=== PATIENT | male | born 1935 | race Caucasian/White ===

== ENCOUNTER 2016-07-27 02:29 | Observation (INO) | payer MEDICARE ==
[2016-07-27 02:41] LABS: Glucose,Whole Blood 300 mg/dL (75-99)
[2016-07-27] MEDS ORDERED: MORPHINE SULFATE 4 MG/ML SYRINGE IV STA (02:52)
[2016-07-27 03:34] LABS: Anion Gap 11 mmol/L; Blood Urea Nitrogen 14 mg/dL (9-20); C Reactive Protein 47.4 mg/L (<10.0); Calcium 9.1 mg/dL (8.4-10.2); Carbon Dioxide 24 mmol/L (22-30); Chloride 98 mmol/L (98-107); Glucose 307 mg/dL (74-99); Non-African American GFR(MDRD) >60 (>60 ml/min/1.73 sqM); Potassium 4.3 mmol/L (3.5-5.1); Sodium 133 mmol/L (137-145)
--- NOTE | 2016-07-27 03:46 | CT ---
EXAMINATION TYPE: CT brain wo con DATE OF EXAM: 07/27/2016 3:29 AM COMPARISON: NONE HISTORY: fever, LAWS/neck pain, depression CT DLP: 995.50 mGycm Automated exposure control for dose reduction was used. FINDINGS: There is no acute intracranial hemorrhage, mass effect, or midline shift identified. The cortical sulci and ventricles are prominent with age-related atrophic changes of brain. The poste rior horns of lateral ventricles especially on the right side are prominent probably related to centr al cerebral atrophy. Periventricular white matter ischemic changes are suggested bilaterally of chron ic nature. Vascular calcifications are noted in the base of the brain. The globes are intact. Xnee-or-ofaafhry mucosal thickening is noted in the maxillary and ethmoid and frontal, sphenoid sinuses with chronic sinusitis changes. IMPRESSION: 1. No acute intracranial hemorrhage, mass effect, or midline shift is seen. 2. Age-related atrophic changes of brain. 3. Chronic pansinusitis.
--- NOTE | 2016-07-27 04:46 | ED ---
Neck Injury/Pain HPI - General Chief Complaint: Neck Pain/Injury Stated Complaint: Neck Pain Time Seen by Provider: 07/27/16 02:35 Source: RN notes reviewed Mode of arrival: EMS Limitations: no limitations - History of Present Illness Initial Comments: This patient is an 81-year-old man who complains of headache and neck pain. The symptoms have been coming on over the course of tonight. The patient states that last week he had "flu," and now that he is getting over this he has developed occipital headache with neck pain. Patient states that the pain is severe, constant, and he is not really able to characterize the type of pain. He does have pain with movement of the neck. The patient is not having fevers. He is denying neurologic type symptoms. No rash. MD Complaint: neck pain Onset/Timin -: days(s) Place: home Radiation: head, occiput Severity: severe, constant Consistency: constant Improves With: none Worsens With: none Associated Symptoms: headache Treatments Prior to Arrival: none - Related Data Home Medications Medication Instructions Recorded Confirmed metFORMIN HCL 1,000 mg PO BID 12/01/15 12/02/15 Lisinopril [Zestril] 20 mg PO DAILY 12/02/15 12/02/15 Simvastatin 10 mg PO HS 12/02/15 12/02/15 Previous Rx's Medication Instructions Recorded Ciprofloxacin HCl [Cipro] 500 mg PO Q12HR #14 tablet 12/05/15 Fluconazole [Diflucan] 100 mg PO DAILY #7 tab 12/05/15 Losartan [Cozaar] 50 mg PO DAILY #30 tab 12/05/15 Mirtazapine [Remeron] 15 mg PO W/SUPPER #30 tab 12/05/15 Allergies Allergy/AdvReac Type Severity Reaction Status Date / Time strawberry Allergy Unknown Verified 07/27/16 06:47 Review of Systems ROS Statement: Those systems with pertinent positive or pertinent negative responses have been documented in the HPI. ROS Other: All systems not noted in ROS Statement are negative. Constitutional: Denies: fever, chills, weakness Eyes: Denies: eye pain, vision change ENT: Denies: ear pain, congestion Respiratory: Denies: cough, dyspnea Cardiovascular: Denies: chest pain, palpitations Gastrointestinal: Denies: abdominal pain, nausea, vomiting Genitourinary: Denies: dysuria Musculoskeletal: Denies: back pain Skin: Denies: rash Neurological: Reports: headache. Denies: weakness, numbness, paresthesias, confusion Past Medical History Past Medical History: Diabetes Mellitus, Hypertension Additional Past Medical History / Comment(s): aortic aneursym, hernia History of Any Multi-Drug Resistant Organisms: None Reported Past Surgical History: Unable to Obtain Past Psychological History: No Psychological Hx Reported Smoking Status: Former smoker Past Alcohol Use History: Occasional Past Drug Use History: None Reported - Past Family History Father Family Medical History: CVA/TIA Son(s) Additional Family Medical History / Comment(s): He has 2 sons. One has coronary artery disease and a stent placed at age 58. He has a second son with hypertension, cholesterol, diabetes. Daughter(s) Additional Family Medical History / Comment(s): He has 3 daughters. Brother(s) Additional Family Medical History / Comment(s): Patient has a total of 6 brothers and one from a myocardial infarction. One at age 84 from a bowel problem but not cancer. Sister(s) Additional Family Medical History / Comment(s): He has 4 sisters. General Exam Limitations: no limitations General appearance: alert, in distress Head exam: Present: atraumatic, normocephalic, normal inspection Eye exam: Present: normal appearance. Absent: scleral icterus, conjunctival injection ENT exam: Present: normal oropharynx, mucous membranes moist, TM's normal bilaterally Neck exam: Present: normal inspection. Absent: tenderness, meningismus, full ROM Respiratory exam: Present: normal lung sounds bilaterally. Absent: respiratory distress, wheezes, rales, rhonchi, stridor Cardiovascular Exam: Present: regular rate, normal rhythm, normal heart sounds. Absent: systolic murmur, diastolic murmur, rubs, gallop GI/Abdominal exam: Present: soft. Absent: distended, tenderness, guarding Extremities exam: Present: normal inspection, normal capillary refill. Absent: pedal edema, calf tenderness Back exam: Present: normal inspection. Absent: CVA tenderness (R), CVA tenderness (L) Neurological exam: Present: alert, oriented X3, CN II-XII intact. Absent: motor sensory deficit Skin exam: Present: warm, dry, intact, normal color. Absent: rash Course Vital Signs 07/27/16 07/27/16 07/27/16 02:38 05:01 05:25 Temperature 97 F L Pulse Rate 74 74 71 Respiratory 16 16 18 Rate Blood Pressure 196/93 160/83 162/83 O2 Sat by Pulse 97 97 94 L Oximetry 07/27/16 06:00 Temperature Pulse Rate 70 Respiratory 16 Rate Blood Pressure 148/78 O2 Sat by Pulse Oximetry - Reevaluation(s) Reevaluation #1: 07/27/16 05:48 Had lengthy discussion with patient and family members regarding the indications for, risks and benefits of lumbar puncture. At this point the patient is refusing, stating that even if this should lead to or disability he does not want to have the test performed. The patient's family does support his decision. I did explain that he is free to change his mind and request having lumbar puncture at any point, and that this will not affect his other treatment. Medical Decision Making - Medical Decision Making Patient is an 81-year-old man who is complaining of worst headache of life and some neck pain as well. - Lab Data Result diagrams: 07/27/16 03:08 Lab Results 07/27/16 07/27/16 07/27/16 Range/Units 02:40 03:08 03:08 ESR 66 H (0-15) mm/hr Sodium 133 L (137-145) mmol/L Potassium 4.3 (3.5-5.1) mmol/L Chloride 98 (98-107) mmol/L Carbon Dioxide 24 (22-30) mmol/L Anion Gap 11 mmol/L BUN 14 (9-20) mg/dL Creatinine 0.80 (0.66-1.25) mg/dL Est GFR (MDRD) Af Amer >60 (>60 ml/min/1.73 sqM) Est GFR (MDRD) Non-Af >60 (>60 ml/min/1.73 sqM) Glucose 307 H (74-99) mg/dL POC Glucose (mg/dL) 300 H (75-99) mg/dL POC Glu Production Control Supervisor ID Dalila Abreu A Plasma Lactic Acid Chapo (0.7-2.0) mmol/L Calcium 9.1 (8.4-10.2) mg/dL C-Reactive Protein 47.4 H (<10.0) mg/L 07/27/16 Range/Units 03:08 ESR (0-15) mm/hr Sodium (137-145) mmol/L Potassium (3.5-5.1) mmol/L Chloride (98-107) mmol/L Carbon Dioxide (22-30) mmol/L Anion Gap mmol/L BUN (9-20) mg/dL Creatinine (0.66-1.25) mg/dL Est GFR (MDRD) Af Amer (>60 ml/min/1.73 sqM) Est GFR (MDRD) Non-Af (>60 ml/min/1.73 sqM) Glucose (74-99) mg/dL POC Glucose (mg/dL) (75-99) mg/dL POC Glu Production Control Supervisor ID Plasma Lactic Acid Chapo 1.3 (0.7-2.0) mmol/L Calcium (8.4-10.2) mg/dL C-Reactive Protein (<10.0) mg/L Disposition Clinical Impression: Headache, Neck pain Disposition: ADMITTED IP TO THIS [facility] Condition: Undetermined
[2016-07-27] MEDS ORDERED: MORPHINE SULFATE 4 MG/ML SYRINGE IVP STA (05:37)
[2016-07-27] MEDS ORDERED: INSULIN REGULAR 100 UNIT/ML VIAL SQ STA (05:51)
[2016-07-27] MEDS ORDERED: SODIUM CHLORIDE 0.9% 1,000 ML IV ONE (05:51)
[2016-07-27] MEDS ORDERED: NALOXONE 0.4 MG/ML 1 ML VIAL IV PRN (05:53)
[2016-07-27] MEDS ORDERED: ONDANSETRON 4 MG/2 ML VIAL IVP PRN (05:53)
[2016-07-27] MEDS ORDERED: DIAZEPAM 5 MG/ML 2 ML SYRINGE IVP PRN (05:56)
[2016-07-27] MEDS ORDERED: cefTRIAXone 2,000 MG in SODIUM CHLORIDE 0.9% 100 ML IVPB STA (05:59)
[2016-07-27 07:29] LABS: Basophils # (A) 0.1 k/uL (0-0.2); Basophils % (A) 1 %; CH 32.9; Eosinophils # (A) 0.2 k/uL (0-0.7); Eosinophils % (A) 1 %; HCT 43.6 % (39.0-53.0); HDW 2.87; Luc # (Auto) 0.12; Luc % (Auto) 1; Lymphocytes # (A) 2.2 k/uL (1.0-4.8); Lymphocytes % (A) 20 %; MCH 31.6 pg (25.0-35.0); MCHC 34.5 g/dL (31.0-37.0); MCV 91.6 fL (80.0-100.0); Mean Platelet Volume 9.4; Monocytes # (A) 0.7 k/uL (0-1.0); Monocytes % (A) 7 %; Neutrophils # (A) 7.3 k/uL (1.3-7.7); Neutrophils % (A) 69 %; RBC 4.76 m/uL (4.30-5.90); RDW 12.5 % (11.5-15.5); WBC 10.6 k/uL (3.8-10.6); WBC (Perox) 10.35
[2016-07-27 08:15] LABS: Glucose,Whole Blood 283 mg/dL (75-99)
[2016-07-27] MEDS: SODIUM CHLORIDE 0.9% 1,000 ML IV SCH (09:53)
[2016-07-27] MEDS: metFORMIN 500 MG TAB PO SCH ×2 (09:54→20:52)
[2016-07-27] MEDS: LISINOPRIL 20 MG TAB PO SCH (09:54)
[2016-07-27] MEDS: FLUCONAZOLE 100 MG TAB PO SCH (09:54)
[2016-07-27] MEDS: MORPHINE SULFATE 4 MG/ML SYRINGE IV PRN ×3 (09:55→21:07)
[2016-07-27] MEDS: LOSARTAN 50 MG TAB PO SCH (09:55)
[2016-07-27] MEDS: FAMOTIDINE 20 MG TAB PO SCH ×2 (09:55→20:52)
[2016-07-27 12:25] LABS: Glucose,Whole Blood 202 mg/dL (75-99)
[2016-07-27] MEDS: INSULIN LISPRO (humaLOG) 300 UNIT/3 ML VIAL SQ SCH ×3 (13:34→20:52)
[2016-07-27 14:16] LABS: Hemoglobin A1C 12.4 % (4.2-6.1)
[2016-07-27] MEDS ORDERED: MIRTAZAPINE 15 MG TAB PO SCH (17:30)
[2016-07-27 17:32] LABS: Glucose,Whole Blood 191 mg/dL (75-99)
[2016-07-27 20:40] LABS: Glucose,Whole Blood 246 mg/dL (75-99)
[2016-07-27] MEDS: HEPARIN SODIUM,PORCINE 5,000 UNIT/ML 1 ML VIAL SQ SCH (20:52)
[2016-07-27] MEDS: AMOXIC-POT CLAV 875-125MG 1 EACH TAB PO SCH (20:52)
[2016-07-27 22:21] VITALS: RESP 16
--- NOTE | 2016-07-27 23:57 | P.HPIM ---
History of Present Illness H&P Date: 07/27/16 Chief Complaint: Severe headache, cervalgia, acute febrile illness hypertension and diabetes 81-year-old male one of Dr. Grover patient was not hospital last in November 2015 for generalized fatigue and tiredness who is known to have history of type 2 diabetes history of hypertension and aortic aneurysm history of hernia. Patient apparently lost his in October this year and has been going through severe depression and grief episode for the last 8 months. Patient developed to have febrile illness likely virus infection past week to 10 days he improved slightly but developed in the last 48 hours to have intractable headache photophobia and severe cephalgia with neck pain unexplained he ended up coming to the emergency department at [facility] where was seen and evaluated CT of the brain didn't show any abnormality. Patient did not have any neck rigidity or meningeal symptoms but he refused to go for a lumbar puncture for meningitis analysis. Patient was giving 1 g of Rocephin and admitted to the hospital shortly after culture was done and Neuro were consulted. Review of Systems Constitutional: Reports anorexia, Reports chronic pain, Reports fatigue, Reports lethargy, Reports malaise, Reports weakness, Denies as per HPI, Denies chills, Denies chronic headaches, Denies daytime sleepiness, Denies fever, Denies night sweats, Denies poor appetite, Denies sweats, Denies weight gain, Denies weight loss Eyes: bilateral as per HPI Ears: bilateral: decreased hearing Ears, nose, mouth and throat: Reports ant. neck pain, Reports headache, Reports mouth pain, Reports nasal congestion, Reports nose pain, Reports sinus pressure , Reports vertigo, Denies as per HPI, Denies bleeding gums, Denies dental pain, Denies dysphagia, Denies epistaxis, Denies hoarseness, Denies nasal discharge, Denies neck fullness/pressure, Denies neck lump, Denies odynophagia, Denies post -nasal drip, Denies sinus pain, Denies swelling in mouth, Denies swelling in throat, Denies sore throat, Denies voice changes Cardiovascular: Reports chest pain, Reports dyspnea on exertion, Reports irregular heart beat, Reports lightheadedness, Reports rapid heart beat, Reports shortness of breath, Denies as per HPI, Denies claudication, Denies decreased exercise tolerance, Denies edema, Denies high blood pressure, Denies leg edema, Denies orthopnea, Denies palpitations, Denies paroxysmal nocturnal dyspnea, Denies phlebitis, Denies syncope Respiratory: Reports congestion, Reports dyspnea, Denies as per HPI, Denies cough, Denies cough with sputum, Denies excessive sputum, Denies hemoptysis, Denies home oxygen, Denies pain, Denies pain on inspiration, Denies pleurisy, Denies respiratory infections, Denies sleep apnea, Denies snoring, Denies wheezing Gastrointestinal: Reports abdominal pain, Reports belching, Reports bloating, Reports dyspepsia, Reports early satiety, Reports indigestion, Reports nausea, Denies as per HPI, Denies BRBPR, Denies change in bowel habits, Denies coffee ground emesis, Denies constipation, Denies diarrhea, Denies excessive gas, Denies heartburn, Denies hematemesis, Denies hematochezia, Denies jaundice, Denies lactose intolerance, Denies loss of appetite, Denies melena, Denies vomiting Musculoskeletal: Reports arm numbness/tingling, Reports frequent falls, Reports myalgias, Denies as per HPI, Denies atrophy, Denies fractures, Denies gait dysfunction, Denies hot joints, Denies leg numbness/tingling, Denies limitation of motion, Denies loss of height, Denies low back pain, Denies morning stiffness , Denies muscle cramps, Denies muscle weakness, Denies neck pain, Denies neck stiffness, Denies prior amputations, Denies redness of joints, Denies shooting arm pain, Denies shooting leg pain Musculoskeletal: bilateral: ankle pain Integumentary: Reports dryness, Reports rash, Denies as per HPI, Denies acne, Denies boils, Denies brittle nails, Denies change in hair/nails, Denies color changes, Denies darkening of skin, Denies depigmentation, Denies foot/leg ulcers , Denies growths, Denies hirsutism, Denies lesions, Denies onychomycosis, Denies pruritus, Denies sores, Denies striae, Denies unusual bruising, Denies wounds Neurological: Reports ataxia, Reports balance difficulties, Reports burning pain , Reports change in mentation, Reports gait dysfunction, Reports headaches, Reports memory loss, Reports motor disturbance, Reports numbness, Reports paresthesias, Reports sensory deficit, Reports syncope, Reports tingling, Reports tremors, Reports weakness, Denies as per HPI, Denies aphasia, Denies change in smell/taste, Denies change in speech, Denies confusion, Denies convulsions, Denies double vision, Denies head injury, Denies hearing difficulties, Denies lack of coordination, Denies loss of vision, Denies migraines, Denies paralysis, Denies seizures, Denies spasticity, Denies tic, Denies transient paralysis, Denies vertigo, Denies visual changes Psychiatric: Reports anhedonia, Reports anxiety attacks, Reports change in appetite, Reports disorientation, Reports hopelessness, Reports insomnia, Reports irritability, Reports paranoia, Reports sadness/tearfulness, Reports suicidal ideation, Denies as per HPI, Denies anxiety, Denies change in libido, Denies change in sleep habits, Denies confusion, Denies depression, Denies difficulty concentrating, Denies hallucinations, Denies hypersomnia, Denies memory loss, Denies mood swings, Denies sleep disturbances Endocrine: Reports cold intolerance, Reports excessive sweating, Reports fatigue , Reports heat intolerance, Reports high blood sugars, Reports nocturia, Reports polydipsia, Reports polyphagia, Reports polyuria, Reports recent glucocorticoid use, Denies as per HPI, Denies deepening of the voice, Denies excessive thirst, Denies flushing, Denies increase in ring/shoe/hat size, Denies low blood sugars, Denies palpitations, Denies proptosis, Denies thyroid mass, Denies weight change Hematologic/Lymphatic: Reports easy bruising, Denies as per HPI, Denies easy bleeding, Denies lymphadenopathy, Denies lymphedema, Denies thrombophilia Allergic/Immunologic: Reports allergic rhinitis, Denies as per HPI, Denies anaphylaxis, Denies angioedema, Denies gluten intolerance, Denies persistent infections, Denies seasonal allergies, Denies urticaria, Denies wheezing Past Medical History Past Medical History: Diabetes Mellitus, Hyperlipidemia, Hypertension Additional Past Medical History / Comment(s): Recent "flu", NIDDM type II, aortic aneursym, abdominal hernia, bilateral cataracts History of Any Multi-Drug Resistant Organisms: None Reported Past Surgical History: Tonsillectomy Past Anesthesia/Blood Transfusion Reactions: No Reported Reaction Past Psychological History: Depression Additional Psychological History / Comment(s): Pt lives alone. He has a daughter who is very helpful. He has home care being initiated. He uses a can or walker to ambulate. He no longer drives. His deneen, Idalia takes him to appts. He gets meals on wheels. He states he was very depressed when his spouse October 2015 but that the depression has gotten alittle better. Smoking Status: Former smoker Past Alcohol Use History: Occasional Additional Past Alcohol Use History / Comment(s): Pt states he started smoking in 1949 and quit in 2008. Past Drug Use History: None Reported - Past Family History Father Family Medical History: CVA/TIA Son(s) Additional Family Medical History / Comment(s): He has 2 sons. One has coronary artery disease and a stent placed at age 58. He has a second son with hypertension, cholesterol, diabetes. Daughter(s) Additional Family Medical History / Comment(s): He has 3 daughters. Brother(s) Additional Family Medical History / Comment(s): Patient has a total of 6 brothers and one from a myocardial infarction. One at age 84 from a bowel problem but not cancer. Sister(s) Additional Family Medical History / Comment(s): He has 4 sisters. Medications and Allergies Home Medications Medication Instructions Recorded Confirmed Type metFORMIN HCL 1,000 mg PO BID 12/01/15 07/27/16 History Lisinopril [Zestril] 20 mg PO DAILY 12/02/15 07/27/16 History Allergies Allergy/AdvReac Type Severity Reaction Status Date / Time strawberry Allergy Unknown Verified 07/27/16 06:47 Physical Exam Vitals: Vital Signs Temp Pulse Resp BP Pulse Ox 07/27/16 08:40 96.9 F L 71 17 172/79 92 L Intake and Output 07/26/16 07/27/16 07/27/16 22:59 06:59 14:59 Other: Voiding Method Toilet - Constitutional General appearance: cooperative, disheveled, mild distress, no acute distress - EENT Eyes: abnormal pupil, normal appearance ENT: hard of hearing, no hearing grossly normal, no NA/AT, normal oropharynx, no other, no pharyngeal erythema, no thrush, no tonsillar exudates, no tonsillar swelling Ears: bilateral: normal - Neck Neck: no lymphadenopathy, no normal ROM, no other, rigidity, stridor, thyromegaly Carotids: bilateral: upstroke normal, upstroke delayed Thyroid: bilateral: normal size, enlarged - Respiratory Respiratory: bilateral: CTA, diminished - Cardiovascular Rhythm: regular Heart sounds: normal: S1, S2 Abnormal Heart Sounds: S3 Gallop - Gastrointestinal General gastrointestinal: no absent bowel sounds, no decreased bowel sounds, distended, no hepatomegaly, no hyperactive bowel sounds, normal bowel sounds, no organomegaly, no rigid, no scaphoid, soft, no splenomegaly, no tenderness, no umbilical hernia, no ventral hernia - Integumentary Integumentary: no calor, no cellulitis, cyanotic, decreased turgor, no flushed, no jaundiced, normal, no normal turgor, pale, rash, no ulcer - Neurologic Neurologic: CNII-XII intact - Musculoskeletal Musculoskeletal: gait normal, generalized weakness, strength equal bilaterally - Psychiatric Psychiatric: A&O x's 3, appropriate affect Results CBC & Chem 7: 07/27/16 03:08 07/27/16 03:08 Labs: Abnormal Lab Results - Last 24 Hours (Table) 07/27/16 07/27/16 Range/Units 08:06 12:19 POC Glucose (mg/dL) 283 H 202 H (75-99) mg/dL Thrombosis Risk Factor Assmnt - DVT/VTE Prophylaxis DVT/VTE Prophylaxis: Pharmacologic Prophylaxis ordered, Mechanical Prophylaxis ordered - Choose All That Apply Any of the Below Risk Factors Present?: Yes Each Factor Represents 1 point: Obesity (BMI >25) Other Risk Factors: Yes Each Risk Factor Represents 3 Points: Age 75 years or older Other congenital or acquired thrombophilia - If yes, enter type in comment: No Thrombosis Risk Factor Assessment Total Risk Factor Score: 4 Thrombosis Risk Factor Assessment Level: Moderate Risk Assessment and Plan Plan: 1 severe headache and cephalgia: Patient was admitted to the hospital will continue small dose of Dilaudid for now consult neurology and patient should go for LP with analysis patient currently still refuse. 2 debility: Not been able to ambulate and walk we'll consult PTOT and advance his physical therapy. 3 recent febrile illness: Most likely was viral at the time no sign of infection at this time we will do UA chest x-ray and culture. 4 diabetes: Patient has been on metformin 1000 mg twice a day continue medication continue Accu-Chek with sliding scales coverage. 5 hypertension: Has been on lisinopril 20 mg daily resume medication and add Cozaar 50 mg a day. 6 severe acute pain: Patient remain on morphine 4 mg IV every 4 hours as needed. 7 severe GERD: Patient has been on Pepcid 20 mg twice a day continue medication. 8 severe depression: Consult psych inpatient will be started on Remeron along with Valium as needed. 9 GI prophylaxis: Patient will be on heparin subcutaneous. CODE STATUS: Full code. Expectation from this admission: Patient be in the hospital for more than 2 nights.
[2016-07-28 07:29] LABS: Glucose,Whole Blood 213 mg/dL (75-99)
[2016-07-28 07:35] VITALS: BP 104/59; TEMP 97.8
[2016-07-28] MEDS: FAMOTIDINE 20 MG TAB PO SCH (07:43)
[2016-07-28] MEDS: LOSARTAN 50 MG TAB PO SCH (07:44)
[2016-07-28] MEDS: LISINOPRIL 20 MG TAB PO SCH (07:44)
[2016-07-28] MEDS: FLUCONAZOLE 100 MG TAB PO SCH (07:44)
[2016-07-28] MEDS: AMOXIC-POT CLAV 875-125MG 1 EACH TAB PO SCH (07:45)
[2016-07-28] MEDS: metFORMIN 500 MG TAB PO SCH (07:45)
[2016-07-28] MEDS: INSULIN LISPRO (humaLOG) 300 UNIT/3 ML VIAL SQ SCH ×2 (07:46→12:55)
[2016-07-28] MEDS: HEPARIN SODIUM,PORCINE 5,000 UNIT/ML 1 ML VIAL SQ SCH (07:46)
[2016-07-28] MEDS: SODIUM CHLORIDE 0.9% 1,000 ML IV SCH (08:03)
[2016-07-28 08:09] VITALS: PULSE 71
--- NOTE | 2016-07-28 08:40 | CONS ---
DATE OF CONSULTATION: 07/27/2016 CHIEF COMPLAINT: Headache and neck pain. HISTORY OF PRESENT ILLNESS: Mr. Williamson is a pleasant 81-year-old male who is being evaluated by the neurology service per the request of Dr. Maria for the above-mentioned complaints. The patient was brought into [facility] Emergency Room with complaints of headache and upper neck pain that started the day before. The pain was severe and the patient states that it started subacutely and increased in intensity over the past 24 hours. He denied any recent head or neck injuries. The patient denies any fevers at this time, but states that he did have the flu 1 to 2 weeks ago but his symptoms resolved several days ago. A stat CT scan of the brain was done, which showed no acute intracranial abnormalities. There was generalized atrophy and evidence of pansinusitis. The patient's headache was occipital region and he describes it as a constant throbbing pain that he rated as severe as 8 out of 10 in intensity. At the time of my evaluation, he is resting in his bed and he reports improvements in the severity of his headache but denies any complete resolution. His CBC was normal. His Sed rate was elevated at 63 and his CRP was elevated at 47.4. His comprehensive metabolic profile showed mild hyponatremia at 133 and hyperglycemia at 307. The patient does have history of diabetes and his hemoglobin A1c was elevated at 12.4. PAST MEDICAL HISTORY: Hypertension, diabetes, history of aortic aneurysm. SOCIAL HISTORY: The patient is a former smoker. He occasionally drinks alcohol. He denies any drug use. FAMILY HISTORY: Positive for strokes and heart disease. HOME MEDICATIONS: Reviewed in the chart. ALLERGIES: STRAWBERRIES. REVIEW OF SYSTEMS: CONSTITUTIONAL: Negative. EYES: Negative. ENT: Negative. CARDIOVASCULAR: Negative. RESPIRATORY: Negative. NEUROLOGICAL: As mentioned above. He denies any lateralizing numbness or weakness. GASTROINTESTINAL: Positive for occasional heartburn. GENITOURINARY: Negative. PSYCHIATRIC: Negative. ENDOCRINE: Positive for diabetes. MUSCULOSKELETAL: Positive for occasional joint pain. DERMATOLOGICAL: Negative. PHYSICAL EXAM: Vital signs show a temperature of 96.9, pulse 71, respirations 17, blood pressure 172/79. GENERAL APPEARANCE: The patient is a well-developed, elderly male who appears to be in no acute distress. HEENT: Normocephalic, atraumatic, no facial asymmetry is ( ). Extraocular muscles are intact, but the patient does have exotropia on the left side. Tenderness to palpation is felt along bilateral greater occipital nerve region, left more than right. Neck is supple with no masses felt. Tenderness to palpation is felt along the upper posterior cervical spine. CARDIOVASCULAR: Regular rate and rhythm. ABDOMEN: Nontender, nondistended. Extremities showed no edema or clubbing. NEUROLOGICAL EXAM: The patient is alert, aware and oriented x3. Speech is mildly dysarthric. Language testing is normal. Cranial nerve testing showed left eye exotropia. Strength is 5 minus out of 5 in all 4 extremities. Sensory exam was normal to light touch in all 4 extremities. Mild postural tremors are seen. IMPRESSION: 1. Intractable headache. 2. Cervicalgia. 3. Occipital neuritis. 4. Upper cervical spine facet joint pain. 5. Pansinusitis. 6. Hypertension. 7. Diabetes. RECOMMENDATIONS: The patient's posterior headache is likely due to occipital neuritis and cervical spondylosis given the neurological examination. His neck is supple and I doubt any infectious process causing his headache. The patient did have the flu 1 to 2 weeks ago but there is no evidence of any viral meningitis on my examination. The patient has been afebrile and his CBC was normal and his neck was supple. His headache intensity has improved. If his pain recurs, he may benefit from a greater occipital nerve block procedure. I will also consider cervical medial branch blocks at the C2 and C3 level if his pain worsens again. His blood pressure was elevated on arrival and this may have contributed to his headache. He also has evidence of pansinusitis on the CT scan of the brain. I will try him on Augmentin twice daily for 7 days. Continue the rest of your current workup and management. I will continue to follow with you. Further recommendations to follow. Thank you for allowing me to participate in the care of your patient. If you have any questions, please feel free to contact me.
[2016-07-28 11:31] LABS: Glucose,Whole Blood 226 mg/dL (75-99)
--- NOTE | 2016-07-28 11:57 | P.CN ---
Psychiatric Consult - . Consult date: 07/28/16 Consult:: IDENTIFYING DATA: His 81-year-old male admitted to medicine service with severe and intractable headache, photophobia and neck pain. HISTORY OF PRESENT ILLNESS: Medicine service consulted psychiatry to evaluate his symptoms of depression and need for mental health treatment. I reviewed the medical record and interviewed Mr. Williamson. He talked about losing his in October 2015. He stated he feels "all alone and abandoned." He has been "slowly adjusting" to her deatg but talked about the difficulty being alone after 63 years of marriage. He complained that his children don't call or visit as much as he would like with the exception of one daughter. He feels depressed and at times hopeless. He denied suicidal ideation or wishes. He described difficulty falling and staying asleep. He has lost interest in many activities ( I'm not certain his loss of interest is related to a depressive disorder because he also talked about always engaging in activities with his ). He has decreased energy and decreased appetite. He denied feelings of guilt. We completed the Geriatric Depression Scale (short form). These symptoms suggestive of a depressive episode include: Dropping many of his activities and interests, feeling that his life is empty, not feeling "in good spirits" most the time, feeling unhappy most of the time, staying at home rather than going out and doing things, feeling worthless and not having energy. He denied psychotic symptoms such as hallucinations, ideas reference, thought insertion, thought broadcasting or thought control. He described feeling anxious but denied symptoms suggestive of panic attack. He denied obsessions and compulsions. He does not drink alcohol and does not use drugs to get high, help him sleep or changes mood. During the interview he often repeated himself and perseverated on the of his and his feeling of abandonment and loneliness. PAST PSYCHIATRIC HISTORY: He denied of history of mental health treatment.. SUBSTANCE USE HISTORY: He denied a history of alcohol use suggestive of alcohol use disorder. He stated when he was younger he would drink usually with friends or family. He denied ever using drugs such as marijuana, cocaine, heroin etc. FAMILY PSYCHIATRIC/SUBSTANCE USE HISTORY: He is unaware of family history of mental health or substance use problems. SOCIAL HISTORY: He has been retired for 25 years. He when he was 17 and his was 14. They had 7 children; 2 from cystic fibrosis (5 months and 5 years). He described a distant relationship with his children. He feels they did not make an effort to contact him with the exception of his daughter. He has 7 grandchildren. He lives alone in his home in [facility]. MENTAL STATUS EXAM: He presented as a disheveled appearing elderly male who was pleasant on approach. He maintained eye contact and attended to the interview. He had no distinguishing features or prominent physical abnormalities. He had a depressed facial expression. He was alert and oriented to person, place and time. He showed psychomotor retardation but no abnormal movements. I did not evaluate his gait. His speech was spontaneous with decreased rhythm and volume. He had no articulation difficulties. His affect was depressed and not reactive. He denied suicidal ideation and wishes. He denied homicidal ideation. He expressed depressive cognitions including hopelessness and helplessness. He denied feelings of worthlessness. He denied obsessions and compulsions. He ruminated about the of his , his loneliness and feelings of abandonment. He denied phobias and did not express ideas reference or paranoid ideation. His thinking was concrete but his associations were coherent and logical. He denied hallucinations and did not appear to be responding to internal stimuli. We completed the [facility] Orientation Memory and Concentration test. He had difficulty persisting with the examination and required much encouragement. His total weighted error score was 14; a weighted error score greater than 10 is usually consistent with cognitive impairment. He knew the month and the year. He was able to register the memory phrase "Daniel Brewster, [address] [place] [id number]." He was unable to guess the correct time within 1 hour the actual time. He was able to count backwards from 20-1 and see the months of the year in reverse order. He did not remember the memory phrase after the destruction exercise. IMPRESSIONS: He is neatly 1-year-old man presented to medicine service with a severe intractable headache. During his medical assessment to talked about 's and feelings of depression. During our interview he identified several symptoms of depression but primarily focused on issues of grief and loss. He showed some impairment on cognitive testing but I am uncertain whether the performances related to his lack of motivation rather than an underlying cognitive impairment. PLAN: He may benefit from a trial of an antidepressant. I started sertraline 25 mg at bedtime and the dose should be titrated according to tolerance and side effects. More importantly, he would benefit from grief counseling. Because of his age and infirmity I would suggest a consult to provide home care mental health services. 07/28/16 11:36
[2016-07-28 13:15] VITALS: BMI 34.9
--- NOTE | 2016-07-28 16:22 | P.DS ---
Providers Date of admission: 07/27/16 06:19 Expected date of discharge: 07/28/16 Attending physician: Andre Maria Consults: 07/27/16 11:02 Consult Physician Routine Consulting Provider: Daniel Adams Consult Reason/Comments: depression, suicidal Do you want consulting provider notified?: Yes Primary care physician: Gera Grover [facility] Course: 81-year-old male one of Dr. Grover patient was not hospital last in November 2015 for generalized fatigue and tiredness who is known to have history of type 2 diabetes history of hypertension and aortic aneurysm history of hernia. Patient apparently lost his in October this year and has been going through severe depression and grief episode for the last 8 months. Patient developed to have febrile illness likely virus infection past week to 10 days he improved slightly but developed in the last 48 hours to have intractable headache photophobia and severe cephalgia with neck pain unexplained he ended up coming to the emergency department at [facility] where was seen and evaluated CT of the brain didn't show any abnormality. Patient did not have any neck rigidity or meningeal symptoms but he refused to go for a lumbar puncture for meningitis analysis. Patient was giving 1 g of Rocephin and admitted to the hospital shortly after culture was done and Neuro were consulted. 07/28: Patient has been seen by psychiatry with plan to start Zoloft however psychiatry noticed that he had mirtazapine on his home medication list but once this was clarified this wass previously been discontinued. We are starting the patient on Zoloft as initially planned. His mood is much improved today. Blood sugars have been running high for which Januvia will be added for home. Neurology has recommended the patient may and if it from greater occipital nerve block procedure and or cervical medial branch blocks at the C2 and C3 level. Patient started on Augmentin for sinusitis. Patient will be discharged home today in stable condition. Discharge diagnoses: 1 severe headache and cephalgia due to occipital neuritis and cervical spondylosis. 2 sinusitis 3 generalized debilitation 4 diabetes mellitus type II, uncontrolled with hemoglobin A1c of 12.4 5 hypertension 6 severe acute pain 7 severe GERD 8 severe depression, recurrent Discharge plan: Return home Impression and plan of care have been directed as dictated by the signing physician. Mena Gallardo nurse practitioner acting as scribe for signing physician. Cc: Dr. Gera Grover Patient Condition at Discharge: Good Plan - Discharge Summary New Discharge Prescriptions: Amoxic-Pot Clav 875-125Mg [Augmentin 875-125] 1 each PO Q12HR #14 tab Sertraline HCl [Zoloft] 25 mg PO DAILY #30 tab sitaGLIPtin [Januvia] 100 mg PO DAILY #30 tab Discharge Medication List metFORMIN HCL 1,000 mg PO BID 12/01/15 [History] Lisinopril [Zestril] 20 mg PO DAILY 12/02/15 [History] Amoxic-Pot Clav 875-125Mg [Augmentin 875-125] 1 each PO Q12HR #14 tab 07/28/16 [ Rx] Sertraline HCl [Zoloft] 25 mg PO DAILY #30 tab 07/28/16 [Rx] sitaGLIPtin [Januvia] 100 mg PO DAILY #30 tab 07/28/16 [Rx] Follow up Appointment(s)/Referral(s): Vicky Romero MD [STAFF PHYSICIAN] - 1 Week (Dr. Romero's office will call patient with a follow up appointment.) Gera Grover DO [Primary Care Provider] - 08/12/16 11:20 am Patient Instructions/Handouts: Amoxicillin/Clavulanate Potassium (By mouth), Sertraline (By mouth), Sitagliptin (By mouth), Diabetic Hyperglycemia (GEN), Hemoglobin A1c (GEN) Activity/Diet/Wound Care/Special Instructions: residential home care - Discharge Disposition: HOME WITH HOME HEALTH SERVICES
== END 2016-07-28 14:30 | disposition home health service (06) ==
LOC: EC 02:29 → 5MS5E 06:19
PROVIDERS: ADMIT Internal Medicine; ATTEND Internal Medicine
DX: M54.81 Occipital neuralgia (principal); M47.812 Spondylosis without myelopathy or radiculopathy, cervical region; J32.4 Chronic pansinusitis; E11.65 Type 2 diabetes mellitus with hyperglycemia; I10 Essential (primary) hypertension; R52 Pain, unspecified; K21.9 Gastro-esophageal reflux disease without esophagitis; F33.9 Major depressive disorder, recurrent, unspecified; H53.149 Visual discomfort, unspecified; E78.5 Hyperlipidemia, unspecified; R70.0 Elevated erythrocyte sedimentation rate; E87.1 Hypo-osmolality and hyponatremia; E66.9 Obesity, unspecified; Z68.35 Body mass index [BMI] 35.0-35.9, adult; G31.9 Degenerative disease of nervous system, unspecified; Z87.891 Personal history of nicotine dependence; Z86.79 Personal history of other diseases of the circulatory system; Z79.84 Long term (current) use of oral hypoglycemic drugs; Z79.899 Other long term (current) drug therapy; Z82.3 Family history of stroke; Z82.49 Family history of ischemic heart disease and other diseases of the circulatory system; Z83.3 Family history of diabetes mellitus
CPT/HCPCS: 36415; 80048; 85652; 83036; 83605; 85025; 86140; 70450; 99285; 96365; 96375; 96376; 96361; G0378 ×2; J2270; J1644 ×2; J0696; 96372

== ENCOUNTER 2017-01-03 23:52 | Inpatient (IN) | payer MEDICARE ==
--- NOTE | 2017-01-04 01:19 | ED ---
Fall HPI - General Chief Complaint: Fall Stated Complaint: Fall Time Seen by Provider: 01/03/17 23:59 Source: EMS Mode of arrival: EMS - History of Present Illness Initial Comments: An 81-year-old man who is brought in to be evaluated for generalized weakness. The patient states that he had gone to sit in a reclining chair that swivels, and that he slipped off the edge of it going to the floor. The patient states that he was not able to get up, due to generalized weakness. He has been having weakness over the past few days but feels it is worse tonight. In the fall he states that he may have hurt his right leg just above the ankle. The patient has had similar episodes before where he is had generalized weakness and also had falls. Finally when nursing was reviewed with the patient he does admit to moderate depression related to being alone after his 's a little over a year ago. The patient expresses that he may be better off dying, but he denies any suicidal ideation. MD Complaint: fall -: hour(s) Fall From: chair When Fall Occurred: 1-3 hours LITIGATION LEGAL ASSISTANT Fall Witnessed: no Place Fall Occurred: home Loss of Consciousness: none Prolonged Down Time?: no Symptoms Prior to Fall: none Location - Extremities: Right: Leg Severity: mild Quality: dull Context: tripped/slipped - Related Data Home Medications Medication Instructions Recorded Confirmed metFORMIN HCL 1,000 mg PO BID 12/01/15 01/04/17 Lisinopril [Zestril] 20 mg PO DAILY 12/02/15 01/04/17 Lactose-Reduced Food [Ensure Plus] 1 can PO BID 01/04/17 01/04/17 Multivitamins, Thera [Multivitamin 1 tab PO DAILY 01/04/17 01/04/17 (formulary)] Simvastatin [Zocor] 10 mg PO HS 01/04/17 01/04/17 Allergies Allergy/AdvReac Type Severity Reaction Status Date / Time strawberry Allergy Unknown Verified 01/04/17 07:16 Review of Systems ROS Statement: Those systems with pertinent positive or pertinent negative responses have been documented in the HPI. ROS Other: All systems not noted in ROS Statement are negative. Constitutional: Reports: weakness. Denies: fever, chills Eyes: Denies: vision change Respiratory: Denies: cough, dyspnea Cardiovascular: Denies: chest pain, palpitations, orthopnea, edema, syncope Gastrointestinal: Denies: abdominal pain, vomiting, diarrhea, melena, hematochezia Musculoskeletal: Denies: back pain Skin: Denies: rash Neurological: Reports: weakness. Denies: headache, numbness, paresthesias, confusion Psychiatric: Reports: depression. Denies: homicidal thoughts, suicidal thoughts Past Medical History Past Medical History: Diabetes Mellitus, Hyperlipidemia, Hypertension Additional Past Medical History / Comment(s): Recent "flu", NIDDM type II, aortic aneursym, abdominal hernia, bilateral cataracts History of Any Multi-Drug Resistant Organisms: None Reported Past Surgical History: Tonsillectomy Past Anesthesia/Blood Transfusion Reactions: No Reported Reaction Past Psychological History: Depression Smoking Status: Former smoker Past Alcohol Use History: None Reported Past Drug Use History: None Reported - Past Family History Father Family Medical History: CVA/TIA Son(s) Additional Family Medical History / Comment(s): He has 2 sons. One has coronary artery disease and a stent placed at age 58. He has a second son with hypertension, cholesterol, diabetes. Daughter(s) Additional Family Medical History / Comment(s): He has 3 daughters. Brother(s) Additional Family Medical History / Comment(s): Patient has a total of 6 brothers and one from a myocardial infarction. One at age 84 from a bowel problem but not cancer. Sister(s) Additional Family Medical History / Comment(s): He has 4 sisters. General Exam Limitations: no limitations General appearance: alert, in no apparent distress Head exam: Present: atraumatic, normocephalic Eye exam: Present: normal appearance. Absent: scleral icterus, conjunctival injection Neck exam: Present: normal inspection, full ROM Respiratory exam: Present: normal lung sounds bilaterally. Absent: respiratory distress, wheezes, rales, rhonchi, stridor, chest wall tenderness Cardiovascular Exam: Present: regular rate, normal rhythm, normal heart sounds. Absent: systolic murmur, diastolic murmur, rubs, gallop GI/Abdominal exam: Present: soft. Absent: distended, tenderness, guarding, rebound, mass Extremities exam: Present: normal inspection, tenderness (Patient has some mild tenderness proximal to the right ankle.), normal capillary refill. Absent: pedal edema, calf tenderness Back exam: Present: normal inspection. Absent: CVA tenderness (R), CVA tenderness (L), vertebral tenderness Neurological exam: Present: alert, CN II-XII intact. Absent: motor sensory deficit Psychiatric exam: Present: depressed. Absent: homicidal ideation, suicidal ideation Skin exam: Present: warm, dry, intact, normal color. Absent: rash Course Vital Signs 01/03/17 01/04/17 01/04/17 23:53 01:30 02:00 Temperature 99.3 F 98.4 F Pulse Rate 88 76 78 Respiratory 20 20 20 Rate Blood Pressure 157/78 154/74 149/78 O2 Sat by Pulse 91 L 94 L 93 L Oximetry 01/04/17 01/04/17 01/04/17 03:00 03:54 04:23 Temperature 97.7 F Pulse Rate 76 81 80 Respiratory 20 20 Rate Blood Pressure 145/78 141/76 127/67 O2 Sat by Pulse 93 L 94 L 93 L Oximetry 01/04/17 01/04/17 06:42 06:44 Temperature 97.8 F Pulse Rate 75 72 Respiratory 20 Rate Blood Pressure 110/59 137/74 O2 Sat by Pulse 95 Oximetry Medical Decision Making - Medical Decision Making Patient is an 81-year-old man in for generalized weakness. On his exam he does appear to be mildly dehydrated and the labs to support dehydration. Workup reveals that he has suspected early left lower lobe infiltrate and patient started on Levofloxacin. We did attempt to hydrate the patient and then see if he was able to ambulate, as he preferred to go home. The patient did remain significantly weak following the fluids and therefore admitted for further antibiotic and fluid therapy. Patient's family is upset that he was in the emergency Department for this long. However the patient was wanting to go home and we were attempting to hydrate him to see if this would improve things. Attempted to explain this however they do remain upset at the duration in the emergency department. - Lab Data Result diagrams: 01/04/17 00:05 01/04/17 00:05 Lab Results 01/04/17 01/04/17 01/04/17 Range/Units 00:05 00:05 00:05 WBC 13.4 H (3.8-10.6) k/uL RBC 4.80 (4.30-5.90) m/uL Hgb 15.5 (13.0-17.5) gm/dL Hct 44.6 (39.0-53.0) % MCV 93.0 (80.0-100.0) fL MCH 32.3 (25.0-35.0) pg MCHC 34.7 (31.0-37.0) g/dL RDW 12.9 (11.5-15.5) % Plt Count 274 (150-450) k/uL Neutrophils % 71 % Lymphocytes % 19 % Monocytes % 8 % Eosinophils % 1 % Basophils % 1 % Neutrophils # 9.5 H (1.3-7.7) k/uL Lymphocytes # 2.5 (1.0-4.8) k/uL Monocytes # 1.0 (0-1.0) k/uL Eosinophils # 0.2 (0-0.7) k/uL Basophils # 0.1 (0-0.2) k/uL PT (9.0-12.0) sec INR (<1.1) APTT (22.0-30.0) sec Sodium 132 L (137-145) mmol/L Potassium 4.6 (3.5-5.1) mmol/L Chloride 96 L (98-107) mmol/L Carbon Dioxide 26 (22-30) mmol/L Anion Gap 10 mmol/L BUN 26 H (9-20) mg/dL Creatinine 0.90 (0.66-1.25) mg/dL Est GFR (MDRD) Af Amer >60 (>60 ml/min/1.73 sqM) Est GFR (MDRD) Non-Af >60 (>60 ml/min/1.73 sqM) Glucose 422 H (74-99) mg/dL POC Glucose (mg/dL) (75-99) mg/dL POC Glu Nut Culler ID Plasma Lactic Acid Chapo (0.7-2.0) mmol/L Calcium 9.3 (8.4-10.2) mg/dL Magnesium 2.0 (1.6-2.3) mg/dL Total Bilirubin 0.9 (0.2-1.3) mg/dL AST 20 (17-59) U/L ALT 32 (21-72) U/L Alkaline Phosphatase 108 (38-126) U/L Troponin I (0.000-0.034) ng/mL Total Protein 6.3 (6.3-8.2) g/dL Albumin 3.7 (3.5-5.0) g/dL TSH 4.910 H (0.465-4.680) mIU/L Urine Color Urine Appearance (Clear) Urine pH (5.0-8.0) Ur Specific Epes (1.001-1.035) Urine Protein (Negative) Urine Glucose (UA) (Negative) Urine Ketones (Negative) Urine Blood (Negative) Urine Nitrite (Negative) Urine Bilirubin (Negative) Urine Urobilinogen (<2.0) mg/dL Ur Leukocyte Esterase (Negative) Urine RBC (0-5) /hpf Urine WBC (0-5) /hpf Urine Mucus (None) /hpf Acetone, Qual Negative (Negative) 01/04/17 01/04/17 01/04/17 Range/Units 00:05 00:05 00:05 WBC (3.8-10.6) k/uL RBC (4.30-5.90) m/uL Hgb (13.0-17.5) gm/dL Hct (39.0-53.0) % MCV (80.0-100.0) fL MCH (25.0-35.0) pg MCHC (31.0-37.0) g/dL RDW (11.5-15.5) % Plt Count (150-450) k/uL Neutrophils % % Lymphocytes % % Monocytes % % Eosinophils % % Basophils % % Neutrophils # (1.3-7.7) k/uL Lymphocytes # (1.0-4.8) k/uL Monocytes # (0-1.0) k/uL Eosinophils # (0-0.7) k/uL Basophils # (0-0.2) k/uL PT 10.4 (9.0-12.0) sec INR 1.0 (<1.1) APTT 22.5 (22.0-30.0) sec Sodium (137-145) mmol/L Potassium (3.5-5.1) mmol/L Chloride (98-107) mmol/L Carbon Dioxide (22-30) mmol/L Anion Gap mmol/L BUN (9-20) mg/dL Creatinine (0.66-1.25) mg/dL Est GFR (MDRD) Af Amer (>60 ml/min/1.73 sqM) Est GFR (MDRD) Non-Af (>60 ml/min/1.73 sqM) Glucose (74-99) mg/dL POC Glucose (mg/dL) (75-99) mg/dL POC Glu Nut Culler ID Plasma Lactic Acid Chapo 1.6 (0.7-2.0) mmol/L Calcium (8.4-10.2) mg/dL Magnesium (1.6-2.3) mg/dL Total Bilirubin (0.2-1.3) mg/dL AST (17-59) U/L ALT (21-72) U/L Alkaline Phosphatase (38-126) U/L Troponin I <0.012 (0.000-0.034) ng/mL Total Protein (6.3-8.2) g/dL Albumin (3.5-5.0) g/dL TSH (0.465-4.680) mIU/L Urine Color Urine Appearance (Clear) Urine pH (5.0-8.0) Ur Specific Epes (1.001-1.035) Urine Protein (Negative) Urine Glucose (UA) (Negative) Urine Ketones (Negative) Urine Blood (Negative) Urine Nitrite (Negative) Urine Bilirubin (Negative) Urine Urobilinogen (<2.0) mg/dL Ur Leukocyte Esterase (Negative) Urine RBC (0-5) /hpf Urine WBC (0-5) /hpf Urine Mucus (None) /hpf Acetone, Qual (Negative) 01/04/17 01/04/17 01/04/17 Range/Units 03:44 04:22 05:34 WBC (3.8-10.6) k/uL RBC (4.30-5.90) m/uL Hgb (13.0-17.5) gm/dL Hct (39.0-53.0) % MCV (80.0-100.0) fL MCH (25.0-35.0) pg MCHC (31.0-37.0) g/dL RDW (11.5-15.5) % Plt Count (150-450) k/uL Neutrophils % % Lymphocytes % % Monocytes % % Eosinophils % % Basophils % % Neutrophils # (1.3-7.7) k/uL Lymphocytes # (1.0-4.8) k/uL Monocytes # (0-1.0) k/uL Eosinophils # (0-0.7) k/uL Basophils # (0-0.2) k/uL PT (9.0-12.0) sec INR (<1.1) APTT (22.0-30.0) sec Sodium (137-145) mmol/L Potassium (3.5-5.1) mmol/L Chloride (98-107) mmol/L Carbon Dioxide (22-30) mmol/L Anion Gap mmol/L BUN (9-20) mg/dL Creatinine (0.66-1.25) mg/dL Est GFR (MDRD) Af Amer (>60 ml/min/1.73 sqM) Est GFR (MDRD) Non-Af (>60 ml/min/1.73 sqM) Glucose (74-99) mg/dL POC Glucose (mg/dL) 354 H 362 H (75-99) mg/dL POC Glu Nut Culler ID PolylSkye Ashley Plasma Lactic Acid Chapo (0.7-2.0) mmol/L Calcium (8.4-10.2) mg/dL Magnesium (1.6-2.3) mg/dL Total Bilirubin (0.2-1.3) mg/dL AST (17-59) U/L ALT (21-72) U/L Alkaline Phosphatase (38-126) U/L Troponin I (0.000-0.034) ng/mL Total Protein (6.3-8.2) g/dL Albumin (3.5-5.0) g/dL TSH (0.465-4.680) mIU/L Urine Color Yellow Urine Appearance Clear (Clear) Urine pH 5.0 (5.0-8.0) Ur Specific Epes 1.028 (1.001-1.035) Urine Protein 1+ H (Negative) Urine Glucose (UA) 4+ H (Negative) Urine Ketones 1+ H (Negative) Urine Blood Negative (Negative) Urine Nitrite Negative (Negative) Urine Bilirubin Negative (Negative) Urine Urobilinogen <2.0 (<2.0) mg/dL Ur Leukocyte Esterase Negative (Negative) Urine RBC <1 (0-5) /hpf Urine WBC <1 (0-5) /hpf Urine Mucus Rare H (None) /hpf Acetone, Qual (Negative) - EKG Data -: EKG Interpreted by Me EKG shows normal: sinus rhythm (With occasional PACs), intervals (Normal), QRS complexes (Normal), ST-T waves (T inversions in the leads V2 through V5 as well as 1 and aVL.) Rate: normal (Rate approximately 88 bpm) When compared to previous EKG there are: other (Patient has a previous T inversions from the comparison EKG 1 year ago.) Disposition
[2017-01-04 01:28] LABS: Partial Thromboplastin Time 22.5 sec (22.0-30.0); Prothrombin Time 10.4 sec (9.0-12.0)
[2017-01-04 01:31] LABS: Basophils # (A) 0.1 k/uL (0-0.2); Basophils % (A) 1 %; CH 33.2; CHCM 35.9; Eosinophils # (A) 0.2 k/uL (0-0.7); Eosinophils % (A) 1 %; HCT 44.6 % (39.0-53.0); HDW 2.59; HGB 15.5 gm/dL (13.0-17.5); Luc # (Auto) 0.14; Luc % (Auto) 1; Lymphocytes # (A) 2.5 k/uL (1.0-4.8); Lymphocytes % (A) 19 %; MCH 32.3 pg (25.0-35.0); MCHC 34.7 g/dL (31.0-37.0); Mean Platelet Volume 8.9; Monocytes % (A) 8 %; Neutrophils # (A) 9.5 k/uL (1.3-7.7); Neutrophils % (A) 71 %; RDW 12.9 % (11.5-15.5); WBC 13.4 k/uL (3.8-10.6); WBC (Perox) 12.53
[2017-01-04 01:48] LABS: ALT 32 U/L (21-72); AST 20 U/L (17-59); Alkaline Phosphatase 108 U/L (38-126); Anion Gap 10 mmol/L; Blood Urea Nitrogen 26 mg/dL (9-20); Calcium 9.3 mg/dL (8.4-10.2); Carbon Dioxide 26 mmol/L (22-30); Chloride 96 mmol/L (98-107); Glucose 422 mg/dL (74-99); Non-African American GFR(MDRD) >60 (>60 ml/min/1.73 sqM); Potassium 4.6 mmol/L (3.5-5.1); Sodium 132 mmol/L (137-145); Total Bilirubin 0.9 mg/dL (0.2-1.3); Total Protein 6.3 g/dL (6.3-8.2)
--- NOTE | 2017-01-04 01:57 | XR ---
EXAM: XR Chest, 1 View CLINICAL HISTORY: Reason: weakness TECHNIQUE: Frontal view of the chest. COMPARISON: 12/01/15. FINDINGS: Lungs: Mild left basilar opacities, possible atelectasis or infiltrate. Probable chronic lung changes. Pleural space: Questionable trace left pleural effusion. No evidence of pneumothorax. Heart: Likely stable cardiomediastinal silhouette. Mediastinum: See above. Bones/joints: Unremarkable. IMPRESSION: 1. Mild left basilar opacities, possible atelectasis or infiltrate. 2. Questionable trace left pleural effusion.
--- NOTE | 2017-01-04 02:48 | XR ---
EXAM: XR Right Tibia and Fibula, 2 Views CLINICAL HISTORY: Reason: fall TECHNIQUE: Frontal and lateral views of the right tibia and fibula. COMPARISON: No relevant prior studies available. FINDINGS: Bones/joints: No acute fracture. No dislocation. Soft tissues: No radiopaque foreign body. IMPRESSION: No evidence of acute fracture or dislocation.
[2017-01-04] MEDS ORDERED: SODIUM CHLORIDE 0.9% 1,000 ML IV ONE (03:12)
[2017-01-04] MEDS ORDERED: LEVOFLOXACIN 750 MG TAB PO STA (03:14)
[2017-01-04] MEDS ORDERED: INSULIN REGULAR 100 UNIT/ML VIAL SQ STA (03:14)
[2017-01-04 03:47] LABS: Glucose,Whole Blood 354 mg/dL (75-99)
[2017-01-04 04:24] LABS: Glucose,Whole Blood 362 mg/dL (75-99)
[2017-01-04 06:25] LABS: Appearance,Urine Clear (Clear); Bilirubin,Urine Negative (Negative); Glucose,Urine (UA) 4+ (Negative); Ketones,Urine 1+ (Negative); Leukocyte Esterase,Urine Negative (Negative); Mucus,Urine Rare /hpf; Nitrite,Urine Negative (Negative); Particle Count 1154; Protein,Urine 1+ (Negative); RBC,Urine <1 /hpf (0-5); Specific Gravity,Urine 1.028 (1.001-1.035); UA Billing (MACRO vs. MICRO) MICRO; Urobilinogen,Urine <2.0 mg/dL (<2.0); WBC,Urine <1 /hpf (0-5)
[2017-01-04] MEDS ORDERED: PNEUMONIA PROTOCOL UTILIZED 1 EACH MISC PO PRN (06:44)
[2017-01-04 07:56] LABS: Glucose,Whole Blood 262 mg/dL (75-99)
[2017-01-04] MEDS: INSULIN LISPRO (humaLOG) 300 UNIT/3 ML VIAL SQ SCH ×4 (07:57→21:13)
[2017-01-04] MEDS: LINAGLIPTIN 5 MG TABLET PO SCH (07:58)
[2017-01-04] MEDS: LISINOPRIL 20 MG TAB PO SCH (07:58)
[2017-01-04] MEDS: SERTRALINE 25 MG TAB PO SCH (07:58)
[2017-01-04] MEDS: metFORMIN 500 MG TAB PO SCH ×2 (07:58→21:13)
[2017-01-04] MEDS: SODIUM CHLORIDE 0.9% 1,000 ML IV SCH ×2 (08:00→18:09)
[2017-01-04 10:49] LABS: Hemoglobin A1C 12.5 % (4.2-6.1)
--- NOTE | 2017-01-04 12:19 | P.HPIM ---
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 Patient was brought into the hospital by EMS after he slipped out of his recliner chair and was not able to get himself up due to generalized weakness. Patient was found to have an elevated blood sugar of 422. Patient does relate that he is living alone and not taking his medications every day. Patient was also found to have an infiltrate on x-ray and has been started on antibiotics for pneumonia. Patient has been admitted to the [facility] floor. Review of Systems All systems: negative Constitutional: Reports fatigue, Reports weakness, Denies chills, Denies fever Eyes: denies blurred vision, denies pain Ears, nose, mouth and throat: Denies headache, Denies sore throat Cardiovascular: Reports shortness of breath, Denies chest pain Respiratory: Denies cough Gastrointestinal: Denies abdominal pain, Denies diarrhea, Denies nausea, Denies vomiting Musculoskeletal: Denies myalgias Integumentary: Denies pruritus, Denies rash Neurological: Denies numbness, Denies weakness Psychiatric: Denies anxiety, Denies depression Endocrine: Denies fatigue, Denies weight change Past Medical History Past Medical History: Diabetes Mellitus, Hyperlipidemia, Hypertension Additional Past Medical History / Comment(s): Recent "flu", NIDDM type II, aortic aneursym, abdominal hernia, bilateral cataracts History of Any Multi-Drug Resistant Organisms: None Reported Past Surgical History: Tonsillectomy Past Anesthesia/Blood Transfusion Reactions: No Reported Reaction Past Psychological History: Depression Smoking Status: Former smoker Past Alcohol Use History: None Reported Past Drug Use History: None Reported - Past Family History Father Family Medical History: CVA/TIA Son(s) Additional Family Medical History / Comment(s): He has 2 sons. One has coronary artery disease and a stent placed at age 58. He has a second son with hypertension, cholesterol, diabetes. Daughter(s) Additional Family Medical History / Comment(s): He has 3 daughters. Brother(s) Additional Family Medical History / Comment(s): Patient has a total of 6 brothers and one from a myocardial infarction. One at age 84 from a bowel problem but not cancer. Sister(s) Additional Family Medical History / Comment(s): He has 4 sisters. Medications and Allergies Home Medications Medication Instructions Recorded Confirmed Type metFORMIN HCL 1,000 mg PO BID 12/01/15 01/04/17 History Lisinopril [Zestril] 20 mg PO DAILY 12/02/15 01/04/17 History Lactose-Reduced Food [Ensure Plus] 1 can PO BID 01/04/17 01/04/17 History Multivitamins, Thera [Multivitamin 1 tab PO DAILY 01/04/17 01/04/17 History (formulary)] Simvastatin [Zocor] 10 mg PO HS 01/04/17 01/04/17 History Allergies Allergy/AdvReac Type Severity Reaction Status Date / Time strawberry Allergy Unknown Verified 01/04/17 07:16 Physical Exam Vitals: Vital Signs Temp Pulse Resp BP Pulse Ox 01/04/17 06:44 72 137/74 01/04/17 06:42 97.8 F 75 20 110/59 95 01/04/17 04:23 80 20 127/67 93 L 01/04/17 03:54 97.7 F 81 20 141/76 94 L 01/04/17 03:00 76 145/78 93 L 01/04/17 02:00 98.4 F 78 20 149/78 93 L 01/04/17 01:30 76 20 154/74 94 L 01/03/17 23:53 99.3 F 88 20 157/78 91 L Intake and Output 01/03/17 01/04/17 01/04/17 22:59 06:59 14:59 Other: Weight 81.647 kg General appearance: cooperative, disheveled, mild distress, no acute distress - EENT Eyes: abnormal pupil, normal appearance ENT: hard of hearing, no hearing grossly normal, no NA/AT, normal oropharynx, no other, no pharyngeal erythema, no thrush, no tonsillar exudates, no tonsillar swelling Ears: bilateral: normal - Neck Neck: no lymphadenopathy, no normal ROM, no other, rigidity, stridor, thyromegaly Carotids: bilateral: upstroke normal, upstroke delayed Thyroid: bilateral: normal size, enlarged - Respiratory Respiratory: bilateral: CTA, diminished - Cardiovascular Rhythm: regular Heart sounds: normal: S1, S2 Abnormal Heart Sounds: S3 Gallop - Gastrointestinal General gastrointestinal: no absent bowel sounds, no decreased bowel sounds, distended, no hepatomegaly, no hyperactive bowel sounds, normal bowel sounds, no organomegaly, no rigid, no scaphoid, soft, no splenomegaly, no tenderness, no umbilical hernia, no ventral hernia - Integumentary Integumentary: no calor, no cellulitis, cyanotic, decreased turgor, no flushed, no jaundiced, normal, no normal turgor, pale, rash, no ulcer - Neurologic Neurologic: CNII-XII intact - Musculoskeletal Musculoskeletal: gait normal, generalized weakness, strength equal bilaterally - Psychiatric Psychiatric: A&O x's 2, appropriate affect Results CBC & Chem 7: 01/04/17 00:05 01/04/17 00:05 Labs: Abnormal Lab Results - Last 24 Hours (Table) 01/04/17 01/04/17 01/04/17 Range/Units 00:05 00:05 03:44 WBC 13.4 H (3.8-10.6) k/uL Neutrophils # 9.5 H (1.3-7.7) k/uL Sodium 132 L (137-145) mmol/L Chloride 96 L (98-107) mmol/L BUN 26 H (9-20) mg/dL Glucose 422 H (74-99) mg/dL POC Glucose (mg/dL) 354 H (75-99) mg/dL TSH 4.910 H (0.465-4.680) mIU/L Urine Protein (Negative) Urine Glucose (UA) (Negative) Urine Ketones (Negative) Urine Mucus (None) /hpf 01/04/17 01/04/17 01/04/17 Range/Units 04:22 05:34 07:53 WBC (3.8-10.6) k/uL Neutrophils # (1.3-7.7) k/uL Sodium (137-145) mmol/L Chloride (98-107) mmol/L BUN (9-20) mg/dL Glucose (74-99) mg/dL POC Glucose (mg/dL) 362 H 262 H (75-99) mg/dL TSH (0.465-4.680) mIU/L Urine Protein 1+ H (Negative) Urine Glucose (UA) 4+ H (Negative) Urine Ketones 1+ H (Negative) Urine Mucus Rare H (None) /hpf Thrombosis Risk Factor Assmnt - DVT/VTE Prophylaxis DVT/VTE Prophylaxis: Pharmacologic Prophylaxis ordered Assessment and Plan Plan: 1. Hyperosmolar nonketotic hyperglycemia in a patient with history of diabetes mellitus type 2, noncompliant. Patient will be resumed back on metformin 1000 mg twice daily and glimepiride 1 mg daily added. 2. Left-sided pneumonia. Patient started on Levaquin 3. Diabetes mellitus type 2. Continue metformin 1000 mg twice daily and glimepiride 1 mg with breakfast added. 4. Hypertension. Continue lisinopril 20 mg daily. 5. Hyperlipidemia. Continue Zocor 10 mg at bedtime. 6. Recurrent depression. Continue Zoloft 25 mg daily. 7. Gastrointestinal prophylaxis. Pepcid. 8. DVT prophylaxis. Lovenox. Discharge plan: PT, OT ordered. Case management following. Impression and plan of care have been directed as dictated by the signing physician. Mena Gallardo nurse practitioner acting as scribe for signing physician.
[2017-01-04 12:25] LABS: Glucose,Whole Blood 274 mg/dL (75-99)
[2017-01-04] MEDS: GLIMEPIRIDE 1 MG TAB PO SCH (13:30)
[2017-01-04 15:05] VITALS: BMI 28.1
[2017-01-04 16:50] LABS: Glucose,Whole Blood 200 mg/dL (75-99)
[2017-01-04] MEDS ORDERED: TAMSULOSIN 0.4 MG CAP.ER.24H PO SCH (18:30)
[2017-01-04 21:25] LABS: Glucose,Whole Blood 181 mg/dL (75-99)
[2017-01-05] MEDS ORDERED: ACETAMINOPHEN TAB 325 MG TAB PO PRN (03:47)
[2017-01-05] MEDS: SODIUM CHLORIDE 0.9% 1,000 ML IV SCH (04:34)
[2017-01-05 07:14] LABS: Glucose,Whole Blood 286 mg/dL (75-99)
[2017-01-05] MEDS: SERTRALINE 25 MG TAB PO SCH (07:36)
[2017-01-05] MEDS: INSULIN LISPRO (humaLOG) 300 UNIT/3 ML VIAL SQ SCH ×4 (07:36→21:06)
[2017-01-05] MEDS: LINAGLIPTIN 5 MG TABLET PO SCH (07:36)
[2017-01-05] MEDS: metFORMIN 500 MG TAB PO SCH ×2 (07:36→21:06)
[2017-01-05] MEDS: LEVOFLOXACIN 750 MG TAB PO SCH (07:36)
[2017-01-05] MEDS: GLIMEPIRIDE 1 MG TAB PO SCH (07:36)
[2017-01-05] MEDS: LISINOPRIL 20 MG TAB PO SCH (07:38)
[2017-01-05 08:01] LABS: Anion Gap 6 mmol/L; Blood Urea Nitrogen 18 mg/dL (9-20); Calcium 8.4 mg/dL (8.4-10.2); Carbon Dioxide 24 mmol/L (22-30); Chloride 101 mmol/L (98-107); Glucose 262 mg/dL (74-99); Non-African American GFR(MDRD) >60 (>60 ml/min/1.73 sqM); Potassium 4.4 mmol/L (3.5-5.1); Sodium 131 mmol/L (137-145)
[2017-01-05 08:02] LABS: CH 32.8; CHCM 35.4; HDW 2.67; HGB 13.7 gm/dL (13.0-17.5); MCH 31.9 pg (25.0-35.0); MCHC 34.3 g/dL (31.0-37.0); MCV 92.9 fL (80.0-100.0); Mean Platelet Volume 8.3; RBC 4.31 m/uL (4.30-5.90); RDW 12.8 % (11.5-15.5); WBC 15.7 k/uL (3.8-10.6)
[2017-01-05] MEDS ORDERED: GLIMEPIRIDE 1 MG TAB PO STA (10:19)
--- NOTE | 2017-01-05 11:28 | P.PN ---
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 Patient was brought into the hospital by EMS after he slipped out of his recliner chair and was not able to get himself up due to generalized weakness. Patient was found to have an elevated blood sugar of 422. Patient does relate that he is living alone and not taking his medications every day. Patient was also found to have an infiltrate on x-ray and has been started on antibiotics for pneumonia. Patient has been admitted to the [facility] floor. 01/05: Patient denies any new complaints. He remains somewhat confused. He thinks he is safe to go back home. Nursing also states that he was very unsteady on his feet. Physical therapy delayed evaluation due to concern for fracture of the ankle. There is no tenderness in the ankle area and tib-fib x- rays done in the ER were negative for fracture. Patient will be started on levothyroxine. Patient did have Shine removed this morning at 4 AM and has only been dribbling urine since that time. Postvoid residual will be checked and if greater than 250, straight cath. Flomax increased to twice daily. Orthostatic vital signs to be checked. Patient continues to have elevated blood sugars for which limit bribe will be increased to 2 mg twice daily. Case management to follow up regarding discharge plan which patient will need subacute rehab. Objective - Vital Signs Vital signs: Vital Signs Temp 96.8 F L 01/05/17 07:00 Pulse 82 01/05/17 07:00 Resp 18 01/05/17 07:00 BP 118/58 01/05/17 07:00 Pulse Ox 90 L 01/05/17 07:00 Intake & Output 01/04/17 01/05/17 01/05/17 18:59 06:59 18:59 Intake Total 600 Output Total 0 Balance 600 0 Weight 81.647 kg Intake: Oral 600 Output: Post Void Residual 0 Other: Voiding Method Indwelling Catheter Toilet Urinal # Voids 0 # Bowel Movements 0 - Exam General appearance: cooperative, disheveled, mild distress, no acute distress - EENT Eyes: abnormal pupil, normal appearance ENT: hard of hearing, no hearing grossly normal, no NA/AT, normal oropharynx, no other, no pharyngeal erythema, no thrush, no tonsillar exudates, no tonsillar swelling Ears: bilateral: normal - Neck Neck: no lymphadenopathy, no normal ROM, no other, rigidity, stridor, thyromegaly Carotids: bilateral: upstroke normal, upstroke delayed Thyroid: bilateral: normal size, enlarged - Respiratory Respiratory: bilateral: CTA, diminished - Cardiovascular Rhythm: regular Heart sounds: normal: S1, S2 Abnormal Heart Sounds: S3 Gallop - Gastrointestinal General gastrointestinal: no absent bowel sounds, no decreased bowel sounds, distended, no hepatomegaly, no hyperactive bowel sounds, normal bowel sounds, no organomegaly, no rigid, no scaphoid, soft, no splenomegaly, no tenderness, no umbilical hernia, no ventral hernia - Integumentary Integumentary: no calor, no cellulitis, cyanotic, decreased turgor, no flushed, no jaundiced, normal, no normal turgor, pale, rash, no ulcer - Neurologic Neurologic: CNII-XII intact - Musculoskeletal Musculoskeletal: gait normal, generalized weakness, strength equal bilaterally - Psychiatric Psychiatric: A&O x's 2, appropriate affect - Labs CBC & Chem 7: 01/05/17 07:21 01/05/17 07:19 Labs: Abnormal Lab Results - Last 24 Hours (Table) 01/04/17 01/04/17 01/04/17 Range/Units 07:35 12:21 16:48 WBC (3.8-10.6) k/uL Sodium (137-145) mmol/L Glucose (74-99) mg/dL POC Glucose (mg/dL) 274 H 200 H (75-99) mg/dL Hemoglobin A1c 12.5 H (4.2-6.1) % 01/04/17 01/05/17 01/05/17 Range/Units 21:12 07:12 07:19 WBC (3.8-10.6) k/uL Sodium 131 L (137-145) mmol/L Glucose 262 H (74-99) mg/dL POC Glucose (mg/dL) 181 H 286 H (75-99) mg/dL Hemoglobin A1c (4.2-6.1) % 01/05/17 Range/Units 07:21 WBC 15.7 H (3.8-10.6) k/uL Sodium (137-145) mmol/L Glucose (74-99) mg/dL POC Glucose (mg/dL) (75-99) mg/dL Hemoglobin A1c (4.2-6.1) % Assessment and Plan Plan: 1. Hyperosmolar nonketotic hyperglycemia in a patient with history of diabetes mellitus type 2, noncompliant. Patient will be resumed back on metformin 1000 mg twice daily and glimepiride 1 mg daily added. 2. Left-sided pneumonia. Patient started on Levaquin 3. Diabetes mellitus type 2. Continue metformin 1000 mg twice daily and glimepiride 2 mg twice daily. 4. Hypertension. Continue lisinopril 20 mg daily. 5. Hyperlipidemia. Continue Zocor 10 mg at bedtime. 6. Recurrent depression. Continue Zoloft 25 mg daily. 7. Hypothyroidism. Patient started on levothyroxine 25 g daily. 8. Benign prostatic hypertrophy with urinary retention. Check post void residual and straight cath for greater than 250 mL. Flomax increased to twice daily. 9. Gastrointestinal prophylaxis. Pepcid. 10. DVT prophylaxis. Lovenox. Discharge plan: PT, OT ordered. Case management following. Patient will require subacute rehab. Impression and plan of care have been directed as dictated by the signing physician. Mena Gallardo nurse practitioner acting as scribe for signing physician.
[2017-01-05 11:32] LABS: Glucose,Whole Blood 213 mg/dL (75-99)
[2017-01-05 17:12] LABS: Glucose,Whole Blood 199 mg/dL (75-99)
[2017-01-05] MEDS: GLIMEPIRIDE 2 MG TAB PO SCH (17:35)
[2017-01-05] MEDS: TAMSULOSIN 0.4 MG CAP.ER.24H PO SCH (21:06)
[2017-01-05 21:19] LABS: Glucose,Whole Blood 130 mg/dL (75-99)
[2017-01-06] MEDS: LEVOTHYROXINE 25 MCG TAB PO SCH (05:49)
[2017-01-06 06:57] LABS: Glucose,Whole Blood 143 mg/dL (75-99)
[2017-01-06] MEDS: LISINOPRIL 20 MG TAB PO SCH (07:48)
[2017-01-06] MEDS: TAMSULOSIN 0.4 MG CAP.ER.24H PO SCH ×2 (07:48→21:22)
[2017-01-06] MEDS: LEVOFLOXACIN 750 MG TAB PO SCH (07:48)
[2017-01-06] MEDS: SERTRALINE 25 MG TAB PO SCH (07:48)
[2017-01-06] MEDS: GLIMEPIRIDE 2 MG TAB PO SCH ×2 (07:48→17:10)
[2017-01-06] MEDS: metFORMIN 500 MG TAB PO SCH ×2 (07:48→21:22)
[2017-01-06] MEDS: LINAGLIPTIN 5 MG TABLET PO SCH (07:48)
[2017-01-06] MEDS: INSULIN LISPRO (humaLOG) 300 UNIT/3 ML VIAL SQ SCH ×4 (07:48→21:21)
[2017-01-06] MEDS: GLIMEPIRIDE 1 MG TAB PO SCH (07:48)
[2017-01-06 11:53] LABS: Glucose,Whole Blood 179 mg/dL (75-99)
--- NOTE | 2017-01-06 15:12 | P.PN ---
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 Patient was brought into the hospital by EMS after he slipped out of his recliner chair and was not able to get himself up due to generalized weakness. Patient was found to have an elevated blood sugar of 422. Patient does relate that he is living alone and not taking his medications every day. Patient was also found to have an infiltrate on x-ray and has been started on antibiotics for pneumonia. Patient has been admitted to the [facility] floor. 01/05: Patient denies any new complaints. He remains somewhat confused. He thinks he is safe to go back home. Nursing also states that he was very unsteady on his feet. Physical therapy delayed evaluation due to concern for fracture of the ankle. There is no tenderness in the ankle area and tib-fib x- rays done in the ER were negative for fracture. Patient will be started on levothyroxine. Patient did have Shine removed this morning at 4 AM and has only been dribbling urine since that time. Postvoid residual will be checked and if greater than 250, straight cath. Flomax increased to twice daily. Orthostatic vital signs to be checked. Patient continues to have elevated blood sugars for which limit bribe will be increased to 2 mg twice daily. Case management to follow up regarding discharge plan which patient will need subacute rehab. 01/06: Patient is adamant that he wants to go home versus going to subacute rehab. Patient has walked with physical therapy. Patient has had 2 post void residuals which is been good and he has been voiding without difficulty. Anticipate probable discharge tomorrow to home. Objective - Vital Signs Vital signs: Vital Signs Temp 97.7 F 01/06/17 07:00 Pulse 74 01/06/17 07:00 Resp 20 01/06/17 07:00 BP 120/61 01/06/17 07:00 Pulse Ox 92 L 01/06/17 07:00 Intake & Output 01/05/17 01/06/17 01/06/17 18:59 06:59 18:59 Other: Voiding Method Toilet Toilet Toilet Urinal Urinal # Voids 1 1 - Exam General appearance: cooperative, disheveled, mild distress, no acute distress - EENT Eyes: abnormal pupil, normal appearance ENT: hard of hearing, no hearing grossly normal, no NA/AT, normal oropharynx, no other, no pharyngeal erythema, no thrush, no tonsillar exudates, no tonsillar swelling Ears: bilateral: normal - Neck Neck: no lymphadenopathy, no normal ROM, no other, rigidity, stridor, thyromegaly Carotids: bilateral: upstroke normal, upstroke delayed Thyroid: bilateral: normal size, enlarged - Respiratory Respiratory: bilateral: CTA, diminished - Cardiovascular Rhythm: regular Heart sounds: normal: S1, S2 Abnormal Heart Sounds: S3 Gallop - Gastrointestinal General gastrointestinal: no absent bowel sounds, no decreased bowel sounds, distended, no hepatomegaly, no hyperactive bowel sounds, normal bowel sounds, no organomegaly, no rigid, no scaphoid, soft, no splenomegaly, no tenderness, no umbilical hernia, no ventral hernia - Integumentary Integumentary: no calor, no cellulitis, cyanotic, decreased turgor, no flushed, no jaundiced, normal, no normal turgor, pale, rash, no ulcer - Neurologic Neurologic: CNII-XII intact - Musculoskeletal Musculoskeletal: gait normal, generalized weakness, strength equal bilaterally - Psychiatric Psychiatric: A&O x's 2, appropriate affect - Labs CBC & Chem 7: 01/05/17 07:21 01/05/17 07:19 Labs: Abnormal Lab Results - Last 24 Hours (Table) 01/05/17 01/05/17 01/05/17 Range/Units 11:30 17:10 20:54 POC Glucose (mg/dL) 213 H 199 H 130 H (75-99) mg/dL 01/06/17 Range/Units 06:44 POC Glucose (mg/dL) 143 H (75-99) mg/dL Microbiology - Last 24 Hours (Table) 01/04/17 07:35 Blood Culture - Preliminary Blood No Growth after 48 hours 01/04/17 07:54 Blood Culture - Preliminary Blood No Growth after 24 hours Assessment and Plan Plan: 1. Hyperosmolar nonketotic hyperglycemia in a patient with history of diabetes mellitus type 2, noncompliant. Patient will be resumed back on metformin 1000 mg twice daily and glimepiride 1 mg daily added. 2. Left-sided pneumonia. Patient started on Levaquin 3. Diabetes mellitus type 2. Continue metformin 1000 mg twice daily and glimepiride 2 mg twice daily. 4. Hypertension. Continue lisinopril 20 mg daily. 5. Hyperlipidemia. Continue Zocor 10 mg at bedtime. 6. Recurrent depression. Continue Zoloft 25 mg daily. 7. Hypothyroidism. Patient started on levothyroxine 25 g daily. 8. Benign prostatic hypertrophy with urinary retention. Check post void residual and straight cath for greater than 250 mL. Flomax increased to twice daily. 9. Gastrointestinal prophylaxis. Pepcid. 10. DVT prophylaxis. Lovenox. Discharge plan: PT, OT ordered. Case management following. Patient planning to go home. Impression and plan of care have been directed as dictated by the signing physician. Mena Gallardo nurse practitioner acting as scribe for signing physician.
[2017-01-06 17:06] LABS: Glucose,Whole Blood 169 mg/dL (75-99)
[2017-01-06 20:58] LABS: Glucose,Whole Blood 161 mg/dL (75-99)
[2017-01-07] MEDS: LEVOTHYROXINE 25 MCG TAB PO SCH (06:42)
[2017-01-07] MEDS: LEVOFLOXACIN 750 MG TAB PO SCH (06:44)
[2017-01-07 07:11] LABS: Glucose,Whole Blood 157 mg/dL (75-99)
[2017-01-07 07:21] VITALS: BP 119/74; RESP 18; TEMP 96.7
[2017-01-07] MEDS: INSULIN LISPRO (humaLOG) 300 UNIT/3 ML VIAL SQ SCH ×2 (08:10→12:18)
[2017-01-07] MEDS: GLIMEPIRIDE 1 MG TAB PO SCH (08:10)
[2017-01-07] MEDS: GLIMEPIRIDE 2 MG TAB PO SCH (08:10)
[2017-01-07] MEDS: LISINOPRIL 20 MG TAB PO SCH (08:12)
[2017-01-07] MEDS: LINAGLIPTIN 5 MG TABLET PO SCH (08:12)
[2017-01-07] MEDS: metFORMIN 500 MG TAB PO SCH (08:12)
[2017-01-07] MEDS: SERTRALINE 25 MG TAB PO SCH (08:13)
[2017-01-07] MEDS: TAMSULOSIN 0.4 MG CAP.ER.24H PO SCH (08:13)
[2017-01-07 10:03] VITALS: PULSE 86
[2017-01-07 11:57] LABS: Glucose,Whole Blood 173 mg/dL (75-99)
--- NOTE | 2017-01-07 12:52 | P.DS ---
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 Patient was brought into the hospital by EMS after he slipped out of his recliner chair and was not able to get himself up due to generalized weakness. Patient was found to have an elevated blood sugar of 422. Patient does relate that he is living alone and not taking his medications every day. Patient was also found to have an infiltrate on x-ray and has been started on antibiotics for pneumonia. Patient has been admitted to the [facility] floor. 01/05: Patient denies any new complaints. He remains somewhat confused. He thinks he is safe to go back home. Nursing also states that he was very unsteady on his feet. Physical therapy delayed evaluation due to concern for fracture of the ankle. There is no tenderness in the ankle area and tib-fib x- rays done in the ER were negative for fracture. Patient will be started on levothyroxine. Patient did have Shine removed this morning at 4 AM and has only been dribbling urine since that time. Postvoid residual will be checked and if greater than 250, straight cath. Flomax increased to twice daily. Orthostatic vital signs to be checked. Patient continues to have elevated blood sugars for which limit bribe will be increased to 2 mg twice daily. Case management to follow up regarding discharge plan which patient will need subacute rehab. 01/06: Patient is adamant that he wants to go home versus going to subacute rehab. Patient has walked with physical therapy. Patient has had 2 post void residuals which is been good and he has been voiding without difficulty. Anticipate probable discharge tomorrow to home. 01/07: Patient is denying any new complaints. Breathing status is stable. Patient ambulated for us in the room and into the hallway and gait was steady. Patient appears safe to return home. Discharge Diagnoses: 1. Hyperosmolar nonketotic hyperglycemia in a patient with history of diabetes mellitus type 2, noncompliant. 2. Left-sided pneumonia. 3. Diabetes mellitus type 2. 4. Hypertension. 5. Hyperlipidemia. 6. Recurrent depression. 7. Hypothyroidism. 8. Benign prostatic hypertrophy with urinary retention. 9. New diagnosis of hypothyroidism and started on Synthroid. Discharge plan: home with [facility]. Impression and plan of care have been directed as dictated by the signing physician. Mena Gallardo nurse practitioner acting as scribe for signing physician. Patient Condition at Discharge: Good Plan - Discharge Summary New Discharge Prescriptions: New Glimepiride [Amaryl] 2 mg PO AC-BID@0730,1815 #60 tab Levofloxacin [Levaquin] 750 mg PO DAILY@0700 #7 tab Levothyroxine Sodium [Synthroid] 25 mcg PO DAILY@0630 #30 tab Tamsulosin [Flomax] 0.4 mg PO BID #60 cap Continue Lisinopril [Zestril] 20 mg PO DAILY Simvastatin [Zocor] 10 mg PO HS Multivitamins, Thera [Multivitamin (formulary)] 1 tab PO DAILY Lactose-Reduced Food [Ensure Plus] 1 can PO BID Discontinued metFORMIN HCL 1,000 mg PO BID Discharge Medication List Lisinopril [Zestril] 20 mg PO DAILY 12/02/15 [History] Lactose-Reduced Food [Ensure Plus] 1 can PO BID 01/04/17 [History] Multivitamins, Thera [Multivitamin (formulary)] 1 tab PO DAILY 01/04/17 [History ] Simvastatin [Zocor] 10 mg PO HS 01/04/17 [History] Glimepiride [Amaryl] 2 mg PO AC-BID@0730,1815 #60 tab 01/07/17 [Rx] Levofloxacin [Levaquin] 750 mg PO DAILY@0700 #7 tab 01/07/17 [Rx] Levothyroxine Sodium [Synthroid] 25 mcg PO DAILY@0630 #30 tab 01/07/17 [Rx] Tamsulosin [Flomax] 0.4 mg PO BID #60 cap 01/07/17 [Rx] Follow up Appointment(s)/Referral(s): [facility], [NON-STAFF] - Gera Grover DO [Primary Care Provider] - 01/14/17 (Office will call you with appoinment time. ) Patient Instructions/Handouts: Type 2 Diabetes in Adults (DC), Fall Prevention for Older Adults (GEN), Pneumonia (DC) Activity/Diet/Wound Care/Special Instructions: Diabetic, cardiac diet. Fall precautions, ambulate slowly with walker. Rise slowly from seated positions before walking, remove rugs to reduce chances of falling. Limited activity until follow up with primary care doctor. Discharge Disposition: HOME WITH HOME HEALTH SERVICES
== END 2017-01-07 13:36 | disposition home health service (06) | DRG 637 ==
LOC: EC 23:52 → 4MS4W 01-04 06:44
PROVIDERS: ADMIT Family Medicine; ATTEND Family Medicine
DX: E11.65 Type 2 diabetes mellitus with hyperglycemia (principal); J18.9 Pneumonia, unspecified organism; F33.9 Major depressive disorder, recurrent, unspecified; E86.0 Dehydration; E03.9 Hypothyroidism, unspecified; E78.5 Hyperlipidemia, unspecified; I10 Essential (primary) hypertension; N40.1 Benign prostatic hyperplasia with lower urinary tract symptoms; R33.8 Other retention of urine; H26.9 Unspecified cataract; K46.9 Unspecified abdominal hernia without obstruction or gangrene; R26.81 Unsteadiness on feet; I71.4 Abdominal aortic aneurysm, without rupture; Z79.84 Long term (current) use of oral hypoglycemic drugs; Z79.899 Other long term (current) drug therapy; Z87.891 Personal history of nicotine dependence; Z91.19 Patient's noncompliance with other medical treatment and regimen; Z82.49 Family history of ischemic heart disease and other diseases of the circulatory system; W07.XXXA Fall from chair, initial encounter
CPT/HCPCS: 36415; 71010; 80048; 80053; 81001; 82009; 83036; 83605; 83735; 84439; 84443; 84481; 84484; 85025; 85027; 85610; 85730; 87040; 93005; 94760

== ENCOUNTER 2017-01-12 14:47 | Emergency (ER) | payer MEDICARE ==
[2017-01-12 15:10] VITALS: RESP 16
[2017-01-12] MEDS ORDERED: SODIUM CHLORIDE 0.9% 1,000 ML IV ONE ×2 (15:18→16:01)
--- NOTE | 2017-01-12 15:21 | ED ---
Recheck HPI - General Chief Complaint: Recheck/Abnormal Lab/Rx Stated Complaint: High Blood Sugar Time Seen by Provider: 01/12/17 15:04 Source: patient, EMS, RN notes reviewed Mode of arrival: EMS Limitations: no limitations - History of Present Illness Initial Comments: Patient is an 81-year-old male presents to the emergency for evaluation of high blood sugar. Patient history type 2 diabetes. Patient was recently discharged about a week ago due to hyperglycemia and dehydration. Patient's medication was switched from metformin to Amaryl. Patient's family states that patient's sugars have been higher since starting on this new medication. Patient's family states patient has an appointment with his primary care provider on to hopefully switch his medications back to metformin. Patient's family states the patient usually drinks two Ensures per day. Patient decided to drink a third Ensure today and they assume that's why his sugar was so high. Patient's home nurse came to check his blood sugar and it was above 500 so they brought him here. Patient denies headache, dizziness, nausea, vomiting, chest pain, shortness of breath, abdominal pain, trouble urinating, pain or burning during urination, frequency in urination. Patient's family denies any changes in behavior. Patient's family states they're here to get his blood sugar under control. - Related Data Home Medications Medication Instructions Recorded Confirmed Lisinopril [Zestril] 20 mg PO DAILY 12/02/15 01/12/17 Lactose-Reduced Food [Ensure Plus] 1 can PO BID 01/04/17 01/12/17 Multivitamins, Thera [Multivitamin 1 tab PO DAILY 01/04/17 01/12/17 (formulary)] Simvastatin [Zocor] 10 mg PO HS 01/04/17 01/12/17 Previous Rx's Medication Instructions Recorded Glimepiride [Amaryl] 2 mg PO AC-BID@0730,1815 #60 tab 01/07/17 Levofloxacin [Levaquin] 750 mg PO DAILY@0700 #7 tab 01/07/17 Levothyroxine Sodium [Synthroid] 25 mcg PO DAILY@0630 #30 tab 01/07/17 Tamsulosin [Flomax] 0.4 mg PO BID #60 cap 01/07/17 Allergies Allergy/AdvReac Type Severity Reaction Status Date / Time strawberry Allergy Unknown Verified 01/12/17 15:34 Review of Systems ROS Statement: Those systems with pertinent positive or pertinent negative responses have been documented in the HPI. ROS Other: All systems not noted in ROS Statement are negative. Past Medical History Past Medical History: Diabetes Mellitus, Hyperlipidemia, Hypertension Additional Past Medical History / Comment(s): Recent "flu", NIDDM type II, aortic aneursym, abdominal hernia, bilateral cataracts History of Any Multi-Drug Resistant Organisms: None Reported Past Surgical History: Tonsillectomy Past Anesthesia/Blood Transfusion Reactions: No Reported Reaction Past Psychological History: Depression Smoking Status: Former smoker Past Alcohol Use History: None Reported Past Drug Use History: None Reported - Past Family History Father Family Medical History: CVA/TIA Son(s) Additional Family Medical History / Comment(s): He has 2 sons. One has coronary artery disease and a stent placed at age 58. He has a second son with hypertension, cholesterol, diabetes. Daughter(s) Additional Family Medical History / Comment(s): He has 3 daughters. Brother(s) Additional Family Medical History / Comment(s): Patient has a total of 6 brothers and one from a myocardial infarction. One at age 84 from a bowel problem but not cancer. Sister(s) Additional Family Medical History / Comment(s): He has 4 sisters. General Exam - General Exam Comments Initial Comments: Sitting in exam room, no distress. Limitations: no limitations General appearance: alert, in no apparent distress Head exam: Present: atraumatic, normocephalic, normal inspection Eye exam: Present: normal appearance ENT exam: Present: normal exam Neck exam: Present: normal inspection Respiratory exam: Present: normal lung sounds bilaterally. Absent: respiratory distress Cardiovascular Exam: Present: regular rate, normal rhythm, normal heart sounds GI/Abdominal exam: Present: soft, normal bowel sounds. Absent: distended, tenderness, guarding, rebound, rigid Extremities exam: Present: normal inspection Back exam: Present: normal inspection Neurological exam: Present: alert, oriented X3, CN II-XII intact, normal gait Psychiatric exam: Present: normal affect, normal mood Skin exam: Present: warm, dry, intact, normal color. Absent: rash Course Vital Signs 01/12/17 01/12/17 15:05 17:16 Temperature 98.3 F 97 F L Pulse Rate 74 69 Respiratory 16 16 Rate Blood Pressure 156/77 140/79 O2 Sat by Pulse 96 97 Oximetry Medical Decision Making - Medical Decision Making Patient is an 81-year-old male presents to the emergency room for evaluation of hyperglycemia. Patient's glucose level is 378. Other labs show no concerning findings. Acetone negative. Patient given 5 units of insulin and fluids. Patient will be discharged home and advised to continue with his medications until he follows up with his primary care provider on . Patient and family state they understand everything that was discussed with them. Return parameters discussed. Case discussed Dr. Boss. - Lab Data Result diagrams: 01/12/17 15:10 01/12/17 15:10 Lab Results 01/12/17 01/12/17 01/12/17 Range/Units 15:10 15:10 17:19 WBC 9.9 (3.8-10.6) k/uL RBC 4.47 (4.30-5.90) m/uL Hgb 14.7 (13.0-17.5) gm/dL Hct 40.6 (39.0-53.0) % MCV 91.0 (80.0-100.0) fL MCH 33.0 (25.0-35.0) pg MCHC 36.3 (31.0-37.0) g/dL RDW 12.7 (11.5-15.5) % Plt Count 237 (150-450) k/uL Neutrophils % 71 % Lymphocytes % 19 % Monocytes % 6 % Eosinophils % 2 % Basophils % 1 % Neutrophils # 7.1 (1.3-7.7) k/uL Lymphocytes # 1.9 (1.0-4.8) k/uL Monocytes # 0.6 (0-1.0) k/uL Eosinophils # 0.2 (0-0.7) k/uL Basophils # 0.1 (0-0.2) k/uL Sodium 134 L (137-145) mmol/L Potassium 4.9 (3.5-5.1) mmol/L Chloride 99 (98-107) mmol/L Carbon Dioxide 26 (22-30) mmol/L Anion Gap 9 mmol/L BUN 25 H (9-20) mg/dL Creatinine 0.90 (0.66-1.25) mg/dL Est GFR (MDRD) Af Amer >60 (>60 ml/min/1.73 sqM) Est GFR (MDRD) Non-Af >60 (>60 ml/min/1.73 sqM) Glucose 378 H (74-99) mg/dL POC Glucose (mg/dL) 246 H (75-99) mg/dL POC Glu Beater Boss ID Dave Omalley Calcium 9.1 (8.4-10.2) mg/dL Magnesium 1.6 (1.6-2.3) mg/dL Total Bilirubin 0.5 (0.2-1.3) mg/dL AST 25 (17-59) U/L ALT 25 (21-72) U/L Alkaline Phosphatase 84 (38-126) U/L Total Protein 6.1 L (6.3-8.2) g/dL Albumin 3.5 (3.5-5.0) g/dL Amylase 44 (30-110) U/L Lipase 141 (23-300) U/L Acetone, Qual Negative (Negative) Disposition Clinical Impression: Hyperglycemia Disposition: HOME SELF-CARE Condition: Good Instructions: Diabetic Hyperglycemia (ED) Additional Instructions: Drink plenty of water. Continue taking medications as directed. Please follow up with primary care provider in 1-2 days. If any new symptom arises or symptoms worsen, return to ER as soon as possible. Referrals: Gera Grover DO [Primary Care Provider] - 1-2 days Time of Disposition: 16:45
[2017-01-12 15:31] LABS: Basophils # (A) 0.1 k/uL (0-0.2); Basophils % (A) 1 %; CH 32.4; CHCM 35.8; Eosinophils # (A) 0.2 k/uL (0-0.7); Eosinophils % (A) 2 %; HCT 40.6 % (39.0-53.0); HDW 2.75; HGB 14.7 gm/dL (13.0-17.5); Luc # (Auto) 0.11; Luc % (Auto) 1; Lymphocytes # (A) 1.9 k/uL (1.0-4.8); Lymphocytes % (A) 19 %; MCHC 36.3 g/dL (31.0-37.0); Monocytes # (A) 0.6 k/uL (0-1.0); Monocytes % (A) 6 %; Neutrophils # (A) 7.1 k/uL (1.3-7.7); Neutrophils % (A) 71 %; RBC 4.47 m/uL (4.30-5.90); RDW 12.7 % (11.5-15.5); WBC 9.9 k/uL (3.8-10.6); WBC (Perox) 9.19
[2017-01-12 15:50] LABS: ALT 25 U/L (21-72); AST 25 U/L (17-59); Alkaline Phosphatase 84 U/L (38-126); Amylase 44 U/L (30-110); Anion Gap 9 mmol/L; Blood Urea Nitrogen 25 mg/dL (9-20); Calcium 9.1 mg/dL (8.4-10.2); Carbon Dioxide 26 mmol/L (22-30); Chloride 99 mmol/L (98-107); Glucose 378 mg/dL (74-99); Magnesium 1.6 mg/dL (1.6-2.3); Non-African American GFR(MDRD) >60 (>60 ml/min/1.73 sqM); Potassium 4.9 mmol/L (3.5-5.1); Sodium 134 mmol/L (137-145); Total Bilirubin 0.5 mg/dL (0.2-1.3); Total Protein 6.1 g/dL (6.3-8.2)
[2017-01-12] MEDS ORDERED: INSULIN REGULAR 100 UNIT/ML VIAL SQ STA ×2 (16:01→16:08)
[2017-01-12 17:18] VITALS: BP 140/79; PULSE 69; TEMP 97
[2017-01-12 17:22] LABS: Glucose,Whole Blood 246 mg/dL (75-99)
[2017-01-13 07:57] LABS: Glucose,Whole Blood 371 mg/dL (75-99)
== END 2017-01-12 17:29 | disposition home or self-care (01) ==
LOC: EC 14:47
DX: E11.65 Type 2 diabetes mellitus with hyperglycemia (principal); E78.5 Hyperlipidemia, unspecified; I10 Essential (primary) hypertension; Z87.891 Personal history of nicotine dependence; Z79.899 Other long term (current) drug therapy; Z91.018 Allergy to other foods; Z83.3 Family history of diabetes mellitus
CPT/HCPCS: 36415; 80053; 82009; 82150; 83690; 83735; 85025; 96360; 96361; 99285

== ENCOUNTER 2017-02-08 08:52 | Emergency (ER) | payer MEDICARE ==
[2017-02-08 08:58] VITALS: RESP 18
[2017-02-08] MEDS ORDERED: SODIUM CHLORIDE 0.9% 500 ML IV STA (09:05)
[2017-02-08] MEDS ORDERED: LORazepam 2 MG/ML SYRINGE IV STA (09:06)
[2017-02-08] MEDS ORDERED: LISINOPRIL 20 MG TAB PO STA (09:14)
--- NOTE | 2017-02-08 09:14 | ED ---
Headache HPI - General Chief Complaint: Headache Stated Complaint: Headache Time Seen by Provider: 02/08/17 08:56 Source: patient, EMS, RN notes reviewed, old records reviewed Mode of arrival: EMS Limitations: no limitations - History of Present Illness Initial Comments: This an 81-year-old male presents emergency Department with chief complaint headache. Patient is brought to emergency department via EMS. Patient states she woke morning had posterior headache. Patient has been admitted to the hospital before for intractable headaches. He states his headache that seems similar but he states he just does not feel well. Patient is very tearful the room but admits to having some grief and depression from the loss of his recently. Patient has been evaluated by psychiatric services in the past for this. Patient states he was given medications by EMS which headache has essentially improved. Patient denies any chest pain or increased shortness of breath. He states he does have some baseline shortness of breath. He did admit to a cough. Denies any neck pain or neck stiffness. Denies any focal weakness. Patient states she just feels rundown. - Related Data Home Medications Medication Instructions Recorded Confirmed Lisinopril [Zestril] 20 mg PO DAILY 12/02/15 01/12/17 Lactose-Reduced Food [Ensure Plus] 1 can PO BID 01/04/17 01/12/17 Multivitamins, Thera [Multivitamin 1 tab PO DAILY 01/04/17 01/12/17 (formulary)] Simvastatin [Zocor] 10 mg PO HS 01/04/17 01/12/17 Previous Rx's Medication Instructions Recorded Glimepiride [Amaryl] 2 mg PO AC-BID@0730,1815 #60 tab 01/07/17 Levofloxacin [Levaquin] 750 mg PO DAILY@0700 #7 tab 01/07/17 Levothyroxine Sodium [Synthroid] 25 mcg PO DAILY@0630 #30 tab 01/07/17 Tamsulosin [Flomax] 0.4 mg PO BID #60 cap 01/07/17 Allergies Allergy/AdvReac Type Severity Reaction Status Date / Time strawberry Allergy Unknown Verified 02/08/17 08:58 Review of Systems ROS Statement: Those systems with pertinent positive or pertinent negative responses have been documented in the HPI. ROS Other: All systems not noted in ROS Statement are negative. Past Medical History Past Medical History: Diabetes Mellitus, Hyperlipidemia, Hypertension Additional Past Medical History / Comment(s): Recent "flu", NIDDM type II, aortic aneursym, abdominal hernia, bilateral cataracts History of Any Multi-Drug Resistant Organisms: None Reported Past Surgical History: Tonsillectomy Past Anesthesia/Blood Transfusion Reactions: No Reported Reaction Past Psychological History: Depression Smoking Status: Former smoker Past Alcohol Use History: None Reported Past Drug Use History: None Reported - Past Family History Father Family Medical History: CVA/TIA Son(s) Additional Family Medical History / Comment(s): He has 2 sons. One has coronary artery disease and a stent placed at age 58. He has a second son with hypertension, cholesterol, diabetes. Daughter(s) Additional Family Medical History / Comment(s): He has 3 daughters. Brother(s) Additional Family Medical History / Comment(s): Patient has a total of 6 brothers and one from a myocardial infarction. One at age 84 from a bowel problem but not cancer. Sister(s) Additional Family Medical History / Comment(s): He has 4 sisters. General Exam Limitations: no limitations General appearance: alert, in no apparent distress Head exam: Present: atraumatic, normocephalic, normal inspection Eye exam: Present: PERRL, EOMI. Absent: normal appearance (lazy eye noted left) , scleral icterus, conjunctival injection, periorbital swelling ENT exam: Present: normal exam, normal oropharynx, mucous membranes moist, TM's normal bilaterally, normal external ear exam Neck exam: Present: normal inspection, full ROM. Absent: tenderness, meningismus, lymphadenopathy Respiratory exam: Present: decreased breath sounds. Absent: respiratory distress, wheezes, rales, rhonchi, stridor Cardiovascular Exam: Present: regular rate, normal rhythm, normal heart sounds. Absent: systolic murmur, diastolic murmur, rubs, gallop, clicks GI/Abdominal exam: Present: soft, normal bowel sounds. Absent: distended, tenderness, guarding, rebound, rigid Extremities exam: Present: normal inspection, full ROM, normal capillary refill. Absent: tenderness, pedal edema, joint swelling, calf tenderness Neurological exam: Present: alert, oriented X3, CN II-XII intact, reflexes normal, other ([id number] intact bilaterally without or shooting). Absent: motor sensory deficit Skin exam: Present: warm, dry, intact, normal color. Absent: rash Course Vital Signs 02/08/17 02/08/17 02/08/17 08:54 09:06 09:54 Temperature 97.7 F Pulse Rate 73 74 77 Respiratory 18 18 18 Rate Blood Pressure 186/94 172/79 122/61 O2 Sat by Pulse 93 L 90 L 91 L Oximetry Medical Decision Making - Medical Decision Making 81-year-old male presented for headache. Patient has been admitted in the past for intractable headaches and migraines. He was evaluated by a neurologist at that time. Patient had a negative workup. Patient's CT, blood work x-ray and EKG within normal limits today. Patient states he feels 100% better at this time, logic exam was repeated and is within normal limits. Patient will be discharged return parameters were discussed.. - Lab Data Result diagrams: 02/08/17 09:15 02/08/17 09:15 Lab Results 02/08/17 02/08/17 02/08/17 Range/Units 09:15 09:15 09:15 WBC 10.0 (3.8-10.6) k/uL RBC 4.82 (4.30-5.90) m/uL Hgb 15.3 (13.0-17.5) gm/dL Hct 45.8 (39.0-53.0) % MCV 95.1 (80.0-100.0) fL MCH 31.7 (25.0-35.0) pg MCHC 33.3 (31.0-37.0) g/dL RDW 13.8 (11.5-15.5) % Plt Count 204 (150-450) k/uL Neutrophils % 68 % Lymphocytes % 21 % Monocytes % 6 % Eosinophils % 2 % Basophils % 1 % Neutrophils # 6.8 (1.3-7.7) k/uL Lymphocytes # 2.1 (1.0-4.8) k/uL Monocytes # 0.6 (0-1.0) k/uL Eosinophils # 0.2 (0-0.7) k/uL Basophils # 0.1 (0-0.2) k/uL Sodium 137 (137-145) mmol/L Potassium 4.7 (3.5-5.1) mmol/L Chloride 102 (98-107) mmol/L Carbon Dioxide 25 (22-30) mmol/L Anion Gap 10 mmol/L BUN 31 H (9-20) mg/dL Creatinine 0.94 (0.66-1.25) mg/dL Est GFR (MDRD) Af Amer >60 (>60 ml/min/1.73 sqM) Est GFR (MDRD) Non-Af >60 (>60 ml/min/1.73 sqM) Glucose 242 H (74-99) mg/dL Calcium 9.2 (8.4-10.2) mg/dL Total Bilirubin 0.6 (0.2-1.3) mg/dL AST 25 (17-59) U/L ALT 28 (21-72) U/L Alkaline Phosphatase 74 (38-126) U/L Troponin I <0.012 (0.000-0.034) ng/mL Total Protein 6.6 (6.3-8.2) g/dL Albumin 3.7 (3.5-5.0) g/dL 02/08/17 10:13 EKG performed at 9:01 normal sinus rhythm rate of 72 SD interval 164 QRS duration 86 QT/QTC 396/433 Disposition Clinical Impression: Migraine Disposition: HOME SELF-CARE Condition: Stable Instructions: Acute Headache (ED) Additional Instructions: Please return to the Emergency Department if symptoms worsen or any other concerns. Referrals: Gera Grover DO [Primary Care Provider] - 1-2 days Time of Disposition: 10:39
[2017-02-08 09:29] LABS: Basophils # (A) 0.1 k/uL (0-0.2); Basophils % (A) 1 %; CH 33.2; CHCM 35.1; Eosinophils # (A) 0.2 k/uL (0-0.7); Eosinophils % (A) 2 %; HCT 45.8 % (39.0-53.0); HDW 2.72; HGB 15.3 gm/dL (13.0-17.5); Luc # (Auto) 0.14; Luc % (Auto) 1; Lymphocytes # (A) 2.1 k/uL (1.0-4.8); Lymphocytes % (A) 21 %; MCH 31.7 pg (25.0-35.0); MCHC 33.3 g/dL (31.0-37.0); MCV 95.1 fL (80.0-100.0); Mean Platelet Volume 8.6; Monocytes # (A) 0.6 k/uL (0-1.0); Monocytes % (A) 6 %; Neutrophils # (A) 6.8 k/uL (1.3-7.7); Neutrophils % (A) 68 %; RBC 4.82 m/uL (4.30-5.90); RDW 13.8 % (11.5-15.5); WBC (Perox) 9.97
[2017-02-08 09:46] LABS: ALT 28 U/L (21-72); AST 25 U/L (17-59); Alkaline Phosphatase 74 U/L (38-126); Anion Gap 10 mmol/L; Blood Urea Nitrogen 31 mg/dL (9-20); Calcium 9.2 mg/dL (8.4-10.2); Carbon Dioxide 25 mmol/L (22-30); Chloride 102 mmol/L (98-107); Glucose 242 mg/dL (74-99); Non-African American GFR(MDRD) >60 (>60 ml/min/1.73 sqM); Sodium 137 mmol/L (137-145); Total Bilirubin 0.6 mg/dL (0.2-1.3); Total Protein 6.6 g/dL (6.3-8.2)
--- NOTE | 2017-02-08 09:50 | XR ---
EXAMINATION TYPE: XR chest 2V DATE OF EXAM: 02/08/2017 COMPARISON: 01/04/2017 TECHNIQUE: PA and lateral views submitted. HISTORY: Pain FINDINGS: Hypertrophic and degenerative changes spine. Heart is mildly prominent. Diffuse osteopenia and arthro tena of the shoulders. Atherosclerotic change aorta. Linear change left lung base. IMPRESSION: 1. Linear changes at the left lung base. Atelectasis favored over infiltrate correlate clinically. 2. Cardiomegaly
[2017-02-08 09:56] LABS: Potassium 4.7 mmol/L (3.5-5.1)
--- NOTE | 2017-02-08 10:02 | CT ---
EXAMINATION TYPE: CT brain wo con DATE OF EXAM: 02/08/2017 COMPARISON: 07/27/2016 HISTORY: Headache CT DLP: 1270.1 mGycm. Automated Exposure Control for Dose Reduction was Utilized. TECHNIQUE: CT scan of the head is performed without contrast. FINDINGS: There is no acute intracranial hemorrhage, mass effect, or midline shift identified. Foca l area of hypoattenuation is seen within the anterior limb of the right internal capsule related to a nd old lacunar injury. There is symmetric prominence of the ventricular system and peripheral sulci c ompatible with age-related atrophy. The globes are intact. Inspissated mucus is present within the s phenoid sinus as well as polypoid mucosal thickening along the medial maxillary sinuses and skin degr ee of mucosal thickening within the ethmoid sinuses. Frontal sinuses are well aerated as are the mast oid air cells. IMPRESSION: 1. No acute intracranial hemorrhage, mass effect, or midline shift is seen. 2. Old lacunar injury of the anterior limb of the internal capsule on the right. 3. Chronic paranasal sinus disease.
[2017-02-08 10:40] VITALS: BP 106/78; PULSE 73; TEMP 98
== END 2017-02-08 10:54 | disposition home or self-care (01) ==
LOC: EC 08:52
DX: G43.909 Migraine, unspecified, not intractable, without status migrainosus (principal); E11.9 Type 2 diabetes mellitus without complications; E78.5 Hyperlipidemia, unspecified; I10 Essential (primary) hypertension; F32.9 Major depressive disorder, single episode, unspecified; Z87.891 Personal history of nicotine dependence; Z79.84 Long term (current) use of oral hypoglycemic drugs; Z79.899 Other long term (current) drug therapy; Z91.018 Allergy to other foods
CPT/HCPCS: 99285 ×2; 96374 ×2; 36415; 93005; 80053; 84484; 85025; 71020; 70450; J2060

== ENCOUNTER 2018-04-23 00:46 | Observation (INO) | payer MEDICARE ==
[2018-04-23] MEDS ORDERED: SODIUM CHLORIDE 0.9% 1,000 ML IV STA (01:45)
--- NOTE | 2018-04-23 02:13 | XR ---
EXAMINATION TYPE: XR chest 2V DATE OF EXAM: 04/23/2018 COMPARISON: 02/08/2017 HISTORY: Weakness TECHNIQUE: Frontal and lateral views of the chest are obtained. FINDINGS: There is no heart failure nor confluent pneumonic infiltrate. Costophrenic angles are chad r. Thoracic aorta is atheromatous. There are chest leads. Bony thorax is intact. IMPRESSION: No active cardiopulmonary disease. No significant change.
[2018-04-23 02:31] LABS: Basophils # (A) 0.1 k/uL (0-0.2); Basophils % (A) 1 %; Eosinophils # (A) 0.9 k/uL (0-0.7); Eosinophils % (A) 6 %; HCT 47.8 % (39.0-53.0); HGB 16.8 gm/dL (13.0-17.5); Lymphocytes # (A) 1.9 k/uL (1.0-4.8); Lymphocytes % (A) 14 %; MCH 32.9 pg (25.0-35.0); MCHC 35.2 g/dL (31.0-37.0); MCV 93.4 fL (80.0-100.0); Mean Platelet Volume 9.5; Monocytes # (A) 0.9 k/uL (0-1.0); Monocytes % (A) 6 %; Neutrophils % (A) 72 %; Platelet Count 237 k/uL (150-450); RBC 5.11 m/uL (4.30-5.90); RDW 12.8 % (11.5-15.5); WBC 13.9 k/uL (3.8-10.6)
[2018-04-23 02:36] LABS: Albumin 3.8 g/dL (3.5-5.0); Calcium 9.9 mg/dL (8.4-10.2); Total Bilirubin 0.6 mg/dL (0.2-1.3); Total Protein 6.8 g/dL (6.3-8.2)
[2018-04-23 02:43] LABS: Partial Thromboplastin Time 22.6 sec (22.0-30.0); Prothrombin Time 9.9 sec (9.0-12.0)
[2018-04-23 02:45] LABS: Potassium 4.5 mmol/L (3.5-5.1)
[2018-04-23 03:10] LABS: Creatine Kinase 50 U/L (55-170)
[2018-04-23] MEDS ORDERED: LIDOCAINE URO-JET JELLY 2% 5 ML KIT URETHRAL ONE (03:19)
[2018-04-23 03:24] LABS: Creatine Kinase MB 1.6 ng/mL (0.0-2.4)
[2018-04-23 03:25] LABS: Troponin I <0.012 ng/mL (0.000-0.034)
[2018-04-23 03:56] LABS: Appearance,Urine Clear (Clear); Bacteria,Urine Rare /hpf; Bilirubin,Urine Negative (Negative); Blood,Urine Trace (Negative); Cellular Casts,Urine 1 /lpf (0); Color,Urine Yellow; Glucose,Urine (UA) 4+ (Negative); Granular Casts,Urine 1 /lpf (0); Hyaline Casts,Urine 13 /lpf (0-2); Ketones,Urine Negative (Negative); Leukocyte Esterase,Urine Negative (Negative); Mucus,Urine Rare /hpf; Nitrite,Urine Negative (Negative); Protein,Urine 1+ (Negative); RBC,Urine 7 /hpf (0-5); Specific Gravity,Urine 1.023 (1.001-1.035); Urobilinogen,Urine <2.0 mg/dL (<2.0); WBC,Urine 2 /hpf (0-5)
--- NOTE | 2018-04-23 04:04 | ED ---
General Adult HPI - General Source: patient Mode of arrival: EMS Limitations: altered mental status, physical limitation <Daxa Finn - Last Filed: 04/23/18 04:20> <Kiki Sosa - Last Filed: 04/23/18 06:21> - General Chief complaint: Fall Stated complaint: Weakness Time Seen by Provider: 04/23/18 00:52 - History of Present Illness Initial comments: 82-year-old male patient presents to the emergency department today for evaluation of progressive weakness to the lower extremities. Patient states he woke from sleep this morning and was unable to stand on his legs, states he had to crawl out to the main living room area. Patient states that he was able to walk throughout the day however did have 2 falls related to this weakness. Patient states that the weakness got so bad again this evening that he had to crawl to answer the phone. Patient states he had a signal to his neighbor with the lights for help and ended up calling the ambulance for him. Patient denies any headache, dizziness, blurred vision, double vision, chest pain, shortness of breath, abdominal pain, nausea, or vomiting. Patient states he feels well other than his legs could not hold him up. He denies having more weakness on one side than the other. Denies any numbness or tingling to the extremities. Denies any hematuria, dysuria, urinary frequency, urinary urgency. Patient denies any recent rash, fever, chills, abdominal pain, nausea, vomiting, diarrhea, constipation, back pain, or any other complaints. (Daxa Finn) - Related Data Home Medications Medication Instructions Recorded Confirmed Lisinopril [Zestril] 20 mg PO DAILY 12/02/15 04/23/18 Simvastatin [Zocor] 10 mg PO HS 01/04/17 04/23/18 Glimepiride [Amaryl] 2 mg PO HS 04/23/18 04/23/18 sitaGLIPtin PHOS/metFORMIN HCL 1 tab PO DAILY 04/23/18 04/23/18 [Janumet 50-1,000 mg Tablet] Allergies Allergy/AdvReac Type Severity Reaction Status Date / Time strawberry Allergy Unknown Verified 04/23/18 04:57 Review of Systems ROS Other: All systems not noted in ROS Statement are negative. <Daxa Finn - Last Filed: 04/23/18 04:20> ROS Other: All systems not noted in ROS Statement are negative. <SosaKiki P - Last Filed: 04/23/18 06:21> ROS Statement: Those systems with pertinent positive or pertinent negative responses have been documented in the HPI. Past Medical History Past Medical History: Diabetes Mellitus, Hyperlipidemia, Hypertension Additional Past Medical History / Comment(s): NIDDM type II, aortic aneursym, abdominal hernia, bilateral cataracts History of Any Multi-Drug Resistant Organisms: None Reported Past Surgical History: Tonsillectomy Past Anesthesia/Blood Transfusion Reactions: No Reported Reaction Past Psychological History: Depression Smoking Status: Former smoker Past Alcohol Use History: None Reported Past Drug Use History: None Reported - Past Family History Father Family Medical History: CVA/TIA Son(s) Additional Family Medical History / Comment(s): He has 2 sons. One has coronary artery disease and a stent placed at age 58. He has a second son with hypertension, cholesterol, diabetes. Daughter(s) Additional Family Medical History / Comment(s): He has 3 daughters. Brother(s) Additional Family Medical History / Comment(s): Patient has a total of 6 brothers and one from a myocardial infarction. One at age 84 from a bowel problem but not cancer. Sister(s) Additional Family Medical History / Comment(s): He has 4 sisters. <RatnazaheerDaxa M - Last Filed: 04/23/18 04:20> General Exam Limitations: altered mental status, physical limitation General appearance: alert, in no apparent distress, other (This is a well- developed, well-nourished elderly male patient in no acute distress. Vital signs upon presentation are temperature 97.9F, pulse 82, respirations 18, blood pressure 131/62, pulse ox 94% on room air.) Eye exam: Present: normal appearance, PERRL, EOMI. Absent: scleral icterus, conjunctival injection, nystagmus, periorbital swelling ENT exam: Present: normal exam, normal oropharynx, mucous membranes moist Neck exam: Present: normal inspection, full ROM, other (Nontender, no step-off, no deformity to firm midline palpation of the posterior cervical spine. Full range of motion without pain or limitation.). Absent: tenderness, meningismus, lymphadenopathy Respiratory exam: Present: normal lung sounds bilaterally. Absent: respiratory distress, wheezes, rales, rhonchi, stridor Cardiovascular Exam: Present: regular rate, normal rhythm, normal heart sounds. Absent: systolic murmur, diastolic murmur, rubs, gallop, clicks GI/Abdominal exam: Present: soft, normal bowel sounds. Absent: distended, tenderness, guarding, rebound, rigid Back exam: Present: normal inspection, other (Nontender, no step-off, no deformity to firm midline palpation of the thoracic and lumbar vertebrae. Full range of motion without pain or limitation.). Absent: vertebral tenderness Neurological exam: Present: alert, oriented X3, CN II-XII intact Expanded Patient oriented to: Present: person, place, time Speech: Present: fluid speech Cranial nerves: EOM's Intact: Normal Motor strength exam: RUE: 4, LUE: 4, RLE: 3, LLE: 3 Psychiatric exam: Present: normal affect, normal mood Skin exam: Present: warm, dry, intact, normal color. Absent: rash <Daxa Finn - Last Filed: 04/23/18 04:20> Vital Signs 04/23/18 04/23/18 04/23/18 00:50 01:00 01:30 Temperature 97.9 F Pulse Rate 82 84 90 Respiratory 18 17 18 Rate Blood Pressure 131/62 131/62 128/73 O2 Sat by Pulse 94 L 94 L 94 L Oximetry 04/23/18 04/23/18 04/23/18 02:00 04:00 04:32 Temperature 97.6 F Pulse Rate 71 68 Respiratory 18 16 Rate Blood Pressure 139/77 147/84 120/69 O2 Sat by Pulse 96 95 Oximetry EKG Findings - EKG Comments: EKG Findings:: EKG obtained at 00 59 shows normal sinus rhythm with a ventricular rate of 83, WA interval 156, QRS duration 84, QT 340, QTC 399. No evidence of ST elevation or depression. <Daxa Finn - Last Filed: 04/23/18 04:20> Medical Decision Making - Lab Data Result diagrams: 04/23/18 01:10 04/23/18 01:10 - Radiology Data Radiology results: report reviewed, image reviewed <Daxa Finn Last Filed: 04/23/18 04:20> - Lab Data Result diagrams: 04/23/18 01:10 04/23/18 01:10 <Kiki Sosa - Last Filed: 04/23/18 06:21> - Medical Decision Making 82-year-old male patient presents to the emergency department today for evaluation of progressive leg weakness. Patient did have 2 falls today related to the weakness. He denies hitting his head or losing consciousness. Denies any neck or back pain. Denies any injuries from the falls. Labs reviewed and did reveal an elevated white blood cell count at 13.9. Elevated BUN which does seem chronic for the patient. He does have diabetes blood sugar was elevated. Daughter reports that he is noncompliant with her diabetes medications. Chest x -ray showed no acute cardiopulmonary process. Urinalysis negative for any evidence of infection. Did attempt to stand patient in the room, his legs were very shaky and weak he is unable to tolerate ambulating. I did discuss the case with my attending Dr. Sosa, we'll admit patient for further evaluation and physical therapy consult. Did discuss findings, results, and plan with patient and family, they are agreeable. (Daxa Finn) I was available for consultation in the emergency department. The history and physical exam were done by the midlevel provider. I was consulted for this patient's care. I reviewed the case with the midlevel provider and based on their presentation of the patient, I agree with the assessment, medical decision making and plan of care as documented. (Kiki Sosa) - Lab Data Lab Results 04/23/18 04/23/18 04/23/18 Range/Units 01:10 01:10 01:10 WBC 13.9 H (3.8-10.6) k/uL RBC 5.11 (4.30-5.90) m/uL Hgb 16.8 (13.0-17.5) gm/dL Hct 47.8 (39.0-53.0) % MCV 93.4 (80.0-100.0) fL MCH 32.9 (25.0-35.0) pg MCHC 35.2 (31.0-37.0) g/dL RDW 12.8 (11.5-15.5) % Plt Count 237 (150-450) k/uL Neutrophils % 72 % Lymphocytes % 14 % Monocytes % 6 % Eosinophils % 6 % Basophils % 1 % Neutrophils # 10.0 H (1.3-7.7) k/uL Lymphocytes # 1.9 (1.0-4.8) k/uL Monocytes # 0.9 (0-1.0) k/uL Eosinophils # 0.9 H (0-0.7) k/uL Basophils # 0.1 (0-0.2) k/uL PT (9.0-12.0) sec INR (<1.2) APTT (22.0-30.0) sec Sodium 133 L (137-145) mmol/L Potassium 4.5 (3.5-5.1) mmol/L Chloride 94 L (98-107) mmol/L Carbon Dioxide 28 (22-30) mmol/L Anion Gap 11 mmol/L BUN 32 H (9-20) mg/dL Creatinine 1.23 (0.66-1.25) mg/dL Est GFR (CKD-EPI)AfAm 62 (>60 ml/min/1.73 sqM) Est GFR (CKD-EPI)NonAf 54 (>60 ml/min/1.73 sqM) Glucose 280 H (74-99) mg/dL Calcium 9.9 (8.4-10.2) mg/dL Total Bilirubin 0.6 (0.2-1.3) mg/dL AST 37 (17-59) U/L ALT 42 (21-72) U/L Alkaline Phosphatase 102 (38-126) U/L Total Creatine Kinase 50 L (55-170) U/L CK-MB (CK-2) 1.6 (0.0-2.4) ng/mL CK-MB (CK-2) Rel Index 3.2 Troponin I <0.012 (0.000-0.034) ng/mL Total Protein 6.8 (6.3-8.2) g/dL Albumin 3.8 (3.5-5.0) g/dL Urine Color Urine Appearance (Clear) Urine pH (5.0-8.0) Ur Specific [place] (1.001-1.035) Urine Protein (Negative) Urine Glucose (UA) (Negative) Urine Ketones (Negative) Urine Blood (Negative) Urine Nitrite (Negative) Urine Bilirubin (Negative) Urine Urobilinogen (<2.0) mg/dL Ur Leukocyte Esterase (Negative) Urine RBC (0-5) /hpf Urine WBC (0-5) /hpf Urine Bacteria (None) /hpf Cellular Casts (0) /lpf Hyaline Casts (0-2) /lpf Granular Casts (0) /lpf Urine Mucus (None) /hpf 04/23/18 04/23/18 Range/Units 01:10 03:40 WBC (3.8-10.6) k/uL RBC (4.30-5.90) m/uL Hgb (13.0-17.5) gm/dL Hct (39.0-53.0) % MCV (80.0-100.0) fL MCH (25.0-35.0) pg MCHC (31.0-37.0) g/dL RDW (11.5-15.5) % Plt Count (150-450) k/uL Neutrophils % % Lymphocytes % % Monocytes % % Eosinophils % % Basophils % % Neutrophils # (1.3-7.7) k/uL Lymphocytes # (1.0-4.8) k/uL Monocytes # (0-1.0) k/uL Eosinophils # (0-0.7) k/uL Basophils # (0-0.2) k/uL PT 9.9 (9.0-12.0) sec INR 1.0 (<1.2) APTT 22.6 (22.0-30.0) sec Sodium (137-145) mmol/L Potassium (3.5-5.1) mmol/L Chloride (98-107) mmol/L Carbon Dioxide (22-30) mmol/L Anion Gap mmol/L BUN (9-20) mg/dL Creatinine (0.66-1.25) mg/dL Est GFR (CKD-EPI)AfAm (>60 ml/min/1.73 sqM) Est GFR (CKD-EPI)NonAf (>60 ml/min/1.73 sqM) Glucose (74-99) mg/dL Calcium (8.4-10.2) mg/dL Total Bilirubin (0.2-1.3) mg/dL AST (17-59) U/L ALT (21-72) U/L Alkaline Phosphatase (38-126) U/L Total Creatine Kinase (55-170) U/L CK-MB (CK-2) (0.0-2.4) ng/mL CK-MB (CK-2) Rel Index Troponin I (0.000-0.034) ng/mL Total Protein (6.3-8.2) g/dL Albumin (3.5-5.0) g/dL Urine Color Yellow Urine Appearance Clear (Clear) Urine pH 5.0 (5.0-8.0) Ur Specific [place] 1.023 (1.001-1.035) Urine Protein 1+ H (Negative) Urine Glucose (UA) 4+ H (Negative) Urine Ketones Negative (Negative) Urine Blood Trace H (Negative) Urine Nitrite Negative (Negative) Urine Bilirubin Negative (Negative) Urine Urobilinogen <2.0 (<2.0) mg/dL Ur Leukocyte Esterase Negative (Negative) Urine RBC 7 H (0-5) /hpf Urine WBC 2 (0-5) /hpf Urine Bacteria Rare H (None) /hpf Cellular Casts 1 (0) /lpf Hyaline Casts 13 H (0-2) /lpf Granular Casts 1 (0) /lpf Urine Mucus Rare H (None) /hpf - Radiology Data Two-view x-ray of the chest is obtained. This no heart failure nor confluent pneumonic infiltrate. Costophrenic angles are clear. Thoracic aorta is atheromatous. There are chest leads. Bony thorax is intact. Impression by Dr. Rosado shows no active cardiopulmonary disease. No significant change. ( Daxa Finn) Disposition Decision to Admit Reason: Admit from EC Decision Date: 04/23/18 Decision Time: 04:22 <Daxa Finn - Last Filed: 04/23/18 04:20> <Kiki Sosa - Last Filed: 04/23/18 06:21> Clinical Impression: Weakness, Gait disturbance Disposition: ADMITTED IP TO THIS [facility] Condition: Serious
[2018-04-23] MEDS ORDERED: NALOXONE 0.4 MG/ML 1 ML VIAL IV PRN (04:15)
[2018-04-23 05:11] VITALS: BMI 27.3
[2018-04-23 07:51] LABS: Glucose,Whole Blood 331 mg/dL (75-99)
[2018-04-23] MEDS: LISINOPRIL 20 MG TAB PO SCH (11:26)
[2018-04-23] MEDS: INSULIN ASPART 100 UNIT/ML 1 ML 10 ML VIAL SQ SCH ×4 (11:26→23:25)
[2018-04-23] MEDS: metFORMIN 500 MG TAB PO SCH (11:27)
[2018-04-23] MEDS: LINAGLIPTIN 5 MG TABLET PO SCH (11:27)
--- NOTE | 2018-04-23 11:46 | P.HPIM ---
History of Present Illness H&P Date: 04/23/18 Chief Complaint: weakness This is 82 years old male who presented to the emergency department with new onset lower extremity weakness. Patient is poor historian but alert and oriented 4 who reported all of a sudden weakness yesterday morning when he was trying to get up from his chair and stated that that never happened to him before patient stated that he is usually independent and ambulating on his own without any difficulty or requiring assistance. Patient reporting walking without cane or walker and stated that he's been in his regular state of health denying any upper respiratory symptoms, productive cough, chest pain, shortness breath, change to bowel regimen, dizziness, lightheadedness, focal weakness, slurred speech, numbness or tingling. A shunt reported increasing in the frequency of urination without dysuria or odor. Patient denied any blood in the urine. In the emergency department multiple attempts to get this person up was done by ER physician and patient was not able to get up on his own and was admitted for further evaluation. Patient reported 2 episodes of fall in the last month related to his generalized weakness. Patient denied any weight loss or any other constitutional symptoms. Patient denied tobacco alcohol or drug abuse and stated that he's been in his regular state of health. Review of Systems All 14 systems reviewed and negative except as above Past Medical History Past Medical History: Diabetes Mellitus, Hyperlipidemia, Hypertension Additional Past Medical History / Comment(s): NIDDM type II, aortic aneursym, abdominal hernia, bilateral cataracts History of Any Multi-Drug Resistant Organisms: None Reported Past Surgical History: Tonsillectomy Past Anesthesia/Blood Transfusion Reactions: No Reported Reaction Past Psychological History: Depression Additional Psychological History / Comment(s): Pt lives alone. He has a daughter who is helpful. He has no home care. He uses a cane prn. He no longer drives. His deneen, Idalia takes him to [employer]. He states he has tried [employer] Wheels in the past-uncertain why he no longer does. States he is unable to cook for himself. He states he is very depressed at times because his spouse October 2015 and he still misses her very much. He states he is not suicidal. He has a glucometer. No steps in house. Smoking Status: Former smoker Past Alcohol Use History: None Reported Additional Past Alcohol Use History / Comment(s): Pt states he started smoking in 1949 and quit in 2008. Past Drug Use History: None Reported - Past Family History Father Family Medical History: CVA/TIA Son(s) Additional Family Medical History / Comment(s): He has 2 sons. One has coronary artery disease and a stent placed at age 58. He has a second son with hypertension, cholesterol, diabetes. Daughter(s) Additional Family Medical History / Comment(s): He has 3 daughters. Brother(s) Additional Family Medical History / Comment(s): Patient has a total of 6 brothers and one from a myocardial infarction. One at age 84 from a bowel problem but not cancer. Sister(s) Additional Family Medical History / Comment(s): He has 4 sisters. Medications and Allergies Home Medications Medication Instructions Recorded Confirmed Type Lisinopril [Zestril] 20 mg PO DAILY 12/02/15 04/23/18 History Simvastatin [Zocor] 10 mg PO HS 01/04/17 04/23/18 History Glimepiride [Amaryl] 2 mg PO HS 04/23/18 04/23/18 History sitaGLIPtin PHOS/metFORMIN HCL 1 tab PO DAILY 04/23/18 04/23/18 History [Janumet 50-1,000 mg Tablet] Allergies Allergy/AdvReac Type Severity Reaction Status Date / Time strawberry Allergy Unknown Verified 04/23/18 04:57 Physical Exam Vitals: Vital Signs Temp Pulse Pulse Resp BP BP Pulse Ox 04/23/18 07:00 98.4 F 89 18 134/62 98 04/23/18 04:55 98.5 F 68 14 127/58 94 L 04/23/18 04:32 97.6 F 68 16 120/69 95 04/23/18 04:00 71 18 147/84 96 04/23/18 02:00 139/77 04/23/18 01:30 90 18 128/73 94 L 04/23/18 01:00 84 17 131/62 94 L 04/23/18 00:50 97.9 F 82 18 131/62 94 L Intake and Output 04/22/18 04/23/18 04/23/18 22:59 06:59 14:59 Intake Total 100 Balance 100 Intake: Oral 100 Other: Voiding Method Urinal # Voids 0 Weight 79.379 kg Gen.: in stated age, no acute distress Heart: Normal S1-S2 Lungs: Clear to auscultation bilaterally Abdomen: Soft, no tenderness, positive bowel sounds in all 4 quadrant no guarding or rebound Skin: No new rash Psych: Alert and oriented 3 Neuro: No focal deficit. Strength of intact and equal in all 4 extremities. Unable to get patient's up on his own or with 1 person assist due to lower extremity weakness Results CBC & Chem 7: 04/23/18 01:10 04/23/18 01:10 Labs: Abnormal Lab Results - Last 24 Hours (Table) 04/23/18 04/23/18 04/23/18 Range/Units 01:10 01:10 01:10 WBC 13.9 H (3.8-10.6) k/uL Neutrophils # 10.0 H (1.3-7.7) k/uL Eosinophils # 0.9 H (0-0.7) k/uL Sodium 133 L (137-145) mmol/L Chloride 94 L (98-107) mmol/L BUN 32 H (9-20) mg/dL Glucose 280 H (74-99) mg/dL POC Glucose (mg/dL) (75-99) mg/dL Total Creatine Kinase 50 L (55-170) U/L Urine Protein (Negative) Urine Glucose (UA) (Negative) Urine Blood (Negative) Urine RBC (0-5) /hpf Urine Bacteria (None) /hpf Hyaline Casts (0-2) /lpf Urine Mucus (None) /hpf 04/23/18 04/23/18 Range/Units 03:40 07:50 WBC (3.8-10.6) k/uL Neutrophils # (1.3-7.7) k/uL Eosinophils # (0-0.7) k/uL Sodium (137-145) mmol/L Chloride (98-107) mmol/L BUN (9-20) mg/dL Glucose (74-99) mg/dL POC Glucose (mg/dL) 331 H (75-99) mg/dL Total Creatine Kinase (55-170) U/L Urine Protein 1+ H (Negative) Urine Glucose (UA) 4+ H (Negative) Urine Blood Trace H (Negative) Urine RBC 7 H (0-5) /hpf Urine Bacteria Rare H (None) /hpf Hyaline Casts 13 H (0-2) /lpf Urine Mucus Rare H (None) /hpf Thrombosis Risk Factor Assmnt - Choose All That Apply Any of the Below Risk Factors Present?: Yes Each Factor Represents 1 point: Obesity (BMI >25) Other Risk Factors: Yes Each Risk Factor Represents 2 Points: Age 61-74 years Other congenital or acquired thrombophilia - If yes, enter type in comment: No Thrombosis Risk Factor Assessment Total Risk Factor Score: 3 Thrombosis Risk Factor Assessment Level: Moderate Risk Assessment and Plan Assessment: 1. Generalized weakness with recurrent falls. 2. Urinary tract infection. 3. Leukocytosis. 4. Mild hyponatremia. 5. Uncontrolled diabetes mellitus type 2 [id number]. 6. Hypertension. 7. Hyperlipidemia. 8. Forgetfulness. I have discussed the plan with patient at length what I would like to obtain computed tomography scan of the head without contrast, MRI of the lumbar sacral area, check on his vitamins level and TSH, repeat blood work in the morning, treat for possible underlying urinary tract infection with Rocephin, start patients on DVT prophylaxis, consult physical and acute patient will therapy, resume his home medication with holding parameters, lace patient's on insulin sliding scale during this hospital stay, I have attempted to call his daughter care all at [phone] without called back and we will repeat attempt calling her again in the morning. We'll consult neurology and follow-up with the recommendation . Code is full at this point.
[2018-04-23 12:10] LABS: Glucose,Whole Blood 296 mg/dL (75-99)
--- NOTE | 2018-04-23 14:36 | CT ---
EXAMINATION TYPE: CT brain wo con DATE OF EXAM: 04/23/2018 COMPARISON: 02/08/2017 HISTORY: 82-year-old male Weakness, abnormal gait TECHNIQUE: Examination was done in axial plane without intravenous contrast. Coronal and sagittal r econstructions performed. CT DLP: 1017.9 mGycm Automated exposure control for dose reduction was used. FINDINGS: There is no evidence of acute intracranial hemorrhage, acute ischemic changes, mass, mass-effect, or extra-axial fluid collection. There is no effacement of cerebral sulci or basal subarachnoid cister ns. There is no midline shift. Kaur-white matter distinction is preserved. Redemonstrated tiny lacunar infarct posterior right basal ganglia. There is central atrophy with seco ndary ventriculomegaly unchanged from prior Markedly divergent gaze suggesting underlying strabismus. This was also present on the patient's prio r. Mild mucosal thickening left maxillary sinus. Mastoid air cells well pneumatized. 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 No acute intr acranial abnormality seen. Patient's gaze remains markedly divergent suggesting underlying strabismus .
[2018-04-23] MEDS: HEPARIN SODIUM,PORCINE 5,000 UNIT/ML 1 ML VIAL SQ SCH ×2 (15:18→23:25)
[2018-04-23 16:40] LABS: Glucose,Whole Blood 276 mg/dL (75-99)
--- NOTE | 2018-04-23 16:44 | MR ---
EXAMINATION TYPE: MR lumbar spine wo con DATE OF EXAM: 04/23/2018 COMPARISON: None HISTORY: 82-year-old male with lower extremity weakness TECHNIQUE: Multiplanar, multisequence images of the lumbar spine were acquired. Findings: Vertebral body heights are preserved and alignment is maintained. Anterior endplate spondylosis throughout with variable mild to moderate intervertebral disc desiccati on. Mild disc interspace narrowing at L5-S1. Bulging disks at multiple levels. Alignment is maintained. Vertebral body heights are preserved. No suspicious bone marrow replacement. Conus medullaris is normal. At T12-L1, minimal bulging disc without canal or foraminal stenosis. L1-L2, no canal or foraminal stenosis. L2-L3, no canal or foraminal stenosis. At L3-L4, there is bulging disc and mild facet arthropathy and ligamentum flavum thickening. No spina l canal stenosis. Disc material closely approaches and may abut the bilateral traversing L4 nerve cassie ts. There is minimal bilateral inferior neuroforaminal narrowing. At L4-L5, there is bulging disc and facet arthropathy. Disc material closely approaches and may abut the traversing left L5 nerve root. No spinal canal stenosis. No neuroforaminal stenosis. At L5-S1, there is central disc protrusion and facet arthropathy. Ligamentum flavum thickening. No sp inal canal stenosis. It is noted moderate bilateral neuroforaminal stenoses. No prevertebral or paravertebral soft tissue abnormality seen. IMPRESSION: 1. Moderate multilevel degenerative disc disease. Additional scattered ligamentum flavum thickening a nd facet arthropathy. 2. No vertebral compression collapse or malalignment. No spinal canal stenosis. 3. At L3-L4, bulging disc closely approaches and may abut the bilateral traversing L4 nerve roots. 4. At L4-L5, disc material closely approaches and may abut the traversing left L5 nerve root. 5. At L5-S1, changes result in moderate bilateral neuroforaminal stenoses.
[2018-04-23 20:41] LABS: Glucose,Whole Blood 231 mg/dL (75-99)
[2018-04-23] MEDS: ATORVASTATIN 10 MG TAB PO SCH (23:24)
[2018-04-23] MEDS: GLIMEPIRIDE 2 MG TAB PO SCH (23:24)
[2018-04-24 07:34] LABS: Glucose,Whole Blood 187 mg/dL (75-99)
[2018-04-24] MEDS: INSULIN ASPART 100 UNIT/ML 1 ML 10 ML VIAL SQ SCH ×4 (09:03→23:19)
[2018-04-24] MEDS: metFORMIN 500 MG TAB PO SCH (09:04)
[2018-04-24] MEDS: LISINOPRIL 20 MG TAB PO SCH (09:04)
[2018-04-24] MEDS: HEPARIN SODIUM,PORCINE 5,000 UNIT/ML 1 ML VIAL SQ SCH ×3 (09:04→23:19)
[2018-04-24] MEDS: LINAGLIPTIN 5 MG TABLET PO SCH (09:04)
[2018-04-24 11:39] LABS: Glucose,Whole Blood 314 mg/dL (75-99)
--- NOTE | 2018-04-24 17:01 | P.PN ---
Subjective Progress Note Date: 04/24/18 Principal diagnosis: Bilateral lower extremity weakness Patient has been in bed since yesterday, has been delirious overnight but seems to be improved this morning and back at baseline. Patient stated that he has not tried to get out of bed and still feeding weak in his lower extremity but his neuro exam revealed stable finding Objective - Vital Signs Vital signs: Vital Signs Temp 97.8 F 04/24/18 15:00 Pulse 73 04/24/18 15:00 Resp 18 04/24/18 15:00 BP 102/64 04/24/18 15:00 Pulse Ox 94 L 04/24/18 15:00 Intake & Output 04/23/18 04/24/18 04/24/18 18:59 06:59 18:59 Intake Total 930 50 Balance 930 50 Intake: Intake, IV Titration 50 50 Amount cefTRIAXone 1,000 mg In 50 50 Sodium Chloride 0.9% 50 ml @ 100 mls/hr IVPB Q12HR [facility] Rx#:[id number] Oral 400 Other 480 Other: Voiding Method Urinal # Voids 1 1 1 # Bowel Movements 1 - Exam Lungs : Clear to auscultation bilaterally Heart: Normal S1 and S2 Abdomen: Soft, no tenderness, positive bowel sounds in all 4 quadrants Skin: No new rash Psych: Alert and oriented at baseline mental status Neuro exam stable from plan examination - Labs CBC & Chem 7: 04/23/18 01:10 04/23/18 01:10 Labs: Abnormal Lab Results - Last 24 Hours (Table) 04/23/18 04/24/18 04/24/18 Range/Units 20:29 07:21 11:38 POC Glucose (mg/dL) 231 H 187 H 314 H (75-99) mg/dL Assessment and Plan Assessment: 1. Generalized weakness with recurrent falls. 2. Urinary tract infection. 3. Leukocytosis. 4. Mild hyponatremia. 5. Uncontrolled diabetes mellitus type 2 [id number]. 6. Hypertension. 7. Hyperlipidemia. 8. Forgetfulness. I have reviewed CT scan of the head and MRI of the lumbar sacral area and etiology could be related to hydrocephalus complicated with multiple degenerative changes on the lumbar sacral area evidenced by nerve root compression which seems to be not surgical at this point. I would like to follow up on neurology recommendation I consulted yesterday but no note from neurology was seen yet. I would like to consult physical medicine and rehabilitation regarding discharge planning to inpatient rehabilitation program regarding his hydrocephalus findings and severe debility and deconditioning. Plan discussed with patient and nursing staff at the bedside
[2018-04-24 17:10] LABS: Glucose,Whole Blood 251 mg/dL (75-99)
[2018-04-24 20:13] LABS: Glucose,Whole Blood 366 mg/dL (75-99)
[2018-04-24] MEDS: GLIMEPIRIDE 2 MG TAB PO SCH (23:20)
[2018-04-24] MEDS: ATORVASTATIN 10 MG TAB PO SCH (23:20)
--- NOTE | 2018-04-25 06:33 | P.CONS ---
History of Present Illness - Chief Complaint Medical debility - History of Present Illness I had the opportunity to see patient for inpatient rehab consultation with regard to medical debility. He is admitted to [facility] April 23 with generalized weakness and inability to stand. Presumptive diagnosis UTI. Chest x-ray negative. Lumbar MRI with bulge T12, L3. L4 bulge and facet hypertrophy with left sites. L5 protrusion and facet hypertrophy with bilateral stenosis. Head CT with mild hydrocephalus and bilateral external gaze consistent with strabismus. I have added OT at this time. Previous functional history as elicited from patient: 82-year-old right-handed white male who is , lives in one floor home alone. Retired. Daughter does the laundry and driving. Patient does some very simple cooking and sink bath. PMD is Dr. Grover. Review of Systems Review of systems: ENT: Denies sneezes or discharge. Eyes: Denies discharge or photophobia. Cardiac: Denies chest pain or palpitation. Pulmonary: Denies cough or shortness of breath. Gastrointestinal: Denies nausea, emesis, constipation, diarrhea. Genitourinary: Denies discharge or frequency. Musculoskeletal: Denies muscle or bone aches. Neurologic: Mild weakness, much improved from admission. Endocrine: Denies shakes or sweats. Oncology: Denies cancers. Dermatologic: Denies rash, itching, pruritus. ALLERGY/immunology: Denies sneezes, rashes. Past Medical History Past Medical History: Diabetes Mellitus, Hyperlipidemia, Hypertension Additional Past Medical History / Comment(s): NIDDM type II, aortic aneursym, abdominal hernia, bilateral cataracts History of Any Multi-Drug Resistant Organisms: None Reported Past Surgical History: Tonsillectomy Past Anesthesia/Blood Transfusion Reactions: No Reported Reaction Past Psychological History: Depression Additional Psychological History / Comment(s): Pt lives alone. He has a daughter who is helpful. He has no home care. He uses a cane prn. He no longer drives. His deneen, Idalia takes him to [employer]. He states he has tried [employer] Wheels in the past-uncertain why he no longer does. States he is unable to cook for himself. He states he is very depressed at times because his spouse October 2015 and he still misses her very much. He states he is not suicidal. He has a glucometer. No steps in house. Smoking Status: Former smoker Past Alcohol Use History: None Reported Additional Past Alcohol Use History / Comment(s): Pt states he started smoking in 1949 and quit in 2008. Past Drug Use History: None Reported - Past Family History Father Family Medical History: CVA/TIA Son(s) Additional Family Medical History / Comment(s): He has 2 sons. One has coronary artery disease and a stent placed at age 58. He has a second son with hypertension, cholesterol, diabetes. Daughter(s) Additional Family Medical History / Comment(s): He has 3 daughters. Brother(s) Additional Family Medical History / Comment(s): Patient has a total of 6 brothers and one from a myocardial infarction. One at age 84 from a bowel problem but not cancer. Sister(s) Additional Family Medical History / Comment(s): He has 4 sisters. Medications and Allergies Home Medications Medication Instructions Recorded Confirmed Type Lisinopril [Zestril] 20 mg PO DAILY 12/02/15 04/23/18 History Simvastatin [Zocor] 10 mg PO HS 01/04/17 04/23/18 History Glimepiride [Amaryl] 2 mg PO HS 04/23/18 04/23/18 History sitaGLIPtin PHOS/metFORMIN HCL 1 tab PO DAILY 04/23/18 04/23/18 History [Janumet 50-1,000 mg Tablet] Allergies Allergy/AdvReac Type Severity Reaction Status Date / Time strawberry Allergy Unknown Verified 04/23/18 12:33 Physical Exam Vitals: Vital Signs Temp Pulse Resp BP Pulse Ox 04/25/18 00:35 16 04/24/18 20:40 85 16 04/24/18 20:00 97.5 F L 85 16 109/62 97 04/24/18 15:00 97.8 F 73 18 102/64 94 L 04/24/18 12:35 97.4 F L 79 16 112/67 95 04/24/18 09:21 97.6 F 85 14 106/66 95 Intake and Output 04/24/18 04/24/18 04/25/18 14:59 22:59 06:59 Intake Total 50 400 400 Balance 50 400 400 Intake: Intake, IV Titration 50 50 Amount cefTRIAXone 1,000 mg In 50 50 Sodium Chloride 0.9% 50 ml @ 100 mls/hr IVPB Q12HR [facility] Rx#:[id number] Oral 350 400 Other: Voiding Method Toilet Urinal # Voids 2 3 # Bowel Movements 1 Skin: Atrophic, intact. General: Medium build and comfortable appearance. Head: Normocephalic, atraumatic. Eyes: Symmetric. Pupils equal round. Ears: Symmetric. Hearing within normal limits. Mouth: Clear. Neck: Supple. Carotid without bruit. Cardiac: Regular rate and rhythm. Lungs: Clear anteriorly and posteriorly. Abdomen: Soft active nontender. Slightly protuberant. Extremities: Normal tone. Neurological: Mental status: Alert, cooperative, pleasant. Cranial nerves: Symmetric facial tone and trapezius. Motor: Able to actively elevate all 4 limbs. Sensation: Intact throughout. DTRs: Symmetric and equal throughout. Mobility: Requires assistance for bed mobility. Results CBC & Chem 7: 04/23/18 01:10 04/23/18 01:10 Labs: Abnormal Lab Results - Last 24 Hours (Table) 04/24/18 04/24/18 04/24/18 Range/Units 07:21 11:38 17:09 POC Glucose (mg/dL) 187 H 314 H 251 H (75-99) mg/dL 04/24/18 Range/Units 20:02 POC Glucose (mg/dL) 366 H (75-99) mg/dL Assessment and Plan (1) Weakness Current Visit: Yes Status: Acute Code(s): R53.1 - WEAKNESS SNOMED Code(s) : 49477414 (2) Urinary tract infection Current Visit: No Status: Acute Code(s): N39.0 - URINARY TRACT INFECTION, SITE NOT SPECIFIED SNOMED Code(s): 96591492 Plan: Impression: 1. Walking difficulty. 2. Generalized weakness. 3. UTI. 4. Hyperglycemia due to type 2 diabetes. 5. Hypertension. 6. Dyslipidemia. Comments and plan: At this time PT ongoing and OT prescribed. Follow therapies with yourself for possible need and benefit of inpatient rehab.
[2018-04-25 07:34] LABS: Glucose,Whole Blood 158 mg/dL (75-99)
[2018-04-25] MEDS: INSULIN ASPART 100 UNIT/ML 1 ML 10 ML VIAL SQ SCH ×4 (08:13→22:52)
[2018-04-25] MEDS: LINAGLIPTIN 5 MG TABLET PO SCH (08:16)
[2018-04-25] MEDS: LISINOPRIL 20 MG TAB PO SCH (08:16)
[2018-04-25] MEDS: HEPARIN SODIUM,PORCINE 5,000 UNIT/ML 1 ML VIAL SQ SCH ×3 (08:16→23:02)
[2018-04-25] MEDS: metFORMIN 500 MG TAB PO SCH (08:16)
[2018-04-25 12:06] LABS: Glucose,Whole Blood 271 mg/dL (75-99)
--- NOTE | 2018-04-25 15:05 | P.PN ---
Subjective Progress Note Date: 04/25/18 This is 82 years old male who presented to the emergency department with new onset lower extremity weakness. Patient is poor historian but alert and oriented 4 who reported all of a sudden weakness yesterday morning when he was trying to get up from his chair and stated that that never happened to him before patient stated that he is usually independent and ambulating on his own without any difficulty or requiring assistance. Patient reporting walking without cane or walker and stated that he's been in his regular state of health denying any upper respiratory symptoms, productive cough, chest pain, shortness breath, change to bowel regimen, dizziness, lightheadedness, focal weakness, slurred speech, numbness or tingling. A shunt reported increasing in the frequency of urination without dysuria or odor. Patient denied any blood in the urine. In the emergency department multiple attempts to get this person up was done by ER physician and patient was not able to get up on his own and was admitted for further evaluation. Patient reported 2 episodes of fall in the last month related to his generalized weakness. Patient denied any weight loss or any other constitutional symptoms. Patient denied tobacco alcohol or drug abuse and stated that he's been in his regular state of health. 04/24: Patient has been in bed since yesterday, has been delirious overnight but seems to be improved this morning and back at baseline. Patient stated that he has not tried to get out of bed and still feeding weak in his lower extremity but his neuro exam revealed stable finding. I have reviewed CT scan of the head and MRI of the lumbar sacral area and etiology could be related to hydrocephalus complicated with multiple degenerative changes on the lumbar sacral area evidenced by nerve root compression which seems to be not surgical at this point. I would like to follow up on neurology recommendation I consulted yesterday but no note from neurology was seen yet. I would like to consult physical medicine and rehabilitation regarding discharge planning to inpatient rehabilitation program regarding his hydrocephalus findings and severe debility and deconditioning. Plan discussed with patient and nursing staff at the bedside 04/25: White blood glucose Reading between 158 and 366. Vital signs have been stable, patient is been afebrile. Blood pressure is on the low side and parameters placed on blood pressure medications. Pulse ox is 93% on room air. Patient has been seen by Dr. Delgado for inpatient rehab but daughter states the patient will not go to rehab and the plan will be for him to return home with homecare. Regarding CAT scan with possible hydrocephalus, consult with neurology added. Patient is stating he feels tired. He is oriented to person, place and season. He cannot recall the date. He denies any incontinence of urine. Review Of Systems: Constitutional: No fever, no chills, no night sweats. EENT: No headache. No sore throat. Lungs: No shortness of breath, cough, no sputum production. No wheezing. Cardiovascular: No chest pain, no lower extremity edema. No palpitations. Abdominal: No abdominal pain. No nausea, vomiting. No diarrhea. No constipation. No bloody or tarry stools. No loss of appetite. Genitourinary: No dysuria, increased frequency, urgency. No urinary retention. Musculoskeletal: No myalgias. + muscle weakness. No neck pain. Integumentary: No rash or pruritus. Psychiatric: No depression. No anxiety. No mood swings. Endocrine: + abnormal blood sugars. No excessive sweating or thirst. No cold intolerance. No weight change. Objective - Vital Signs Vital signs: Vital Signs Temp 98.4 F 04/25/18 07:00 Pulse 76 04/25/18 07:00 Resp 24 04/25/18 07:00 BP 91/46 04/25/18 07:00 Pulse Ox 93 L 04/25/18 07:00 Intake & Output 04/24/18 04/25/18 04/25/18 18:59 06:59 18:59 Intake Total 50 800 Balance 50 800 Intake: Intake, IV Titration 50 50 Amount cefTRIAXone 1,000 mg In 50 50 Sodium Chloride 0.9% 50 ml @ 100 mls/hr IVPB Q12HR [facility] Rx#:[id number] Oral 750 Other: Voiding Method Toilet Toilet Urinal Urinal # Voids 1 3 # Bowel Movements 1 - Exam Gen: This is an 82-year-old male. He is sitting up in a chair at the bedside and appears to be comfortable and in no acute distress. HEENT: Head is atraumatic, normocephalic. Pupils equal, round. Sclerae is anicteric. NECK: Supple. No JVD. No lymphadenopathy. No thyromegaly. LUNGS: Clear to auscultation. No wheezes or rhonchi. No intercostal retractions. HEART: Regular rate and rhythm. No murmur. ABDOMEN: Soft. Bowel sounds are present. No masses. No tenderness. EXTREMITIES: No pedal edema. No calf tenderness. NEUROLOGICAL: Patient is awake, alert and oriented x3. Cranial nerves 2 through 12 are grossly intact. - Labs CBC & Chem 7: 04/23/18 01:10 04/23/18 01:10 Labs: Abnormal Lab Results - Last 24 Hours (Table) 04/24/18 04/24/18 04/24/18 Range/Units 11:38 17:09 20:02 POC Glucose (mg/dL) 314 H 251 H 366 H (75-99) mg/dL 04/25/18 Range/Units 07:23 POC Glucose (mg/dL) 158 H (75-99) mg/dL Assessment and Plan Plan: 1. Generalized weakness with recurrent falls. PT and OT. Consult with Dr. Sandy nathan. 2. Urinary tract infection. Patient is currently on ceftriaxone. 3. Leukocytosis. Recheck lab work tomorrow 4. Mild hyponatremia. Recheck lab work tomorrow 5. Uncontrolled diabetes mellitus type 2 [id number]. Continue glimepiride, Tradjenta, metformin, NovoLog before meals and at bedtime 6. Hypertension. Continue lisinopril 20 mg daily 7. Hyperlipidemia. Continue atorvastatin 10 mg at bedtime 8. Possible hydrocephalus. Consult with neurology. Discharge plan: Home with home care in the next 24 hours Impression and plan of care have been directed as dictated by the signing physician. Mena Gallardo nurse practitioner acting as scribe for signing physician.
[2018-04-25 16:36] LABS: Glucose,Whole Blood 220 mg/dL (75-99)
[2018-04-25 20:21] LABS: Glucose,Whole Blood 233 mg/dL (75-99)
[2018-04-25] MEDS: ATORVASTATIN 10 MG TAB PO SCH (22:51)
[2018-04-25] MEDS: GLIMEPIRIDE 2 MG TAB PO SCH (22:52)
[2018-04-26 07:18] LABS: Glucose,Whole Blood 177 mg/dL (75-99)
[2018-04-26 07:37] LABS: HCT 44.9 % (39.0-53.0); MCH 31.8 pg (25.0-35.0); MCHC 33.4 g/dL (31.0-37.0); MCV 95.1 fL (80.0-100.0); Mean Platelet Volume 8.9; Platelet Count 216 k/uL (150-450); RBC 4.72 m/uL (4.30-5.90); RDW 12.8 % (11.5-15.5)
[2018-04-26 08:07] LABS: Calcium 8.8 mg/dL (8.4-10.2); Potassium 4.6 mmol/L (3.5-5.1)
--- NOTE | 2018-04-26 08:25 | CONS ---
CONSULTATION DATE OF CONSULTATION: 04/25/2018 CHIEF COMPLAINT: Abnormal CT scan of the brain. HISTORY OF PRESENT ILLNESS: Mr. Williamson is a pleasant 82-year-old, male, who is being evaluated by the Neurology Service per the request of Dr. Maria for an abnormal CT scan of the brain. The patient was brought into [facility] Emergency Room with the complaints of gait instability and lower extremity weakness. The patient states that over the past 3 days, he noticed that he has been unsteady on his feet. The symptoms were of a sudden on set. He states that he has not had any similar episodes like this in the past. In the emergency room, a CT scan of the brain was done, which showed some generalized atrophy. And hydrocephalus. There was concern for possible normal pressure hydrocephalus and a neurology consultation was obtained. The patient denies any urinary incontinence. And denies any chronic gait instability. Actually, he states that his symptoms have significantly improved today and he did ambulate with no difficulties. The patient has been having some short-term memory difficulties over the past several years. These symptoms worsen 2 years ago when his . His CBC showed mild leukocytosis at 13.9. His urinalysis showed no signs of any urinary tract infection. His cardiac enzymes were normal. His comprehensive metabolic profile showed mild hyponatremia at 133, elevated BUN at 32, and hyperglycemia at 280. The patient denies any headache or dizziness. PAST MEDICAL HISTORY: Diabetes, dyslipidemia, hypertension, aortic aneurysm, hernia, cataracts, history of tonsillectomy. He also reports a history of depression. SOCIAL HISTORY: The patient is a former smoker. He denies any alcohol or drug use. FAMILY HISTORY: Positive for strokes hypertension dyslipidemia diabetes and heart disease. HOME MEDICATIONS: Reviewed in the chart. ALLERGIES: [place]. REVIEW OF SYSTEMS: As mentioned above and otherwise negative. PHYSICAL EXAM: Vital signs show a temperature of 98.2, pulse 82, respiration 22, blood pressure 114/72. GENERAL APPEARANCE: The patient is a well-developed, elderly male, who appears to be in no acute distress. HEENT: Normocephalic, atraumatic, exotropia is seen in the left eye, no facial asymmetry is seen. NECK: Supple with no masses felt. CARDIOVASCULAR: Regular rate and rhythm. ABDOMEN: Nontender nondistended. Extremities showed no edema or clubbing. NEUROLOGICAL EXAM: The patient is awake. And oriented x3. Speech and language are normal. Strength is full in all 4 extremities. Sensory exam showed diminished light touch sensation in bilateral distal lower extremities. Cranial nerve testing showed no significant abnormality. Except for left eye exotropia, which is chronic. IMPRESSION: 1. Gait instability, improved. 2. Chronic memory difficulties. 3. Hydrocephalus. RECOMMENDATION: The patient has gait instability has improved according to him and he has been ambulating with no difficulties. Physical therapy has been consulted and they will assess. His gait. If he is still on study, consider inpatient rehab. I doubt any symptoms of normal pressure hydrocephalus. As he denies any urinary incontinence and his short-term memory. Loss has been present for over 3 years. None the less, further outpatient neurological workup will be needed. For now, I will order a vitamin B12 level and a TSH level. Continue the rest of your current workup and management. I will continue to follow with you as needed. Thank you for allowing me to participate in the care of your patient. If you have any questions, please feel free to contact me. LAVONNE / MICHELET: [id number] /
[2018-04-26 08:28] VITALS: BP 133/60; PULSE 71; RESP 17; TEMP 96.8
[2018-04-26] MEDS: LINAGLIPTIN 5 MG TABLET PO SCH (08:29)
[2018-04-26] MEDS: INSULIN ASPART 100 UNIT/ML 1 ML 10 ML VIAL SQ SCH ×2 (08:30→12:16)
[2018-04-26] MEDS: LISINOPRIL 20 MG TAB PO SCH (08:30)
[2018-04-26] MEDS: metFORMIN 500 MG TAB PO SCH (08:30)
[2018-04-26] MEDS: HEPARIN SODIUM,PORCINE 5,000 UNIT/ML 1 ML VIAL SQ SCH (08:30)
[2018-04-26 11:59] LABS: Glucose,Whole Blood 274 mg/dL (75-99)
--- NOTE | 2018-04-26 12:19 | P.DS ---
Providers Date of admission: 04/23/18 04:12 Expected date of discharge: 04/26/18 Attending physician: Andre Maria Consults: 04/23/18 11:46 Consult Physician Routine Consulting Provider: Scott Delgado Consult Reason/Comments: weakness Do you want consulting provider notified?: Yes Primary care physician: [facility] Course: This is 82 years old male who presented to the emergency department with new onset lower extremity weakness. Patient is poor historian but alert and oriented 4 who reported all of a sudden weakness yesterday morning when he was trying to get up from his chair and stated that that never happened to him before patient stated that he is usually independent and ambulating on his own without any difficulty or requiring assistance. Patient reporting walking without cane or walker and stated that he's been in his regular state of health denying any upper respiratory symptoms, productive cough, chest pain, shortness breath, change to bowel regimen, dizziness, lightheadedness, focal weakness, slurred speech, numbness or tingling. A shunt reported increasing in the frequency of urination without dysuria or odor. Patient denied any blood in the urine. In the emergency department multiple attempts to get this person up was done by ER physician and patient was not able to get up on his own and was admitted for further evaluation. Patient reported 2 episodes of fall in the last month related to his generalized weakness. Patient denied any weight loss or any other constitutional symptoms. Patient denied tobacco alcohol or drug abuse and stated that he's been in his regular state of health. 04/24: Patient has been in bed since yesterday, has been delirious overnight but seems to be improved this morning and back at baseline. Patient stated that he has not tried to get out of bed and still feeding weak in his lower extremity but his neuro exam revealed stable finding. I have reviewed CT scan of the head and MRI of the lumbar sacral area and etiology could be related to hydrocephalus complicated with multiple degenerative changes on the lumbar sacral area evidenced by nerve root compression which seems to be not surgical at this point. I would like to follow up on neurology recommendation I consulted yesterday but no note from neurology was seen yet. I would like to consult physical medicine and rehabilitation regarding discharge planning to inpatient rehabilitation program regarding his hydrocephalus findings and severe debility and deconditioning. Plan discussed with patient and nursing staff at the bedside 10/22: White blood glucose Reading between 158 and 366. Vital signs have been stable, patient is been afebrile. Blood pressure is on the low side and parameters placed on blood pressure medications. Pulse ox is 93% on room air. Patient has been seen by Dr. Delgado for inpatient rehab but daughter states the patient will not go to rehab and the plan will be for him to return home with homecare. Regarding CAT scan with possible hydrocephalus, consult with neurology added. Patient is stating he feels tired. He is oriented to person, place and season. He cannot recall the date. He denies any incontinence of urine. 04/26: Leukocytosis has resolved, BUN 26 and creatinine 1.14. Capillary blood glucose running between 177 and 233. TSH is normal at 2.370 and previous TSH was 2.660. Sodium is normal at 137. No cultures were obtained on admission. Patient has been seen by Dr. Romero any doubts any symptoms of normal pressure hydrocephalus. He has had short-term memory loss for over 3 years. Vitamin B12 level and A1C is pending. Patient denies any new complaints and is anxious to go home. Patient will be discharged home today in stable condition. Discharge diagnoses: 1. Generalized weakness with recurrent falls. 2. Urinary tract infection. 3. Leukocytosis. 4. Mild hyponatremia. 5. Uncontrolled diabetes mellitus type 2. 6. Hypertension. 7. Hyperlipidemia. 8. Possible hydrocephalus ruled out by neurology. Discharge plan: Home with [facility] Impression and plan of care have been directed as dictated by the signing physician. Mena Gallardo nurse practitioner acting as scribe for signing physician. Patient Condition at Discharge: Good Plan - Discharge Summary Discharge Rx Participant: Yes New Discharge Prescriptions: Continue Lisinopril [Zestril] 20 mg PO DAILY Simvastatin [Zocor] 10 mg PO HS Glimepiride [Amaryl] 2 mg PO HS sitaGLIPtin PHOS/metFORMIN HCL [Janumet 50-1,000 mg Tablet] 1 tab PO DAILY Discharge Medication List Lisinopril [Zestril] 20 mg PO DAILY 12/02/15 [History] Simvastatin [Zocor] 10 mg PO HS 01/04/17 [History] Glimepiride [Amaryl] 2 mg PO HS 04/23/18 [History] sitaGLIPtin PHOS/metFORMIN HCL [Janumet 50-1,000 mg Tablet] 1 tab PO DAILY 04/23 [History] Follow up Appointment(s)/Referral(s): [facility], [NON-STAFF] - Vicky Romero MD [STAFF PHYSICIAN] - 2 Weeks Gera Grover DO [Primary Care Provider] - 1 Week
[2018-04-26 14:14] LABS: Hemoglobin A1C 13.2 % (4.0-6.0)
== END 2018-04-26 15:15 | disposition home health service (06) ==
LOC: EC 00:46 → 4SSUR 04:12
PROVIDERS: ADMIT Internal Medicine; ATTEND Internal Medicine
DX: R53.1 Weakness (principal); R29.6 Repeated falls; N39.0 Urinary tract infection, site not specified; E87.1 Hypo-osmolality and hyponatremia; E11.65 Type 2 diabetes mellitus with hyperglycemia; I10 Essential (primary) hypertension; E78.5 Hyperlipidemia, unspecified; R41.0 Disorientation, unspecified; R41.3 Other amnesia; G54.4 Lumbosacral root disorders, not elsewhere classified; R26.9 Unspecified abnormalities of gait and mobility; R94.02 Abnormal brain scan; R94.4 Abnormal results of kidney function studies; Z91.14 Patient's other noncompliance with medication regimen; Z79.899 Other long term (current) drug therapy; Z79.84 Long term (current) use of oral hypoglycemic drugs; Z91.018 Allergy to other foods; Z87.891 Personal history of nicotine dependence; Z82.3 Family history of stroke; Z82.49 Family history of ischemic heart disease and other diseases of the circulatory system; Z83.79 Family history of other diseases of the digestive system; E66.9 Obesity, unspecified; Z68.27 Body mass index [BMI] 27.0-27.9, adult
CPT/HCPCS: 99285; 96361 ×2; 96365; 96366 ×2; 96372 ×4; 36415; 93005; 97116 ×2; 97162; 97535; 97166; 82652; 80053; 80048; 84443 ×2; 82607; 82550; 82553; 84484; 85025; 85027; 85610; 85730; 81001; 83036; 71046; 70450; 72148; G0378 ×4; J1644 ×4; J0696 ×4

== ENCOUNTER 2020-02-12 21:57 | Inpatient (IN) | payer MEDICARE, OTHER ==
--- NOTE | 2020-02-12 22:22 | ED ---
General Adult HPI - General Stated complaint: Low O2 Time Seen by Provider: 02/12/20 22:13 Source: patient, EMS Mode of arrival: EMS Limitations: no limitations - History of Present Illness Initial comments: Santana is a pleasantly demented 84-year-old male who presents the ER today from senior care for evaluation of low SpO2 and hypertension which were noted by nursing staff when rounding earlier. Upon arrival patient complaints. Oxygen saturation noted to be 6% on room air. Patient offered no complaints. - Related Data Home Medications Medication Instructions Recorded Confirmed lisinopriL [Zestril] 20 mg PO DAILY 12/02/15 04/23/18 Simvastatin [Zocor] 10 mg PO HS 01/04/17 04/23/18 Glimepiride [Amaryl] 2 mg PO HS 04/23/18 04/23/18 sitaGLIPtin PHOS/metFORMIN HCL 1 tab PO DAILY 04/23/18 04/23/18 [Janumet 50-1,000 mg Tablet] Allergies Allergy/AdvReac Type Severity Reaction Status Date / Time strawberry Allergy Unknown Verified 04/23/18 12:33 Review of Systems ROS Statement: Those systems with pertinent positive or pertinent negative responses have been documented in the HPI. ROS Other: All systems not noted in ROS Statement are negative. Past Medical History Past Medical History: Diabetes Mellitus, Hyperlipidemia, Hypertension Additional Past Medical History / Comment(s): NIDDM type II, aortic aneursym, abdominal hernia, bilateral cataracts History of Any Multi-Drug Resistant Organisms: None Reported Past Surgical History: Tonsillectomy Past Anesthesia/Blood Transfusion Reactions: No Reported Reaction Past Psychological History: Depression Past Alcohol Use History: None Reported Past Drug Use History: None Reported - Past Family History Father Family Medical History: CVA/TIA Son(s) Additional Family Medical History / Comment(s): He has 2 sons. One has coronary artery disease and a stent placed at age 58. He has a second son with hypertension, cholesterol, diabetes. Daughter(s) Additional Family Medical History / Comment(s): He has 3 daughters. Brother(s) Additional Family Medical History / Comment(s): Patient has a total of 6 brothers and one from a myocardial infarction. One at age 84 from a bowel problem but not cancer. Sister(s) Additional Family Medical History / Comment(s): He has 4 sisters. General Exam - General Exam Comments Initial Comments: Physical Exam GENERAL: Patient is well-developed and well-nourished. Patient is nontoxic and well- hydrated and is in no distress. HENT: Normocephalic, Atraumatic. EYES: PERRL, EOMI PULMONARY: Crackles at bilateral bases CARDIOVASCULAR: Bradycardic, regular 2+ pitting edema of lower extremities ABDOMEN: Soft and nontender with normal bowel sounds. Soft umbilical hernia, reducible SKIN: Skin is clear with no lesions or rashes and otherwise unremarkable. : Deferred NEUROLOGIC: Alert and oriented times self Moving all extremities MUSCULOSKELETAL: Normal extremities with adequate strength and full range of motion. PSYCHIATRIC: Pleasantly demented Limitations: no limitations Course Vital Signs 02/12/20 02/12/20 22:02 23:49 Temperature 97.5 F L Pulse Rate 72 56 L Respiratory 16 16 Rate Blood Pressure 164/83 149/76 O2 Sat by Pulse 91 L 95 Oximetry EKG Findings - EKG Comments: EKG Findings:: EKG obtained due to complaint of shortness of breath, EKG was obtained at 229, rate as a narrow complex bradycardia with a rate of 58, P waves are not visible in all leads due to artifact however this appears to be a sinus bradycardia no acute ST elevations or depressions no evidence of acute ischemia or infarction. Medical Decision Making - Medical Decision Making The patient was seen and evaluated history is obtained from EMS and review of medical record History and physical exam are concerning for heart failure Labs and chest x-ray are consistent with heart failure Patient care was discussed with his daughter who is his medical power of research attorney who agrees with plan for admission for IV Lasix and supportive care, confirms that the patient is DNA R as documented in his paperwork from [facility] Patient care was discussed with Dr. Franco who agrees with plan for admission for heart failure - Lab Data Result diagrams: 02/12/20 22:46 02/12/20 22:46 Lab Results 02/12/20 02/12/20 02/12/20 Range/Units 22:46 22:46 22:46 WBC 12.4 H (3.8-10.6) k/uL RBC 3.51 L (4.30-5.90) m/uL Hgb 11.2 L (13.0-17.5) gm/dL Hct 34.7 L (39.0-53.0) % MCV 99.0 (80.0-100.0) fL MCH 31.8 (25.0-35.0) pg MCHC 32.1 (31.0-37.0) g/dL RDW 14.2 (11.5-15.5) % Plt Count 145 L (150-450) k/uL Neutrophils % 80 % Lymphocytes % 9 % Monocytes % 5 % Eosinophils % 5 % Basophils % 1 % Neutrophils # 9.9 H (1.3-7.7) k/uL Lymphocytes # 1.1 (1.0-4.8) k/uL Monocytes # 0.6 (0-1.0) k/uL Eosinophils # 0.6 (0-0.7) k/uL Basophils # 0.1 (0-0.2) k/uL PT 10.8 (9.0-12.0) sec INR 1.1 (<1.2) APTT 27.3 (22.0-30.0) sec Sodium 137 (137-145) mmol/L Potassium 4.6 (3.5-5.1) mmol/L Chloride 104 (98-107) mmol/L Carbon Dioxide 28 (22-30) mmol/L Anion Gap 5 mmol/L BUN 33 H (9-20) mg/dL Creatinine 1.61 H (0.66-1.25) mg/dL Est GFR (CKD-EPI)AfAm 44 (>60 ml/min/1.73 sqM) Est GFR (CKD-EPI)NonAf 38 (>60 ml/min/1.73 sqM) Glucose 208 H (74-99) mg/dL Plasma Lactic Acid Chapo (0.7-2.0) mmol/L Calcium 8.5 (8.4-10.2) mg/dL Total Bilirubin 0.5 (0.2-1.3) mg/dL AST 33 (17-59) U/L ALT 29 (4-49) U/L Alkaline Phosphatase 89 (38-126) U/L Troponin I (0.000-0.034) ng/mL NT-Pro-B Natriuret Pep pg/mL Total Protein 5.5 L (6.3-8.2) g/dL Albumin 3.0 L (3.5-5.0) g/dL 02/12/20 02/12/20 02/12/20 Range/Units 22:46 22:46 22:46 WBC (3.8-10.6) k/uL RBC (4.30-5.90) m/uL Hgb (13.0-17.5) gm/dL Hct (39.0-53.0) % MCV (80.0-100.0) fL MCH (25.0-35.0) pg MCHC (31.0-37.0) g/dL RDW (11.5-15.5) % Plt Count (150-450) k/uL Neutrophils % % Lymphocytes % % Monocytes % % Eosinophils % % Basophils % % Neutrophils # (1.3-7.7) k/uL Lymphocytes # (1.0-4.8) k/uL Monocytes # (0-1.0) k/uL Eosinophils # (0-0.7) k/uL Basophils # (0-0.2) k/uL PT (9.0-12.0) sec INR (<1.2) APTT (22.0-30.0) sec Sodium (137-145) mmol/L Potassium (3.5-5.1) mmol/L Chloride (98-107) mmol/L Carbon Dioxide (22-30) mmol/L Anion Gap mmol/L BUN (9-20) mg/dL Creatinine (0.66-1.25) mg/dL Est GFR (CKD-EPI)AfAm (>60 ml/min/1.73 sqM) Est GFR (CKD-EPI)NonAf (>60 ml/min/1.73 sqM) Glucose (74-99) mg/dL Plasma Lactic Acid Chapo 1.0 (0.7-2.0) mmol/L Calcium (8.4-10.2) mg/dL Total Bilirubin (0.2-1.3) mg/dL AST (17-59) U/L ALT (4-49) U/L Alkaline Phosphatase (38-126) U/L Troponin I <0.012 (0.000-0.034) ng/mL NT-Pro-B Natriuret Pep 5310 pg/mL Total Protein (6.3-8.2) g/dL Albumin (3.5-5.0) g/dL Disposition Clinical Impression: Heart failure, Hyperglycemia due to type 2 diabetes mellitus Disposition: ADMITTED IP TO THIS HOSP Condition: Serious Is patient prescribed a controlled substance at d/c from ED?: No Referrals: Roula Mcadams MD [Primary Care Provider] - 1-2 days
[2020-02-12 22:53] LABS: Basophils # (A) 0.1 k/uL (0-0.2); Basophils % (A) 1 %; Eosinophils # (A) 0.6 k/uL (0-0.7); Eosinophils % (A) 5 %; HCT 34.7 % (39.0-53.0); HGB 11.2 gm/dL (13.0-17.5); Lymphocytes # (A) 1.1 k/uL (1.0-4.8); Lymphocytes % (A) 9 %; MCH 31.8 pg (25.0-35.0); MCHC 32.1 g/dL (31.0-37.0); Mean Platelet Volume 10.1; Monocytes # (A) 0.6 k/uL (0-1.0); Monocytes % (A) 5 %; Neutrophils # (A) 9.9 k/uL (1.3-7.7); Neutrophils % (A) 80 %; Platelet Count 145 k/uL (150-450); RBC 3.51 m/uL (4.30-5.90); RDW 14.2 % (11.5-15.5); WBC 12.4 k/uL (3.8-10.6)
[2020-02-12 23:02] LABS: INR 1.1 (<1.2); Partial Thromboplastin Time 27.3 sec (22.0-30.0); Prothrombin Time 10.8 sec (9.0-12.0)
[2020-02-12 23:05] LABS: Calcium 8.5 mg/dL (8.4-10.2); Potassium 4.6 mmol/L (3.5-5.1); Total Bilirubin 0.5 mg/dL (0.2-1.3); Total Protein 5.5 g/dL (6.3-8.2)
[2020-02-12] MEDS ORDERED: FUROSEMIDE 10 MG/ML 4 ML VIAL IV STA (23:22)
--- NOTE | 2020-02-12 23:44 | XR ---
EXAMINATION TYPE: XR chest 2V DATE OF EXAM: 02/12/2020 COMPARISON: 04/23/2018 HISTORY: Weakness. Hypoxemia TECHNIQUE: FINDINGS: Heart is enlarged. There is pulmonary edema. There is some blunting of the costophrenic ang les. There is fluid in the major fissures. There are chest leads. Bony thorax is intact. IMPRESSION: Congestive heart failure with pleural effusions that is a change compared to old exam.
[2020-02-13] MEDS: FUROSEMIDE 10 MG/ML 4 ML VIAL IV SCH ×2 (00:41→12:05)
[2020-02-13] MEDS ORDERED: LORazepam 2 MG/ML INJ IV STA ×2 (05:58→22:07)
[2020-02-13] MEDS: INSULIN ASPART (NovoLOG) 100 UNIT/ML VIAL SQ SCH ×4 (06:07→22:23)
[2020-02-13 06:08] LABS: Glucose,Whole Blood 111 mg/dL (75-99)
[2020-02-13] MEDS ORDERED: HEPARIN SODIUM,PORCINE 5,000 UNIT/ML 1 ML VIAL SQ SCH (08:00)
[2020-02-13] MEDS: LINAGLIPTIN 5 MG TABLET PO SCH (08:56)
[2020-02-13] MEDS ORDERED: metFORMIN 500 MG TAB PO SCH (09:00)
[2020-02-13] MEDS ORDERED: lisinopriL 20 MG TAB PO SCH (09:00)
[2020-02-13] MEDS ORDERED: NITROGLYCERIN SL TABS 0.4 MG TAB SUBLINGUAL PRN (09:39)
[2020-02-13] MEDS ORDERED: ACETAMINOPHEN TAB 325 MG TAB PO PRN (09:39)
[2020-02-13] MEDS ORDERED: GLUCERNA SHAKE PO SCH (10:00)
--- NOTE | 2020-02-13 10:35 | P.HPIM ---
History of Present Illness H&P Date: 02/13/20 Chief Complaint: Low pulse ox History of Present Illness This is an 84-year-old male patient of Dr. Mcadams residing at [facility] with past medical history of diabetes mellitus type 2, hypertension, hyperlipidemia, dementia, aortic aneurysm. Patient was found by nursing staff to have a low pulse ox and was sent into [facility] emergency center for evaluation. Chest x-ray reveals congestive heart failure with pleural effusions. Pulse ox 85% on room air, afebrile, heart rate in the 50s, blood pressure 164/83. Blood work revealed WBC 12.4, hemoglobin 11.2, platelet count 145. Electrolytes normal, BUN 33 and creatinine 1.61 with baseline around 1. Blood sugar was initially 38. Liver function tests normal. Troponin negative. ProBNP 5310. EKG sinus rhythm at rate of 58. Patient was started on Lasix 40 mg IV every 12 hours and admitted to the cardiac stepdown unit, consults with cardiology for heart failure and pulmonary medicine for pleural effusions. Review of Systems Unable to obtain due to dementia Physical Examination Gen: This is an 84-year-old male. Patient is resting on the ER stretcher and appears to be comfortable and in no acute distress. No respiratory distress noted at rest. HEENT: Head is atraumatic, normocephalic. Pupils equal, round. Sclerae is anicteric. NECK: Supple. No JVD. No lymphadenopathy. No thyromegaly. LUNGS: Diminished bilaterally. No wheezes. No intercostal retractions. HEART: Regular rate and rhythm. No murmur. ABDOMEN: Soft. Bowel sounds are present. No masses. No tenderness. EXTREMITIES: 2+ bilateral pedal edema. No calf tenderness. Dorsalis pedis palpable bilaterally. NEUROLOGICAL: Patient is awake and oriented to person, pleasantly confused. Generalized weakness with no focal neural deficits.. Assessment and Plan 1. Acute hypoxic respiratory failure secondary to a combination of acute on chronic heart failure, pleural effusions. Patient started on Lasix 40 mg IV every 12 hours, I&O and daily weights, daily lab work to monitor her lites and renal function. Consult with cardiology and pulmonary medicine. Echocardiogram ordered. 2. Acute kidney injury with chronic kidney disease stage III. Lisinopril discontinued. Recheck electrolytes in the morning. Avoid nephrotoxic agents. 3. Metabolic encephalopathy secondary to hypoglycemia, respiratory failure. Metformin and glimepiride discontinued. Continue Tradjenta 5 mg daily, NovoLog scale before meals and at bedtime. Hold Xanax for now 4. Diabetes mellitus type 2. Metformin and glimepiride discontinued. Continue Tradjenta 5 mg daily, NovoLog scale before meals and at bedtime. 5. Hypertension. Continue Lopressor 12.5 mg twice daily, hold lisinopril. 6. Hyperlipidemia. Continue Lipitor 10 mg at bedtime. 7. Dementia. Continue Aricept 10 mg at bedtime. 8. Recurrent depression and generalized anxiety disorder. Continue Lexapro 20 mg daily, BuSpar 15 mg twice daily. Hold Xanax. 9. Benign prostatic hypertrophy. Continue Flomax or 0.4 mg twice daily. 10. GI prophylaxis. Protonix. 11. DVT prophylaxis. Heparin subcu area COVID-19 testing. CODE STATUS: no code Patient will be admitted to the hospital for a minimum of 2 night stay. Discharge plan: Return to [facility] Impression and plan of care have been directed as dictated by the signing physician. Mena Gallardo nurse practitioner acting as scribe for signing physician. Past Medical History Past Medical History: Diabetes Mellitus, Hyperlipidemia, Hypertension Additional Past Medical History / Comment(s): NIDDM type II, aortic aneursym, abdominal hernia, bilateral cataracts History of Any Multi-Drug Resistant Organisms: None Reported Past Surgical History: Tonsillectomy Past Anesthesia/Blood Transfusion Reactions: No Reported Reaction Past Psychological History: Depression Smoking Status: Former smoker Past Alcohol Use History: None Reported Additional Past Alcohol Use History / Comment(s): Pt states he started smoking in 1949 and quit in 2008. Past Drug Use History: None Reported - Past Family History Father Family Medical History: CVA/TIA Son(s) Additional Family Medical History / Comment(s): He has 2 sons. One has coronary artery disease and a stent placed at age 58. He has a second son with hypertension, cholesterol, diabetes. Daughter(s) Additional Family Medical History / Comment(s): He has 3 daughters. Brother(s) Additional Family Medical History / Comment(s): Patient has a total of 6 brothers and one from a myocardial infarction. One at age 84 from a bowel problem but not cancer. Sister(s) Additional Family Medical History / Comment(s): He has 4 sisters. Medications and Allergies Home Medications Medication Instructions Recorded Confirmed Type lisinopriL [Zestril] 20 mg PO BID@0900,1700 12/02/15 02/13/20 History Simvastatin [Zocor] 10 mg PO HS@209901/04/17 02/13/20 History Glimepiride [Amaryl] 2 mg PO BID@0900,1700 04/23/18 02/13/20 History ALPRAZolam [Xanax] 0.25 mg PO BID@1500,209902/13/20 02/13/20 History ALPRAZolam [Xanax] 0.25 mg PO DAILY PRN 02/13/20 02/13/20 History Acetaminophen Tab [Tylenol] 650 mg PO Q4H PRN 02/13/20 02/13/20 History Aspirin [Adult Low Dose Aspirin EC] 81 mg PO DAILY@89902/13/20 02/13/20 History Dextromethorphan HBr/Quinidine 1 cap PO BID@0900,209902/13/20 02/13/20 History [Nuedexta 20-10 mg Capsule] Donepezil [Aricept] 10 mg PO HS@209902/13/20 02/13/20 History Escitalopram [Lexapro] 20 mg PO DAILY@89902/13/20 02/13/20 History Furosemide [Lasix] 20 mg PO DAILY@89902/13/20 02/13/20 History Glucerna Shake 240 ml PO TID@1000,1400,199902/13/20 02/13/20 History Loperamide HCl [Imodium A-D] 2 - 4 mg PO QID PRN 02/13/20 02/13/20 History Melatonin 10 mg PO HS@209902/13/20 02/13/20 History Menthol-Camphor Lotion [Sarna 1 applic TOPICAL BID 02/13/20 02/13/20 History Lotion 0.5%-0.5%] Menthol-Camphor Lotion [Sarna 1 applic TOPICAL DAILY PRN 02/13/20 02/13/20 History Lotion 0.5%-0.5%] Metoprolol Tartrate 12.5 mg PO BID@0900,209902/13/20 02/13/20 History Nitroglycerin Sl Tabs [Nitrostat] 0.4 mg SL Q5M PRN 02/13/20 02/13/20 History Tamsulosin HCl [Flomax] 0.4 mg PO BID@899,209902/13/20 02/13/20 History busPIRone HCL 15 mg PO BID@00,209902/13/20 02/13/20 History Allergies Allergy/AdvReac Type Severity Reaction Status Date / Time strawberry Allergy Unknown Verified 02/13/20 08:54 Physical Exam Vitals: Vital Signs Temp Pulse Pulse Pulse Resp BP BP 02/13/20 08:00 97.6 F 57 L 16 123/60 02/13/20 04:15 02/13/20 04:00 96.7 F L 56 L 56 L 18 159/90 02/13/20 02:29 54 L 18 169/80 02/13/20 02:00 57 L 16 156/81 02/13/20 00:00 52 L 16 160/77 02/12/20 23:49 56 L 16 149/76 02/12/20 22:02 97.5 F L 72 16 164/83 Pulse Ox 02/13/20 08:00 95 02/13/20 04:15 92 L 02/13/20 04:00 85 L 02/13/20 02:29 95 02/13/20 02:00 96 02/13/20 00:00 02/12/20 23:49 95 02/12/20 22:02 91 L Intake and Output 02/12/20 02/13/20 02/13/20 22:59 06:59 14:59 Other: Voiding Method Incontinent # Bowel Movements 1 Weight 82.554 kg 82.554 kg Results CBC & Chem 7: 02/12/20 22:46 02/12/20 22:46 Labs: Abnormal Lab Results - Last 24 Hours (Table) 02/12/20 02/12/20 02/13/20 Range/Units 22:46 22:46 06:06 WBC 12.4 H (3.8-10.6) k/uL RBC 3.51 L (4.30-5.90) m/uL Hgb 11.2 L (13.0-17.5) gm/dL Hct 34.7 L (39.0-53.0) % Plt Count 145 L (150-450) k/uL Neutrophils # 9.9 H (1.3-7.7) k/uL BUN 33 H (9-20) mg/dL Creatinine 1.61 H (0.66-1.25) mg/dL Glucose 208 H (74-99) mg/dL POC Glucose (mg/dL) 111 H (75-99) mg/dL Total Protein 5.5 L (6.3-8.2) g/dL Albumin 3.0 L (3.5-5.0) g/dL Thrombosis Risk Factor Assmnt - DVT/VTE Prophylaxis DVT/VTE Prophylaxis: Pharmacologic Prophylaxis ordered
[2020-02-13 12:05] LABS: Glucose,Whole Blood 98 mg/dL (75-99)
--- NOTE | 2020-02-13 12:27 | P.CRDCN ---
History of Present Illness Consult date: 02/13/20 Requesting physician: Daniel Franco Reason for Consult (text): This is a pleasant but very confused 84-year-old gentleman who follows with Dr. Membreno in the office. The patient does have advanced dementia and is quite confused therefore HPI was mostly obtained from the chart and the nursing staff. He has a history of type 2 diabetes mellitus, hypertension, hyperlipidemia, aneurysm, and advanced dementia. He was sent to the emergency department after being found to have a low pulse ox by the staff at [facility]. Pulse ox was 85% on room air is afebrile. Chest x-ray on admission revealed congestive heart failure with pleural effusions. Labs show white blood cell count 12,400, hemoglobin 11.2, BUN 33, creatinine 1.61, potassium 4.6, troponin less than 0.012 and an T proBNP elevated at 5310. EKG on admission showed sinus bradycardia with nonspecific ST-T wave abnormalities. Of note the patient was admitted to [facility] back in April 2019 and underwent echocardiogram at that time which showed normal LV systolic function with mild MR. Outpatient cardiac medications include lisinopril 20 mg by mouth twice a day, Zocor 10 mg by mouth daily at bedtime, metoprolol tartrate 12.5 mg by mouth twice a day, Lasix 20 mg by mouth daily and aspirin 81 mg by mouth daily. He's been initiated on Lasix 40 mg IV push every 12 hours. Upon examination, patient is resting comfortably in bed. Does not appear to be in any discomfort acute distress. He's been quite confused according to the nursing staff. He is unaware of why he is in the hospital this time. Past Medical History Past Medical History: Diabetes Mellitus, Hyperlipidemia, Hypertension Additional Past Medical History / Comment(s): NIDDM type II, aortic aneursym, abdominal hernia, bilateral cataracts History of Any Multi-Drug Resistant Organisms: None Reported Past Surgical History: Tonsillectomy Past Anesthesia/Blood Transfusion Reactions: No Reported Reaction Past Psychological History: Depression Smoking Status: Former smoker Past Alcohol Use History: None Reported Additional Past Alcohol Use History / Comment(s): Pt states he started smoking in 1949 and quit in 2008. Past Drug Use History: None Reported - Past Family History Father Family Medical History: CVA/TIA Son(s) Additional Family Medical History / Comment(s): He has 2 sons. One has coronary artery disease and a stent placed at age 58. He has a second son with hypertension, cholesterol, diabetes. Daughter(s) Additional Family Medical History / Comment(s): He has 3 daughters. Brother(s) Additional Family Medical History / Comment(s): Patient has a total of 6 brothers and one from a myocardial infarction. One at age 84 from a bowel problem but not cancer. Sister(s) Additional Family Medical History / Comment(s): He has 4 sisters. Medications and Allergies Home Medications Medication Instructions Recorded Confirmed Type lisinopriL [Zestril] 20 mg PO BID@0900,1700 12/01/02/13/20 History Simvastatin [Zocor] 10 mg PO HS@209901/04/17 02/13/20 History Glimepiride [Amaryl] 2 mg PO BID@0900,1700 04/23/02/13/20 History ALPRAZolam [Xanax] 0.25 mg PO BID@1500,209902/13/20 02/13/20 History ALPRAZolam [Xanax] 0.25 mg PO DAILY PRN 02/13/20 02/13/20 History Acetaminophen Tab [Tylenol] 650 mg PO Q4H PRN 02/13/20 02/13/20 History Aspirin [Adult Low Dose Aspirin EC] 81 mg PO DAILY@89902/13/20 02/13/20 History Dextromethorphan HBr/Quinidine 1 cap PO BID@0900,209902/13/20 02/13/20 History [Nuedexta 20-10 mg Capsule] Donepezil [Aricept] 10 mg PO HS@209902/13/20 02/13/20 History Escitalopram [Lexapro] 20 mg PO DAILY@89902/13/20 02/13/20 History Furosemide [Lasix] 20 mg PO DAILY@89902/13/20 02/13/20 History Glucerna Shake 240 ml PO TID@1000,1400,199902/13/20 02/13/20 History Loperamide HCl [Imodium A-D] 2 - 4 mg PO QID PRN 02/13/20 02/13/20 History Melatonin 10 mg PO HS@209902/13/20 02/13/20 History Menthol-Camphor Lotion [Sarna 1 applic TOPICAL BID 02/13/20 02/13/20 History Lotion 0.5%-0.5%] Menthol-Camphor Lotion [Sarna 1 applic TOPICAL DAILY PRN 02/13/20 02/13/20 History Lotion 0.5%-0.5%] Metoprolol Tartrate 12.5 mg PO BID@899,209902/13/20 02/13/20 History Nitroglycerin Sl Tabs [Nitrostat] 0.4 mg SL Q5M PRN 02/13/20 02/13/20 History Tamsulosin HCl [Flomax] 0.4 mg PO BID@899,209902/13/20 02/13/20 History busPIRone HCL 15 mg PO BID@00,209902/13/20 02/13/20 History Allergies Allergy/AdvReac Type Severity Reaction Status Date / Time strawberry Allergy Unknown Verified 02/13/20 08:54 Physical Exam Vitals: Vital Signs Temp Pulse Pulse Pulse Resp BP BP 02/13/20 12:00 97.6 F 56 L 16 158/76 02/13/20 08:00 97.6 F 57 L 16 123/60 02/13/20 04:15 02/13/20 04:00 96.7 F L 56 L 56 L 18 159/90 02/13/20 02:29 54 L 18 169/80 02/13/20 02:00 57 L 16 156/81 02/13/20 00:00 52 L 16 160/77 02/12/20 23:49 56 L 16 149/76 02/12/20 22:02 97.5 F L 72 16 164/83 Pulse Ox 02/13/20 12:00 92 L 02/13/20 08:00 95 02/13/20 04:15 92 L 02/13/20 04:00 85 L 02/13/20 02:29 95 02/13/20 02:00 96 02/13/20 00:00 02/12/20 23:49 95 02/12/20 22:02 91 L Intake and Output 02/12/20 02/13/20 02/13/20 22:59 06:59 14:59 Other: Voiding Method Incontinent Incontinent # Bowel Movements 1 Weight 82.554 kg 82.554 kg PHYSICAL EXAMINATION: This is a 84-year-old male in no apparent distress at the time of my examination. VITAL SIGNS: Blood pressure 158/76, heart rate 56, respirations 13, temp 97.6F. Patient is 92 % on 2 L via nasal cannula. HEENT: Head is atraumatic, normocephalic. Pupils are equal, round. Sclerae anicteric. Conjunctivae are clear. Mucous membranes of the mouth are moist. Neck is supple. There is no elevated jugular venous pressure. No carotid bruit is heard. CHEST EXAMINATION: Lungs reveal diminished air entry bilaterally. No wheezes rales or rhonchi. Respirations even and nonlabored. HEART EXAMINATION: Heart regular, positive S1 and S2. No S3. No S4. No clicks, rubs or murmurs. ABDOMEN: Soft, nontender. Bowel sounds are heard. No organomegaly noted. EXTREMITIES: 2+ peripheral pulses with evidence of mild peripheral edema and no calf tenderness noted. NEUROLOGIC EXAMINATION: Patient is drowsy and oriented to person, pleasantly confused Results 02/12/20 22:46 02/12/20 22:46 Cardiac Enzymes 02/12/20 02/12/20 Range/Units 22:46 22:46 AST 33 (17-59) U/L Troponin I <0.012 (0.000-0.034) ng/mL Coagulation 02/12/20 Range/Units 22:46 PT 10.8 (9.0-12.0) sec APTT 27.3 (22.0-30.0) sec CBC 02/12/20 Range/Units 22:46 WBC 12.4 H (3.8-10.6) k/uL RBC 3.51 L (4.30-5.90) m/uL Hgb 11.2 L (13.0-17.5) gm/dL Hct 34.7 L (39.0-53.0) % Plt Count 145 L (150-450) k/uL Comprehensive Metabolic Panel 02/12/20 Range/Units 22:46 Sodium 137 (137-145) mmol/L Potassium 4.6 (3.5-5.1) mmol/L Chloride 104 (98-107) mmol/L Carbon Dioxide 28 (22-30) mmol/L BUN 33 H (9-20) mg/dL Creatinine 1.61 H (0.66-1.25) mg/dL Glucose 208 H (74-99) mg/dL Calcium 8.5 (8.4-10.2) mg/dL AST 33 (17-59) U/L ALT 29 (4-49) U/L Alkaline Phosphatase 89 (38-126) U/L Total Protein 5.5 L (6.3-8.2) g/dL Albumin 3.0 L (3.5-5.0) g/dL Current Medications Generic Name Dose Route Start Last Admin Trade Name Freq PRN Reason Stop Dose Admin Acetaminophen 650 mg 02/13/20 09:39 Tylenol Tab PO Q4H PRN Fever Aspirin 81 mg 02/14/20 09:00 Aspirin PO DAILY@0900 [facility] Atorvastatin Calcium 10 mg 02/13/20 21:00 Lipitor PO HS [facility] Buspirone HCl 15 mg 02/13/20 21:00 Buspar PO BID@0900,2100 [facility] Donepezil HCl 10 mg 02/13/20 21:00 Aricept PO HS@2100 [facility] Escitalopram Oxalate 20 mg 02/14/20 09:00 Lexapro PO DAILY@0900 [facility] Furosemide 40 mg 02/13/20 00:15 02/13/20 12:05 Lasix IV 40 mg Q12H [facility] Administration Heparin Sodium (Porcine) 5,000 unit 02/13/20 21:00 Heparin SQ Q12HR [facility] Insulin Aspart 0 unit 02/13/20 07:30 02/13/20 12:05 Novolog SQ Not Given ACHS [facility] Protocol Linagliptin 5 mg 02/13/20 09:00 02/13/20 08:56 Tradjenta PO 5 mg DAILY [facility] Administration Metoprolol Tartrate 12.5 mg 02/13/20 21:00 Lopressor PO BID@0900,2100 [facility] Nitroglycerin 0.4 mg 02/13/20 09:39 Nitrostat SUBLINGUAL Q5M PRN Chest Pain Pantoprazole Sodium 40 mg 02/14/20 07:30 Protonix PO AC-BRKFST [facility] Tamsulosin HCl 0.4 mg 02/13/20 21:00 Flomax PO BID@0900,2100 [facility] Intake and Output 08/10/20 08/11/20 08/11/20 22:59 06:59 14:59 Other: Voiding Method Incontinent Incontinent # Bowel Movements 1 Weight 82.554 kg 82.554 kg 02/12/20 22:46 02/12/20 22:46 Assessment and Plan Assessment: #1 acute hypoxic respiratory failure secondary to combination of acute on chronic diastolic congestive heart failure and bilateral pleural effusions #2 acute kidney injury on chronic kidney disease, lisinopril on hold #3 diabetes mellitus type 2 #4 metabolic encephalopathy secondary to hypoglycemia and respiratory failure #5 hypertension #6 hyperlipidemia #7 dementia Plan: From cardiology perspective, we will review 2-D echo with Doppler once completed. Continue IV Lasix. We will add hydralazine for better blood pressure control. Continue to monitor renal function, electrolytes, intake and output as well as daily weights. We will continue to follow the patient and pro vide further recommendations accordingly. FURNACE CLEANER note has been reviewed, I agree with a documented findings and plan of care. Patient was seen and examined.
--- NOTE | 2020-02-13 12:57 | ECHOF ---
Referral Reason:LVF MEASUREMENTS -------- HEIGHT: 177.8 cm WEIGHT: 82.6 kg BP: 123/60 IVSd: 2.2 cm (0.6 - 1.1) LVIDd: 4.7 cm (3.9 - 5.3) LVPWd: 2.3 cm (0.6 - 1.1) IVSs: 2.3 cm LVIDs: 3.3 cm LVPWs: 2.4 cm LAESV Index (A-L): 36.34 ml/m Ao Diam: 3.6 cm (2.0 - 3.7) AV Cusp: 2.1 cm (1.5 - 2.6) MV EXCURSION: 16.541 mm (> 18.000) MV EF SLOPE: 64 mm/s (70 - 150) EPSS: 0.8 cm MV E Sathya: 0.88 m/s MV DecT: 209 ms MV A Sathya: 1.39 m/s MV E/A Ratio: 0.63 FINDINGS -------- This was a technically difficult study with suboptimal apical views. The left ventricular size is normal. There is severe concentric left ventricular hypertrophy. Ove rall left ventricular systolic function is low-normal with, an EF between 50 - 55 %. The RV was not well visualized. LA is moderately dilated 34-39 ml/m2 The right atrium was not well visualized. 5.0mg of Lumason was utilized for enhancement of images Interatrial and interventricular septum intact. There is mild to moderate aortic valve sclerosis. There is no evidence of aortic regurgitation. T here is no evidence of aortic stenosis. [id number] mitral regurgitation is present. The tricuspid valve was not well visualized. The pulmonic valve was not well visualized. The aortic root size is normal. IVC Not well visulized. There is no pericardial effusion. CONCLUSIONS -------- 1. The left ventricular size is normal. 2. There is severe concentric left ventricular hypertrophy. 3. Overall left ventricular systolic function is low-normal with, an EF between 50 - 55 %. 4. LA is moderately dilated 34-39 ml/m2 5. There is mild to moderate aortic valve sclerosis. 6. [id number] mitral regurgitation is present. CORN SHREDDER: Lucina Key RDCS
--- NOTE | 2020-02-13 14:07 | P.CNPUL ---
History of Present Illness Consult date: 02/13/20 Reason for consult: dyspnea, pleural effusion, abnormal CXR/CT Chief complaint: Dyspnea, acute hypoxic respiratory failure History of present illness: 84-year-old white male patient, who is a resident of [facility], who is a poor historian, has a history of dementia, hypertension, hyperlipidemia, diabetes mellitus type 2, depression, former smoker, chronic medical debility who was brought into the hospital on 02/12/2020 for evaluation of low SpO2 in the low 80s, and hypertension that was noted by the nursing staff during rounds. Patient of the complaints upon arrival to the emergency department, his pulse ox on arrival to the ER was 86% on room air, patient denied any shortness of breath, chest pain, no fever or chills. Was placed on supplemental oxygen, chest x-ray was completed showing enlarged heart, pulmonary edema, some blunting the costophrenic angles consistent with pleural effusions and fluid in the major fissures. EKG showed sinus bradycardia, with evidence of biatrial enlargement, and nonspecific ST and T-wave abnormality. Labs were reviewed showing a blood cell count of 12.4, hemoglobin of 11.2, INR is 1.1, electrolytes are within normal limits, BUN was 33, creatinine is 1.6, plasma lactic acid was 1.0, LFTs were within normal limits, troponin was less than 0.012, proBNP was 5310. Patient is currently on 2 L of oxygen his pulse ox is 92%, hemodynamically he is stable, he has no specific complaints, echocardiogram has been completed and the results are pending at this time, as been afebrile. He was started on IV Lasix at 40 mg every 12 hours. The pleural effusions seen on the chest x-ray are small and did not require thoracentesis, we'll continue current medical management and IV diuretics. Review of Systems All systems: negative Constitutional: Denies chills, Denies fever Eyes: denies blurred vision, denies pain Ears, nose, mouth and throat: Denies headache, Denies sore throat Cardiovascular: Denies chest pain, Denies shortness of breath Respiratory: Reports dyspnea, Denies cough Gastrointestinal: Denies abdominal pain, Denies diarrhea, Denies nausea, Denies vomiting Musculoskeletal: Denies myalgias Integumentary: Denies pruritus, Denies rash Neurological: Reports gait dysfunction, Reports memory loss, Denies numbness, Denies weakness Psychiatric: Denies anxiety, Denies depression Endocrine: Denies fatigue, Denies weight change Past Medical History Past Medical History: Diabetes Mellitus, Hyperlipidemia, Hypertension Additional Past Medical History / Comment(s): NIDDM type II, aortic aneursym, abdominal hernia, bilateral cataracts History of Any Multi-Drug Resistant Organisms: None Reported Past Surgical History: Tonsillectomy Past Anesthesia/Blood Transfusion Reactions: No Reported Reaction Past Psychological History: Depression Smoking Status: Former smoker Past Alcohol Use History: None Reported Additional Past Alcohol Use History / Comment(s): Pt states he started smoking in 1949 and quit in 2008. Past Drug Use History: None Reported - Past Family History Father Family Medical History: CVA/TIA Son(s) Additional Family Medical History / Comment(s): He has 2 sons. One has coronary artery disease and a stent placed at age 58. He has a second son with hypertension, cholesterol, diabetes. Daughter(s) Additional Family Medical History / Comment(s): He has 3 daughters. Brother(s) Additional Family Medical History / Comment(s): Patient has a total of 6 brothers and one from a myocardial infarction. One at age 84 from a bowel problem but not cancer. Sister(s) Additional Family Medical History / Comment(s): He has 4 sisters. Medications and Allergies Home Medications Medication Instructions Recorded Confirmed Type lisinopriL [Zestril] 20 mg PO BID@0900,1700 12/01/02/13/20 History Simvastatin [Zocor] 10 mg PO HS@209901/04/17 02/13/20 History Glimepiride [Amaryl] 2 mg PO BID@0900,1700 04/23/02/13/20 History ALPRAZolam [Xanax] 0.25 mg PO BID@1500,209902/13/20 02/13/20 History ALPRAZolam [Xanax] 0.25 mg PO DAILY PRN 02/13/20 02/13/20 History Acetaminophen Tab [Tylenol] 650 mg PO Q4H PRN 02/13/20 02/13/20 History Aspirin [Adult Low Dose Aspirin EC] 81 mg PO DAILY@0900 02/13/20 02/13/20 History Dextromethorphan HBr/Quinidine 1 cap PO BID@09,209902/13/20 02/13/20 History [Nuedexta 20-10 mg Capsule] Donepezil [Aricept] 10 mg PO HS@209902/13/20 02/13/20 History Escitalopram [Lexapro] 20 mg PO DAILY@89902/13/20 02/13/20 History Furosemide [Lasix] 20 mg PO DAILY@89902/13/20 02/13/20 History Glucerna Shake 240 ml PO TID@1000,1400,199902/13/20 02/13/20 History Loperamide HCl [Imodium A-D] 2 - 4 mg PO QID PRN 02/13/20 02/13/20 History Melatonin 10 mg PO HS@209902/13/20 02/13/20 History Menthol-Camphor Lotion [Sarna 1 applic TOPICAL BID 02/13/20 02/13/20 History Lotion 0.5%-0.5%] Menthol-Camphor Lotion [Sarna 1 applic TOPICAL DAILY PRN 02/13/20 02/13/20 His tory Lotion 0.5%-0.5%] Metoprolol Tartrate 12.5 mg PO BID@899,209902/13/20 02/13/20 History Nitroglycerin Sl Tabs [Nitrostat] 0.4 mg SL Q5M PRN 02/13/20 02/13/20 History Tamsulosin HCl [Flomax] 0.4 mg PO BID@0900,209902/13/20 02/13/20 History busPIRone HCL 15 mg PO BID@0900,209902/13/20 02/13/20 History Allergies Allergy/AdvReac Type Severity Reaction Status Date / Time strawberry Allergy Unknown Verified 02/13/20 08:54 Physical Exam Vitals: Vital Signs Temp Pulse Pulse Pulse Resp BP BP 02/13/20 12:00 97.6 F 56 L 16 158/76 02/13/20 08:00 97.6 F 57 L 16 123/60 02/13/20 04:15 02/13/20 04:00 96.7 F L 56 L 56 L 18 159/90 02/13/20 02:29 54 L 18 169/80 02/13/20 02:00 57 L 16 156/81 02/13/20 00:00 52 L 16 160/77 02/12/20 23:49 56 L 16 149/76 02/12/20 22:02 97.5 F L 72 16 164/83 Pulse Ox 02/13/20 12:00 92 L 02/13/20 08:00 95 02/13/20 04:15 92 L 02/13/20 04:00 85 L 02/13/20 02:29 95 02/13/20 02:00 96 02/13/20 00:00 02/12/20 23:49 95 02/12/20 22:02 91 L Intake and Output 02/12/20 02/13/20 02/13/20 22:59 06:59 14:59 Other: Voiding Method Incontinent Incontinent # Bowel Movements 1 Weight 82.554 kg 82.554 kg GENERAL EXAM: Alert, 84-year-old white male, resting in bed, on 2 L of oxygen, pleasant, however he is a poor historian, he is only oriented to self, and place, does have underlying history of dementia comfortable in no apparent distress. HEAD: Normocephalic/atraumatic. EYES: Normal reaction of pupils, equal size. Conjunctiva pink, sclera white. NOSE: Clear with pink turbinates. THROAT: No erythema or exudates. NECK: No masses, no JVD, no thyroid enlargement, no adenopathy. CHEST: No chest wall deformity. Symmetrical expansion. LUNGS: Equal air entry with mild crackles at the right base, diminished breath sounds overall, no wheeze, no rhonchi or dullness. CVS: Regular rate and rhythm, normal S1 and S2, no gallops, no murmurs, no rubs ABDOMEN: Soft, nontender. No hepatosplenomegaly, normal bowel sounds, no guarding or rigidity. EXTREMITIES: No clubbing, mild peripheral edema, no cyanosis, 2+ pulses and upper and lower extremities. MUSCULOSKELETAL: Muscle strength and tone normal. SPINE: No scoliosis or deformity SKIN: No rashes CENTRAL NERVOUS SYSTEM: Alert and oriented -2. No focal deficits, tone is normal in all 4 extremities. PSYCHIATRIC: Alert and oriented -2. Results - Laboratory Findings CBC and BMP: 02/12/20 22:46 02/12/20 22:46 PT/INR, D-dimer PT 10.8 sec (9.0-12.0) 02/12/20 22:46 INR 1.1 (<1.2) 02/12/20 22:46 Abnormal lab findings: Abnormal Labs 02/12/20 02/12/20 02/13/20 22:46 22:46 06:06 WBC 12.4 H RBC 3.51 L Hgb 11.2 L Hct 34.7 L Plt Count 145 L Neutrophils # 9.9 H BUN 33 H Creatinine 1.61 H Glucose 208 H POC Glucose (mg/dL) 111 H Total Protein 5.5 L Albumin 3.0 L - Diagnostic Findings Chest x-ray: report reviewed, image reviewed Additional studies: Echocardiogram reviewed, EKG reviewed Assessment and Plan Plan: Assessment: #1. Acute hypoxic respiratory failure related to acute exacerbation of chronic congestive heart failure, with diastolic dysfunction, echocardiogram was completed on 02/13/2020 showing severe LVH, and EF of 50-55%, [id number] aortic sclerosis, no evidence of aortic regurgitation, no evidence of aortic stenosis, mild to moderate mitral regurg, tricuspid and pulmonic valve not well visualized. #2. Small bilateral pleural effusions, pulmonary edema, related to the above, continue medical treatment #3. Hypertension #4. Hyperlipidemia #5. Underlying history of dementia #6. History of aortic aneurysm #7. Diabetes mellitus type 2 #8. Acute kidney injury #9. Chronic kidney disease stage III #10. Depression #11. Chronic medical debility, patient is a resident of a local [facility] Plan: Continue IV diuretics, chest x-ray has been reviewed showing pulmonary edema, small bilateral pleural effusions, no plans for thoracentesis. Echocardiogram has been noted, cardiology is following, repeat chest x-ray in the morning, monitor electrolytes and renal profile, we'll continue to follow I performed a history & physical examination of the patient and discussed their management with my nurse practitioner, Oma Stark. I reviewed the nurse practitioner's note and agree with the documented findings and plan of care. Lung sounds are positive for diminished breath sounds. The findings and the impression was discussed with the patient. I attest to the documentation by the nurse practitioner. Time with Patient: Greater than 30
[2020-02-13 17:54] LABS: Glucose,Whole Blood 103 mg/dL (75-99)
[2020-02-13 20:37] LABS: Glucose,Whole Blood 103 mg/dL (75-99)
[2020-02-13] MEDS ORDERED: GLIMEPIRIDE 2 MG TAB PO SCH (21:00)
[2020-02-13] MEDS: TAMSULOSIN 0.4 MG CAP.ER.24H PO SCH (22:22)
[2020-02-13] MEDS: METOPROLOL TARTRATE 12.5 MG TAB PO SCH (22:22)
[2020-02-13] MEDS: HEPARIN SODIUM,PORCINE 5,000 UNIT/ML 1 ML VIAL SQ SCH (22:22)
[2020-02-13] MEDS: ATORVASTATIN 10 MG TAB PO SCH (22:22)
[2020-02-13] MEDS: hydrALAZINE HCL 50 MG TAB PO SCH (22:22)
[2020-02-13] MEDS: busPIRone HCl 5 MG TAB PO SCH (22:23)
[2020-02-13] MEDS: DONEPEZIL 10 MG TAB PO SCH (22:23)
[2020-02-14] MEDS ORDERED: ASPIRIN 325 MG TAB PO SCH (00:02)
[2020-02-14] MEDS: FUROSEMIDE 10 MG/ML 4 ML VIAL IV SCH (00:27)
[2020-02-14] MEDS: LORazepam 2 MG/ML INJ IV PRN ×2 (02:13→09:40)
[2020-02-14 06:20] LABS: Glucose,Whole Blood 114 mg/dL (75-99)
[2020-02-14] MEDS: PANTOPRAZOLE 40 MG TABLET PO SCH (06:23)
[2020-02-14] MEDS: INSULIN ASPART (NovoLOG) 100 UNIT/ML VIAL SQ SCH ×4 (06:23→21:07)
[2020-02-14 07:42] LABS: HGB 11.5 gm/dL (13.0-17.5); MCH 30.9 pg (25.0-35.0); MCHC 31.2 g/dL (31.0-37.0); MCV 99.1 fL (80.0-100.0); Mean Platelet Volume 8.9; Platelet Count 186 k/uL (150-450); RBC 3.73 m/uL (4.30-5.90); RDW 14.1 % (11.5-15.5); WBC 14.3 k/uL (3.8-10.6)
[2020-02-14 08:05] LABS: Albumin 3.3 g/dL (3.5-5.0); Calcium 8.9 mg/dL (8.4-10.2); Potassium 4.3 mmol/L (3.5-5.1)
[2020-02-14] MEDS ORDERED: ALPRAZolam 0.25 MG TAB PO PRN (09:12)
[2020-02-14] MEDS: busPIRone HCl 5 MG TAB PO SCH ×2 (09:16→21:06)
[2020-02-14] MEDS: METOPROLOL TARTRATE 12.5 MG TAB PO SCH ×2 (09:16→21:06)
[2020-02-14] MEDS: hydrALAZINE HCL 50 MG TAB PO SCH ×2 (09:16→21:06)
[2020-02-14] MEDS: LINAGLIPTIN 5 MG TABLET PO SCH (09:16)
[2020-02-14] MEDS: ESCITALOPRAM 20 MG TAB PO SCH (09:16)
[2020-02-14] MEDS: ASPIRIN 81 MG PO SCH (09:16)
[2020-02-14] MEDS: TAMSULOSIN 0.4 MG CAP.ER.24H PO SCH ×2 (09:16→21:06)
[2020-02-14] MEDS: HEPARIN SODIUM,PORCINE 5,000 UNIT/ML 1 ML VIAL SQ SCH ×2 (09:16→21:06)
[2020-02-14 11:40] VITALS: BMI 24.6
[2020-02-14 12:55] LABS: Glucose,Whole Blood 107 mg/dL (75-99)
--- NOTE | 2020-02-14 13:13 | P.PN ---
Subjective Progress Note Date: 02/14/20 CHIEF COMPLAINT: Heart failure HISTORY OF PRESENT ILLNESS: Patient examined this morning at the bedside. He remains confused. He appears comfortable and does not appear to be in any distress. He has a enforcement safety officer present. She reports patient has been combat anthony at times this morning. Patient's vital signs remain stable. Heart rate in the 70s. Creatinine increased today to 1.80 from 1.61. PHYSICAL EXAM: VITAL SIGNS: Reviewed. GENERAL: Well-developed in no acute distress. NECK: Supple. No JVD or thyromegaly LUNGS: Respirations even and unlabored. Lungs essentially clear to auscultation bilaterally. HEART: Regular rate and rhythm. S1 and S2 heard. EXTREMITIES: Normal range of motion. No clubbing or cyanosis. Peripheral pu lses intact. No lower extremity edema ASSESSMENT: #1 acute hypoxic respiratory failure secondary to combination of acute on chronic diastolic congestive heart failure and bilateral pleural effusions #2 acute kidney injury on chronic kidney disease, lisinopril on hold #3 diabetes mellitus type 2 #4 metabolic encephalopathy secondary to hypoglycemia and respiratory failure #5 hypertension #6 hyperlipidemia #7 dementia PLAN: -Discontinue IV Lasix -Begin oral Lasix 40 mg twice a day -Monitor kidney function -Accurate I&O and daily weights -Continue hydralazine. Lisinopril on hold secondary to renal function Nurse practitioner note has been reviewed by physician. Signing provider agrees with the documented findings, assessment, and plan of care. Objective - Vital Signs Vital signs: Vital Signs Temp 97 F L 02/14/20 12:00 Pulse 68 02/14/20 12:00 Resp 18 02/14/20 12:00 BP 148/72 02/14/20 12:00 Pulse Ox 98 02/14/20 12:00 Intake & Output 02/13/20 02/14/20 02/14/20 18:59 06:59 18:59 Intake Total 120 Output Total 700 Balance -580 Weight 78 kg 78 kg Intake: Oral 120 Output: Urine 700 Other: Voiding Method Incontinent # Voids 1 1 # Bowel Movements 1 - Labs CBC & Chem 7: 02/14/20 07:06 02/14/20 07:06 Labs: Abnormal Lab Results - Last 24 Hours (Table) 02/13/20 02/13/20 02/14/20 Range/Units 17:53 20:35 06:18 WBC (3.8-10.6) k/uL RBC (4.30-5.90) m/uL Hgb (13.0-17.5) gm/dL Hct (39.0-53.0) % BUN (9-20) mg/dL Creatinine (0.66-1.25) mg/dL Glucose (74-99) mg/dL POC Glucose (mg/dL) 103 H 103 H 114 H (75-99) mg/dL Total Protein (6.3-8.2) g/dL Albumin (3.5-5.0) g/dL 02/14/20 02/14/20 02/14/20 Range/Units 07:06 07:06 12:52 WBC 14.3 H (3.8-10.6) k/uL RBC 3.73 L (4.30-5.90) m/uL Hgb 11.5 L (13.0-17.5) gm/dL Hct 37.0 L (39.0-53.0) % BUN 35 H (9-20) mg/dL Creatinine 1.80 H (0.66-1.25) mg/dL Glucose 103 H (74-99) mg/dL POC Glucose (mg/dL) 107 H (75-99) mg/dL Total Protein 6.0 L (6.3-8.2) g/dL Albumin 3.3 L (3.5-5.0) g/dL
--- NOTE | 2020-02-14 13:21 | P.PN ---
Subjective Progress Note Date: 02/14/20 Principal diagnosis: Dyspnea, acute hypoxic respiratory failure 84-year-old white male patient, who is a resident of [facility], who is a poor historian, has a history of dementia, hypertension, hyperlipidemia, diabetes mellitus type 2, depression, former smoker, chronic medical debility who was brought into the hospital on 02/12/2020 for evaluation of low SpO2 in the low 80s, and hypertension that was noted by the nursing staff during rounds. Patient of the complaints upon arrival to the emergency department, his pulse ox on arrival to the ER was 86% on room air, patient denied any shortness of breath, chest pain, no fever or chills. Was placed on supplemental oxygen, ches t x-ray was completed showing enlarged heart, pulmonary edema, some blunting the costophrenic angles consistent with pleural effusions and fluid in the major fissures. EKG showed sinus bradycardia, with evidence of biatrial enlargement, and nonspecific ST and T-wave abnormality. Labs were reviewed showing a blood cell count of 12.4, hemoglobin of 11.2, INR is 1.1, electrolytes are within normal limits, BUN was 33, creatinine is 1.6, plasma lactic acid was 1.0, LFTs were within normal limits, troponin was less than 0.012, proBNP was 5310. Patient is currently on 2 L of oxygen his pulse ox is 92%, hemodynamically he is stable, he has no specific complaints, echocardiogram has been completed and the results are pending at this time, as been afebrile. He was started on IV Lasix at 40 mg every 12 hours. The pleural effusions seen on the chest x-ray are small and did not require thoracentesis, we'll continue current medical management and IV diuretics. On 02/14/2020 patient seen in follow-up on selective care unit, he is resting quietly in bed, remains confused, apparently last night he got also very restless, he pulled out his Shine catheter there was significant amount of hematuria, and Shine catheter was not placed back in. breathing comfortable, he is on 2 L of oxygen right now with a pulse ox of 98%, will Probably further wean off the supplemental oxygen, he is afebrile, denies any chest pain, vital signs are stable, patient continues on diuretics, he has been transitioned to oral Lasix today, he has diuresed, his weight is down by 4.5 kg since admission. No lower extremity edema, lung sounds reveal some mild crackles at the bases, no rhonchi or wheezing. Objective - Vital Signs Vital signs: Vital Signs Temp 97 F L 02/14/20 12:00 Pulse 68 02/14/20 12:00 Resp 18 02/14/20 12:00 BP 148/72 02/14/20 12:00 Pulse Ox 98 02/14/20 12:00 Intake & Output 02/13/20 02/14/20 02/14/20 18:59 06:59 18:59 Intake Total 120 Output Total 700 Balance -580 Weight 78 kg 78 kg Intake: Oral 120 Output: Urine 700 Other: Voiding Method Incontinent # Voids 1 1 # Bowel Movements 1 - Exam GENERAL EXAM: Alert, 84-year-old white male, resting in bed, on 2 L of oxygen, pleasant, however he is a poor historian, he is only oriented to self, and place, does have underlying history of dementia comfortable in no apparent distress. HEAD: Normocephalic/atraumatic. EYES: Normal reaction of pupils, equal size. Conjunctiva pink, sclera white. NOSE: Clear with pink turbinates. THROAT: No erythema or exudates. NECK: No masses, no JVD, no thyroid enlargement, no adenopathy. CHEST: No chest wall deformity. Symmetrical expansion. LUNGS: Equal air entry with mild crackles at the right base, diminished breath sounds overall, no wheeze, no rhonchi or dullness. CVS: Regular rate and rhythm, normal S1 and S2, no gallops, no murmurs, no rubs ABDOMEN: Soft, nontender. No hepatosplenomegaly, normal bowel sounds, no guarding or rigidity. EXTREMITIES: No clubbing, mild peripheral edema, no cyanosis, 2+ pulses and upper and lower extremities. MUSCULOSKELETAL: Muscle strength and tone normal. SPINE: No scoliosis or deformity SKIN: No rashes CENTRAL NERVOUS SYSTEM: Alert and oriented -2. No focal deficits, tone is normal in all 4 extremities. PSYCHIATRIC: Alert and oriented -2. - Labs CBC & Chem 7: 02/14/20 07:06 02/14/20 07:06 Labs: Abnormal Lab Results - Last 24 Hours (Table) 02/13/20 02/13/20 02/14/20 Range/Units 17:53 20:35 06:18 WBC (3.8-10.6) k/uL RBC (4.30-5.90) m/uL Hgb (13.0-17.5) gm/dL Hct (39.0-53.0) % BUN (9-20) mg/dL Creatinine (0.66-1.25) mg/dL Glucose (74-99) mg/dL POC Glucose (mg/dL) 103 H 103 H 114 H (75-99) mg/dL Total Protein (6.3-8.2) g/dL Albumin (3.5-5.0) g/dL 02/14/20 02/14/20 02/14/20 Range/Units 07:06 07:06 12:52 WBC 14.3 H (3.8-10.6) k/uL RBC 3.73 L (4.30-5.90) m/uL Hgb 11.5 L (13.0-17.5) gm/dL Hct 37.0 L (39.0-53.0) % BUN 35 H (9-20) mg/dL Creatinine 1.80 H (0.66-1.25) mg/dL Glucose 103 H (74-99) mg/dL POC Glucose (mg/dL) 107 H (75-99) mg/dL Total Protein 6.0 L (6.3-8.2) g/dL Albumin 3.3 L (3.5-5.0) g/dL Assessment and Plan Plan: Assessment: #1. Acute hypoxic respiratory failure related to acute exacerbation of chronic congestive heart failure, with diastolic dysfunction, echocardiogram was completed on 02/13/2020 showing severe LVH, and EF of 50-55%, [id number] aortic sclerosis, no evidence of aortic regurgitation, no evidence of aortic stenosis, mild to moderate mitral regurg, tricuspid and pulmonic valve not well visualized. Hypoxemia improved with diuresis, and patient is currently down to 2 L of oxygen, with a pulse ox of 98% #2. Small bilateral pleural effusions, pulmonary edema, related to the above, continue medical treatment #3. Hypertension #4. Hyperlipidemia #5. Underlying history of dementia #6. History of aortic aneurysm #7. Diabetes mellitus type 2 #8. Acute kidney injury #9. Chronic kidney disease stage III #10. Depression #11. Chronic medical debility, patient is a resident of a local F #12. Hospital-acquired delirium on top of underlying dementia, with agitation and restlessness, and patient pulled out his indwelling catheter Plan: Follow-up chest x-ray today, continue weaning FiO2, breathing comfortably, fluid volume status is improving, IV Lasix has been transitioned to oral Lasix, no acute events overnight other than restlessness, increased confusion, food safety manager is at the bedside, maintain safety precautions. Stable for discharge back to the ECF in the next 24 hours if continues to be stable I performed a history & physical examination of the patient and discussed their management with my nurse practitioner, Oma Stark. I reviewed the nurse practitioner's note and agree with the documented findings and plan of care. Lung sounds are positive for diminished breath sounds. The findings and the impression was discussed with the patient. I attest to the documentation by the nurse practitioner. Time with Patient: Less than 30
[2020-02-14] MEDS: FUROSEMIDE 40 MG TAB PO SCH (15:15)
[2020-02-14] MEDS: ALPRAZolam 0.25 MG TAB PO SCH ×2 (15:15→21:06)
--- NOTE | 2020-02-14 15:28 | P.PN ---
Subjective Progress Note Date: 02/14/20 History of Present Illness This is an 84-year-old male patient of Dr. Mcadams residing at [facility] with past medical history of diabetes mellitus type 2, hypertension, hyperl ipidemia, dementia, aortic aneurysm. Patient was found by nursing staff to have a low pulse ox and was sent into [facility] emergency center for evaluation. Chest x-ray reveals congestive heart failure with pleural effusions. Pulse ox 85% on room air, afebrile, heart rate in the 50s, blood pressure 164/83. Blood work revealed WBC 12.4, hemoglobin 11.2, platelet count 145. Electrolytes normal, BUN 33 and creatinine 1.61 with baseline around 1. Blood sugar was initially 38. Liver function tests normal. Troponin negative. ProBNP 5310. EKG sinus rhythm at rate of 58. Patient was started on Lasix 40 mg IV every 12 hours and admitted to the cardiac stepdown unit, consults with cardiology for heart failure and pulmonary medicine for pleural effusions. 02/13: Patient has a health and safety instructor at the bedside regarding. Physician called during the night for worsening confusion and Ativan IV was ordered. Xanax will be resumed. Patient had a Shine catheter placed last night and has been very confused trying to pull this out all through the night. Shine catheter will be discontinued. Patient is currently on Lasix 40 mg IV every 12 hours and will be transitioned to oral Lasix. Repeat blood work reveals Yvonne BC 14.3, hemoglobin 11.5, platelet count 186. Electrolytes normal, BUN 35 and creatinine 1.8. Weight is down 4 kg since admission. Echocardiogram reveals EF of 50-55% with mild to moderate aortic sclerosis, mild to moderate mitral regurgitation. Severe concentric left ventricular hypertrophy. Patient is followed by pulmonary medicine and cardiology. Review of Systems Unable to obtain due to dementia Physical Examination Gen: This is an 84-year-old male. Patient is resting on the ER stretcher and appears to be comfortable and in no acute distress. No respiratory distress noted at rest. HEENT: Head is atraumatic, normocephalic. Pupils equal, round. Sclerae is anicteric. NECK: Supple. No JVD. No lymphadenopathy. No thyromegaly. LUNGS: Diminished bilaterally. No wheezes. No intercostal retractions. HEART: Regular rate and rhythm. No murmur. ABDOMEN: Soft. Bowel sounds are present. No masses. No tenderness. EXTREMITIES: 2+ bilateral pedal edema. No calf tenderness. Dorsalis pedis palpable bilaterally. NEUROLOGICAL: Patient is awake and oriented to person, pleasantly confused. Generalized weakness with no focal neural deficits.. Assessment and Plan 1. Acute hypoxic respiratory failure secondary to a combination of acute on chronic heart failure, pleural effusions. Patient started on Lasix 40 mg iv every 12 hours and transition to oral, I&O and daily weights, daily lab work to monitor electrolytes and renal function. Consult with cardiology and pulmonary medicine appreciated. Echocardiogram as above. 2. Acute kidney injury with chronic kidney disease stage III. Lisinopril discontinued. Recheck electrolytes in the morning. Avoid nephrotoxic agents. 3. Metabolic encephalopathy secondary to hypoglycemia, respiratory failure. Metformin and glimepiride discontinued. Continue Tradjenta 5 mg daily, NovoLog scale before meals and at bedtime. Resume home dose of Xanax 4. Diabetes mellitus type 2. Metformin and glimepiride discontinued. Continue Tradjenta 5 mg daily, NovoLog scale before meals and at bedtime. 5. Hypertension. Continue Lopressor 12.5 mg twice daily, hold lisinopril. 6. Hyperlipidemia. Continue Lipitor 10 mg at bedtime. 7. Dementia. Continue Aricept 10 mg at bedtime. 8. Recurrent depression and generalized anxiety disorder. Continue Lexapro 20 mg daily, BuSpar 15 mg twice daily. Hold Xanax. 9. Benign prostatic hypertrophy. Continue Flomax or 0.4 mg twice daily. 10. GI prophylaxis. Protonix. 11. DVT prophylaxis. Heparin subcu area COVID-19 testing required prior to discharge to [facility]. CODE STATUS: no code Discharge plan: Return to [facility] Impression and plan of care have been directed as dictated by the signing physician. Mena Gallardo nurse practitioner acting as scribe for signing physician. Objective - Vital Signs Vital signs: Vital Signs Temp 97.8 F 02/14/20 04:20 Pulse 74 02/14/20 04:20 Resp 20 02/14/20 04:20 BP 154/72 02/14/20 04:20 Pulse Ox 95 02/14/20 04:20 Intake & Output 02/13/20 02/14/20 02/14/20 18:59 06:59 18:59 Intake Total 120 Output Total 700 Balance -580 Weight 78 kg Intake: Oral 120 Output: Urine 700 Other: Voiding Method Incontinent # Voids 1 1 # Bowel Movements 1 - Labs CBC & Chem 7: 02/14/20 07:06 02/14/20 07:06 Labs: Abnormal Lab Results - Last 24 Hours (Table) 02/13/20 02/13/20 02/14/20 Range/Units 17:53 20:35 06:18 WBC (3.8-10.6) k/uL RBC (4.30-5.90) m/uL Hgb (13.0-17.5) gm/dL Hct (39.0-53.0) % BUN (9-20) mg/dL Creatinine (0.66-1.25) mg/dL Glucose (74-99) mg/dL POC Glucose (mg/dL) 103 H 103 H 114 H (75-99) mg/dL Total Protein (6.3-8.2) g/dL Albumin (3.5-5.0) g/dL 02/14/20 02/14/20 Range/Units 07:06 07:06 WBC 14.3 H (3.8-10.6) k/uL RBC 3.73 L (4.30-5.90) m/uL Hgb 11.5 L (13.0-17.5) gm/dL Hct 37.0 L (39.0-53.0) % BUN 35 H (9-20) mg/dL Creatinine 1.80 H (0.66-1.25) mg/dL Glucose 103 H (74-99) mg/dL POC Glucose (mg/dL) (75-99) mg/dL Total Protein 6.0 L (6.3-8.2) g/dL Albumin 3.3 L (3.5-5.0) g/dL
[2020-02-14 17:07] LABS: Glucose,Whole Blood 143 mg/dL (75-99)
[2020-02-14 20:42] LABS: Glucose,Whole Blood 64 mg/dL (75-99)
[2020-02-14] MEDS: ATORVASTATIN 10 MG TAB PO SCH (21:00)
[2020-02-14] MEDS: DONEPEZIL 10 MG TAB PO SCH (21:06)
[2020-02-14 21:08] LABS: Glucose,Whole Blood 86 mg/dL (75-99)
[2020-02-14 21:32] VITALS: RESP 16
[2020-02-15] MEDS: LORazepam 2 MG/ML INJ IV PRN ×2 (01:49→07:19)
[2020-02-15 02:02] LABS: Glucose,Whole Blood 84 mg/dL (75-99)
[2020-02-15 05:58] LABS: Glucose,Whole Blood 89 mg/dL (75-99)
[2020-02-15] MEDS: PANTOPRAZOLE 40 MG TABLET PO SCH ×2 (06:10→07:20)
[2020-02-15] MEDS: INSULIN ASPART (NovoLOG) 100 UNIT/ML VIAL SQ SCH ×2 (06:10→12:08)
[2020-02-15 06:16] LABS: Calcium 8.7 mg/dL (8.4-10.2)
[2020-02-15] MEDS: hydrALAZINE HCL 50 MG TAB PO SCH (07:19)
[2020-02-15] MEDS: busPIRone HCl 5 MG TAB PO SCH (07:19)
[2020-02-15] MEDS: HEPARIN SODIUM,PORCINE 5,000 UNIT/ML 1 ML VIAL SQ SCH (07:20)
[2020-02-15] MEDS: LINAGLIPTIN 5 MG TABLET PO SCH (07:20)
[2020-02-15] MEDS: TAMSULOSIN 0.4 MG CAP.ER.24H PO SCH (07:20)
[2020-02-15] MEDS: ASPIRIN 81 MG PO SCH (07:20)
[2020-02-15 07:57] VITALS: PULSE 77
[2020-02-15 07:58] VITALS: BP 144/78; TEMP 98.1
--- NOTE | 2020-02-15 08:49 | XR ---
EXAMINATION TYPE: XR chest 1V portable DATE OF EXAM: 02/15/2020 COMPARISON: 02/12/2020 HISTORY: Follow-up CHF TECHNIQUE: Single frontal view of the chest is obtained. FINDINGS: Bilateral consolidation and pleural effusion with coarsened interstitium and cardiomegaly. Arthropathy of the shoulders. No pneumothorax. IMPRESSION: 1. Persistent changes of CHF with bilateral effusion greater on the right. Correlate clinically to ex clude pneumonia.
[2020-02-15] MEDS: METOPROLOL TARTRATE 12.5 MG TAB PO SCH (08:58)
[2020-02-15] MEDS: FUROSEMIDE 40 MG TAB PO SCH (08:58)
[2020-02-15] MEDS: ESCITALOPRAM 20 MG TAB PO SCH (08:58)
[2020-02-15] MEDS ORDERED: FUROSEMIDE 10 MG/ML 4 ML VIAL IV SCH (09:00)
--- NOTE | 2020-02-15 11:33 | P.PN ---
Subjective Progress Note Date: 02/15/20 CHIEF COMPLAINT: Heart failure HISTORY OF PRESENT ILLNESS: Patient examined this morning at the bedside. He remains confused. He appears comfortable and does not appear to be in any distress. He has a product safety manager present. Vital signs are stable. Heart rate in the 70s. Creatinine 1.92. PHYSICAL EXAM: VITAL SIGNS: Reviewed. GENERAL: Well-developed in no acute distress. NECK: Supple. No JVD or thyromegaly LUNGS: Respirations even and unlabored. Lungs essentially clear to auscultation bilaterally. HEART: Regular rate and rhythm. S1 and S2 heard. EXTREMITIES: Normal range of motion. No clubbing or cyanosis. Peripheral pulses intact. No lower extremity edema ASSESSMENT: #1 acute hypoxic respiratory failure secondary to combination of acute on chronic diastolic congestive heart failure and bilateral pleural effusions #2 acute kidney injury on chronic kidney disease, lisinopril on hold #3 diabetes mellitus type 2 #4 metabolic encephalopathy secondary to hypoglycemia and respiratory failure #5 hypertension #6 hyperlipidemia #7 dementia PLAN: -Continue oral lasix -Monitor kidney function -Accurate I&O and daily weights -Continue hydralazine -Continue to hold lisinopril secondary to elevated creatinine -Patient is stable from a cardiac perspective. We will sign off. Please re- consult if needed. Nurse practitioner note has been reviewed by physician. Signing provider agrees with the documented findings, assessment, and plan of care. Objective - Vital Signs Vital signs: Vital Signs Temp 98.1 F 02/15/20 07:57 Pulse 77 02/15/20 07:57 Resp 16 02/15/20 07:57 BP 144/78 02/15/20 07:57 Pulse Ox 94 L 02/15/20 07:57 Intake & Output 02/14/20 02/15/20 02/15/20 18:59 06:59 18:59 Intake Total 0 480 118 Output Total 150 325 1 Balance -150 155 117 Weight 78 kg 75.5 kg Intake: Oral 0 480 118 Output: Urine 150 325 1 Straight 150 Other: Voiding Method Incontinent Incontinent # Voids 1 2 1 # Bowel Movements 1 1 - Labs CBC & Chem 7: 02/14/20 07:06 02/15/20 05:43 Labs: Abnormal Lab Results - Last 24 Hours (Table) 02/14/20 02/14/20 02/14/20 Range/Units 12:52 17:06 20:41 Carbon Dioxide (22-30) mmol/L BUN (9-20) mg/dL Creatinine (0.66-1.25) mg/dL POC Glucose (mg/dL) 107 H 143 H 64 L (75-99) mg/dL 02/15/20 Range/Units 05:43 Carbon Dioxide 31 H (22-30) mmol/L BUN 37 H (9-20) mg/dL Creatinine 1.92 H (0.66-1.25) mg/dL POC Glucose (mg/dL) (75-99) mg/dL
--- NOTE | 2020-02-15 11:59 | P.DS ---
Providers Date of admission: 02/13/20 00:03 Expected date of discharge: 02/15/20 Attending physician: Daniel Franco Consults: 02/13/20 09:38 Consult Physician Routine Consulting Provider: Benja Yang Consult Reason/Comments: CHF, pleural effusions Do you want consulting provider notified?: Yes Consult Physician Routine Consulting Provider: Opal Grayson Consult Reason/Comments: chf Do you want consulting provider notified?: Yes Primary care physician: Roula Mcadams [facility] Course: History of Present Illness This is an 84-year-old male patient of Dr. Mcadams residing at [facility] with past medical history of diabetes mellitus type 2, hypertension, hyperlipidemia, dementia, aortic aneurysm. Patient was found by nursing staff to have a low pulse ox and was sent into [facility] emergency center for evaluation. Chest x-ray reveals congestive heart failure with pleural effusions. Pulse ox 85% on room air, afebrile, heart rate in the 50s, blood pressure 164/83. Blood work revealed WBC 12.4, hemoglobin 11.2, platelet count 145. Electrolytes normal, BUN 33 and creatinine 1.61 with baseline around 1. Blood sugar was initially 38. Liver function tests normal. Troponin negative. ProBNP 5310. EKG sinus rhythm at rate of 58. Patient was started on Lasix 40 mg IV every 12 hours and admitted to the cardiac stepdown unit, consults with cardiology for heart failure and pulmonary medicine for pleural effusions. 02/13: Patient has a public safety police at the bedside regarding. Physician called during the night for worsening confusion and Ativan IV was ordered. Xanax will be resumed. Patient had a Shine catheter placed last night and has been very confused trying to pull this out all through the night. Shine catheter will be discontinued. Patient is currently on Lasix 40 mg IV every 12 hours and will be transitioned to oral Lasix. Repeat blood work reveals Yvonne BC 14.3, hemoglobin 11.5, platelet count 186. Electrolytes normal, BUN 35 and creatinine 1.8. Weight is down 4 kg since admission. Echocardiogram reveals EF of 50-55% with mild to moderate aortic sclerosis, mild to moderate mitral regurgitation. Severe concentric left ventricular hypertrophy. Patient is followed by pulmonary medicine and cardiology. 02/14: The patient is seen in follow-up today. He has been transitioned to oral Lasix. No lower extremity edema. Breathing status appears stable. Patient remains pleasantly confused. No events overnight. Patient has been afebrile, heart rate 77, blood pressure 144/78, pulse ox 94% on 2 L nasal cannula. Repeat blood work reveals sodium 138, potassium 4.0, chloride 103, CO2 31, BUN 37 creatinine 1.92. Blood sugars are running between 84 and 90.COVID-19 negative. Patient will be discharged back to [facility] today in stable condition. Assessment and Plan 1. Acute hypoxic respiratory failure secondary to a combination of acute on chronic heart failure, pleural effusions. 2. Acute kidney injury with chronic kidney disease stage III. 3. Metabolic encephalopathy secondary to hypoglycemia, respiratory failure. 4. Diabetes mellitus type 2. 5. Hypertension. 6. Hyperlipidemia. 7. Dementia. 8. Recurrent depression and generalized anxiety disorder. 9. Benign prostatic hypertrophy. 10. COVID-19 infection not present. Discharge plan: Return to [facility] Impression and plan of care have been directed as dictated by the signing physician. Mena Gallardo nurse practitioner acting as scribe for signing physician. Patient Condition at Discharge: Serious Plan - Discharge Summary Discharge Rx Participant: Yes New Discharge Prescriptions: New hydrALAZINE HCL [Apresoline] 50 mg PO BID tab INSULIN ASPART (NovoLOG) [NovoLOG (formulary)] 0 unit SQ ACHS vial Linagliptin [Tradjenta] 5 mg PO DAILY tablet Continue Simvastatin [Zocor] 10 mg PO HS@2100 Acetaminophen Tab [Tylenol] 650 mg PO Q4H PRN PRN Reason: Fever Loperamide HCl [Imodium A-D] 2 - 4 mg PO QID PRN PRN Reason: Diarrhea Tamsulosin HCl [Flomax] 0.4 mg PO BID@0900,2100 Dextromethorphan HBr/Quinidine [Nuedexta 20-10 mg Capsule] 1 cap PO BID@0900,2100 Metoprolol Tartrate 12.5 mg PO BID@0900,2100 busPIRone HCL 15 mg PO BID@0900,2100 Melatonin 10 mg PO HS@2100 Escitalopram [Lexapro] 20 mg PO DAILY@0900 Donepezil [Aricept] 10 mg PO HS@2100 Aspirin [Adult Low Dose Aspirin EC] 81 mg PO DAILY@0900 Nitroglycerin Sl Tabs [Nitrostat] 0.4 mg SL Q5M PRN PRN Reason: Chest Pain Menthol-Camphor Lotion [Sarna Lotion 0.5%-0.5%] 1 applic TOPICAL DAILY PRN PRN Reason: PRURITIS/SCRATCHING Menthol-Camphor Lotion [Sarna Lotion 0.5%-0.5%] 1 applic TOPICAL BID Glucerna Shake 240 ml PO TID@1000,1400,1999 ALPRAZolam [Xanax] 0.25 mg PO DAILY PRN #3 tab PRN Reason: Anxiety ALPRAZolam [Xanax] 0.25 mg PO BID@1499,2099 #6 tab Changed Furosemide [Lasix] 40 mg PO DAILY@00 #0 Discontinued lisinopriL [Zestril] 20 mg PO BID@0900,1700 Glimepiride [Amaryl] 2 mg PO BID@0900,1700 Discharge Medication List Simvastatin [Zocor] 10 mg PO HS@209901/04/17 [History] Acetaminophen Tab [Tylenol] 650 mg PO Q4H PRN 02/13/20 [History] Aspirin [Adult Low Dose Aspirin EC] 81 mg PO DAILY@89902/13/20 [History] Dextromethorphan HBr/Quinidine [Nuedexta 20-10 mg Capsule] 1 cap PO BID@899,209902/13/20 [History] Donepezil [Aricept] 10 mg PO HS@209902/13/20 [History] Escitalopram [Lexapro] 20 mg PO DAILY@89902/13/20 [History] Glucerna Shake 240 ml PO TID@1000,1400,199902/13/20 [History] Loperamide HCl [Imodium A-D] 2 - 4 mg PO QID PRN 02/13/20 [History] Melatonin 10 mg PO HS@209902/13/20 [History] Menthol-Camphor Lotion [Sarna Lotion 0.5%-0.5%] 1 applic TOPICAL BID 02/13/20 [History] Menthol-Camphor Lotion [Sarna Lotion 0.5%-0.5%] 1 applic TOPICAL DAILY PRN 02/13/20 [History] Metoprolol Tartrate 12.5 mg PO BID@0900,209902/13/20 [History] Nitroglycerin Sl Tabs [Nitrostat] 0.4 mg SL Q5M PRN 02/13/20 [History] Tamsulosin HCl [Flomax] 0.4 mg PO BID@0900,209902/13/20 [History] busPIRone HCL 15 mg PO BID@0900,209902/13/20 [History] ALPRAZolam [Xanax] 0.25 mg PO BID@1500,2099 #6 tab 02/15/20 [Rx] ALPRAZolam [Xanax] 0.25 mg PO DAILY PRN #3 tab 02/15/20 [Rx] Furosemide [Lasix] 40 mg PO DAILY@0900 #0 02/15/20 [Rx] INSULIN ASPART (NovoLOG) [NovoLOG (formulary)] 0 unit SQ ACHS vial 02/15/20 [Rx] Linagliptin [Tradjenta] 5 mg PO DAILY tablet 02/15/20 [Rx] hydrALAZINE HCL [Apresoline] 50 mg PO BID tab 02/15/20 [Rx] Follow up Appointment(s)/Referral(s): Roula Mcadams MD [Primary Care Provider] - 1 Week (at [facility]) Patient Instructions/Handouts: Heart Failure (ER), Weakness (ED) Activity/Diet/Wound Care/Special Instructions: [facility] needs a COVID test within 72hrs of DC Discharge Disposition: TRANSFER TO SNF/ECF
[2020-02-15 12:06] LABS: Glucose,Whole Blood 121 mg/dL (75-99)
--- NOTE | 2020-02-15 12:31 | P.PN ---
Subjective Progress Note Date: 02/15/20 Principal diagnosis: Dyspnea, acute hypoxic respiratory failure 84-year-old white male patient, who is a resident of [facility], who is a poor historian, has a history of dementia, hypertension, hyperlipidemia, diabetes mellitus type 2, depression, former smoker, chronic medical debility who was brought into the hospital on 02/12/2020 for evaluation of low SpO2 in the low 80s, and hypertension that was noted by the nursing staff during rounds. Patient of the complaints upon arrival to the emergency department, his pulse ox on arrival to the ER was 86% on room air, patient denied any shortness of breath, chest pain, no fever or chills. Was placed on supplemental oxygen, ches t x-ray was completed showing enlarged heart, pulmonary edema, some blunting the costophrenic angles consistent with pleural effusions and fluid in the major fissures. EKG showed sinus bradycardia, with evidence of biatrial enlargement, and nonspecific ST and T-wave abnormality. Labs were reviewed showing a blood cell count of 12.4, hemoglobin of 11.2, INR is 1.1, electrolytes are within normal limits, BUN was 33, creatinine is 1.6, plasma lactic acid was 1.0, LFTs were within normal limits, troponin was less than 0.012, proBNP was 5310. Patient is currently on 2 L of oxygen his pulse ox is 92%, hemodynamically he is stable, he has no specific complaints, echocardiogram has been completed and the results are pending at this time, as been afebrile. He was started on IV Lasix at 40 mg every 12 hours. The pleural effusions seen on the chest x-ray are small and did not require thoracentesis, we'll continue current medical management and IV diuretics. On 02/14/2020 patient seen in follow-up on selective care unit, he is resting quietly in bed, remains confused, apparently last night he got also very restless, he pulled out his Shine catheter there was significant amount of hematuria, and Shine catheter was not placed back in. breathing comfortable, he is on 2 L of oxygen right now with a pulse ox of 98%, will Probably further wean off the supplemental oxygen, he is afebrile, denies any chest pain, vital signs are stable, patient continues on diuretics, he has been transitioned to oral Lasix today, he has diuresed, his weight is down by 4.5 kg since admission. No lower extremity edema, lung sounds reveal some mild crackles at the bases, no rhonchi or wheezing. On 02/15/2020 patient seen in follow-up on selective care unit. He is awake on today's exam, more interactive, he remains confused, but not agitated, 60 sitter is at the bedside. Vital signs have been stable, he denies any respiratory distress, breathing seems to be comfortable, he is on 2 L of oxygen a pulse ox of 94%, afebrile. Chest x-ray showing persistent changes of CHF with bilateral effusion greater on the right. Patient is on diuretics, no significant lower extremity edema, his weight is down by another 2.5 kg in the last 24 hours. Today's labs have been noted, there has been the slight increase in his creatinine, up to 1.92, and B UN is fairly stable at 37. CO2 is 31, the rest of electrolytes were within normal limits. No acute events overnight, no complaints of chest pain, his Lasix has been transitioned to oral Lasix, discharge planning is in progress for discharge to [facility] today Objective - Vital Signs Vital signs: Vital Signs Temp 98.1 F 02/15/20 07:57 Pulse 77 02/15/20 07:57 Resp 16 02/15/20 07:57 BP 144/78 02/15/20 07:57 Pulse Ox 94 L 02/15/20 07:57 Intake & Output 02/14/20 02/15/20 02/15/20 18:59 06:59 18:59 Intake Total 0 480 118 Output Total 150 325 1 Balance -150 155 117 Weight 78 kg 75.5 kg Intake: Oral 0 480 118 Output: Urine 150 325 1 Straight 150 Other: Voiding Method Incontinent Incontinent # Voids 1 2 1 # Bowel Movements 1 1 - Exam GENERAL EXAM: Alert, 84-year-old white male, resting in bed, on 2 L of oxygen, pleasant, however he is a poor historian, he is only oriented to self, and place, does have underlying history of dementia comfortable in no apparent distress. HEAD: Normocephalic/atraumatic. EYES: Normal reaction of pupils, equal size. Conjunctiva pink, sclera white. NOSE: Clear with pink turbinates. THROAT: No erythema or exudates. NECK: No masses, no JVD, no thyroid enlargement, no adenopathy. CHEST: No chest wall deformity. Symmetrical expansion. LUNGS: Equal air entry with mild crackles at the right base, diminished breath sounds overall, no wheeze, no rhonchi or dullness. CVS: Regular rate and rhythm, normal S1 and S2, no gallops, no murmurs, no rubs ABDOMEN: Soft, nontender. No hepatosplenomegaly, normal bowel sounds, no guarding or rigidity. EXTREMITIES: No clubbing, mild peripheral edema, no cyanosis, 2+ pulses and upper and lower extremities. MUSCULOSKELETAL: Muscle strength and tone normal. SPINE: No scoliosis or deformity SKIN: No rashes CENTRAL NERVOUS SYSTEM: Alert and oriented -2. No focal deficits, tone is normal in all 4 extremities. PSYCHIATRIC: Alert and oriented -2. - Labs CBC & Chem 7: 02/14/20 07:06 02/15/20 05:43 Labs: Abnormal Lab Results - Last 24 Hours (Table) 02/14/20 02/14/20 02/14/20 Range/Units 12:52 17:06 20:41 Carbon Dioxide (22-30) mmol/L BUN (9-20) mg/dL Creatinine (0.66-1.25) mg/dL POC Glucose (mg/dL) 107 H 143 H 64 L (75-99) mg/dL 02/15/20 02/15/20 Range/Units 05:43 12:04 Carbon Dioxide 31 H (22-30) mmol/L BUN 37 H (9-20) mg/dL Creatinine 1.92 H (0.66-1.25) mg/dL POC Glucose (mg/dL) 121 H (75-99) mg/dL Assessment and Plan Plan: Assessment: #1. Acute hypoxic respiratory failure related to acute exacerbation of chronic congestive heart failure, with diastolic dysfunction, echocardiogram was complet ed on 02/13/2020 showing severe LVH, and EF of 50-55%, [id number] aortic sclerosis, no evidence of aortic regurgitation, no evidence of aortic stenosis, mild to moderate mitral regurg, tricuspid and pulmonic valve not well visualized. Hypoxemia improved with diuresis, and patient is currently down to 2 L of oxygen, with a pulse ox of 98% #2. Small bilateral pleural effusions, pulmonary edema, related to the above, continue medical treatment #3. Hypertension #4. Hyperlipidemia #5. Underlying history of dementia #6. History of aortic aneurysm #7. Diabetes mellitus type 2 #8. Acute kidney injury #9. Chronic kidney disease stage III #10. Depression #11. Chronic medical debility, patient is a resident of a local F #12. Hospital-acquired delirium on top of underlying dementia, with agitation and restlessness, and patient pulled out his indwelling catheter Plan: Patient has remained stable in the last 24 hours, no acute events overnight, he is maintaining negative fluid balance, breathing is comfortable, no signs of any respiratory distress, no complaints of chest pain, his diuretics have been transitioned to oral Lasix, fluid status is improving, today's chest x-ray still shows bilateral pleural effusions greater on the right, continue medical management. From pulmonary perspective patient is stable for discharge back to the [facility] today on oral diuretics I performed a history & physical examination of the patient and discussed their management with my nurse practitioner, Oma Stark. I reviewed the nurse practitioner's note and agree with the documented findings and plan of care. Lung sounds are positive for diminished breath sounds. The findings and the impression was discussed with the patient. I attest to the documentation by the nurse practitioner. Time with Patient: Less than 30
== END 2020-02-15 13:13 | DRG 291 ==
LOC: EC 21:57 → 3SCARD 02-13 00:03
PROVIDERS: ADMIT Internal Medicine Geriatric Medicine; ATTEND Internal Medicine Geriatric Medicine
DX: I13.0 Hypertensive heart and chronic kidney disease with heart failure and stage 1 through stage 4 chronic kidney disease, or unspecified chronic kidney disease (principal); I50.33 Acute on chronic diastolic (congestive) heart failure; J96.01 Acute respiratory failure with hypoxia; G93.41 Metabolic encephalopathy; N17.9 Acute kidney failure, unspecified; F33.9 Major depressive disorder, recurrent, unspecified; Z20.828 Contact with and (suspected) exposure to other viral communicable diseases; E11.649 Type 2 diabetes mellitus with hypoglycemia without coma; N18.3 Chronic kidney disease, stage 3 (moderate); F03.90 Unspecified dementia, unspecified severity, without behavioral disturbance, psychotic disturbance, mood disturbance, and anxiety; E11.22 Type 2 diabetes mellitus with diabetic chronic kidney disease; I71.9 Aortic aneurysm of unspecified site, without rupture; E78.5 Hyperlipidemia, unspecified; E11.65 Type 2 diabetes mellitus with hyperglycemia; H26.9 Unspecified cataract; K46.9 Unspecified abdominal hernia without obstruction or gangrene; R00.1 Bradycardia, unspecified; F41.1 Generalized anxiety disorder; N40.0 Benign prostatic hyperplasia without lower urinary tract symptoms; I08.0 Rheumatic disorders of both mitral and aortic valves; R31.9 Hematuria, unspecified; Z71.3 Dietary counseling and surveillance; Z79.84 Long term (current) use of oral hypoglycemic drugs; Z79.899 Other long term (current) drug therapy; Z79.82 Long term (current) use of aspirin; Z98.890 Other specified postprocedural states; Z91.018 Allergy to other foods; Z82.3 Family history of stroke; Z82.49 Family history of ischemic heart disease and other diseases of the circulatory system; Z83.3 Family history of diabetes mellitus; Z83.438 Family history of other disorder of lipoprotein metabolism and other lipidemia
CPT/HCPCS: 36415; 71045; 71046; 80048; 80053; 83605; 83880; 84484; 85025; 85027; 85610; 85730; 87635; 93005; 93306; 96372; 96374; 96375; 96376; 99285

== ENCOUNTER → 2020-02-26 | Outpatient (CLI) | payer MEDICARE, OTHER ==
--- NOTE | 2020-02-26 16:40 | CT ---
EXAMINATION TYPE: CT abdomen pelvis wo con DATE OF EXAM: 02/26/2020 COMPARISON: None INDICATION: abdominal distension DLP: 998 mGycm, Automated exposure control for dose reduction was used. CONTRAST: 0 mL of Isovue 300. Study performed without Oral Contrast TECHNIQUE: Axial images were obtained from above the diaphragm to the pubic rami in the axial plane a t 5 mm thick sections. Reconstructed images are reviewed on the computer in the coronal plane. FINDINGS: Limited CT sections are obtained the lung bases. Some emphysematous changes are evident at the lung bases. Some paraseptal emphysematous change or fibrosis may be present. Small right pleural effusion is present. Small hiatal hernia may be present. CT ABDOMEN: There is mild vague increased density within the mid mesentery. Example image series 3 im age 56. Periumbilical hernia containing mesenteric fat is present. The opening is 1.4 cm. Liver: Normal Spleen: Normal Pancreas: Normal Adrenal glands: The adrenal glands are normal. Gallbladder: Very subtle gallstone is within the neck of the gallbladder. Kidneys: No masses are evident. No hydronephrosis is present. No cysts are present. Delayed images were obtained through the kidneys, which remain unremarkable. Aorta: Vascular calcification is within the aorta. Inferior vena cava: Normal. CT PELVIS: Loops of bowel within the abdomen and pelvis are normal. The study is without oral contrast limit ing bowel evaluation. Appendix: Normal as visualized. Urinary bladder: Normal. Genitourinary structures: Prostate is unremarkable. Osseous structures: No suspicious lytic or sclerotic lesions. IMPRESSIONS: 1. Subtle mild mesenteric inflammatory change which is nonspecific. 2. Cholelithiasis. 3. Periumbilical hernia containing mesenteric fat.
== END | disposition home or self-care (01) ==
LOC: RADCTMAIN 12:46
PROVIDERS: ATTEND Family Medicine
DX: K80.20 Calculus of gallbladder without cholecystitis without obstruction (principal); K42.9 Umbilical hernia without obstruction or gangrene; K66.8 Other specified disorders of peritoneum
CPT/HCPCS: 74176

== ENCOUNTER 2020-03-11 00:22 | Inpatient (IN) | payer MEDICARE, OTHER ==
--- NOTE | 2020-03-11 00:39 | ED ---
General Adult HPI - General Chief complaint: Neuro Symptoms/Deficit Stated complaint: Poss Stroke Time Seen by Provider: 03/11/20 00:39 Source: patient, EMS Mode of arrival: EMS Limitations: language barrier, altered mental status, physical limitation - History of Present Illness Initial comments: Santana is a pleasantly demented 84-year-old male who is brought to the emergency department today via EMS with concern for focal neurologic deficits. Apparently the patient was last seen at 2300 he was in his usual state of health, when he was checked on by his nurse at his half-way she was concerned that he had some left-sided facial droop and his speech was slurred which is atypical for him. Patient does not usually wear dentures and usually has clear speech without them. The patient does have a history of advanced dementia he is alert and oriented to self only he reports that he is usually very restless trying to get out of bed. - Related Data Home Medications Medication Instructions Recorded Confirmed Simvastatin [Zocor] 10 mg PO HS@209901/04/17 02/13/20 Acetaminophen Tab [Tylenol] 650 mg PO Q4H PRN 02/13/20 02/13/20 Aspirin [Adult Low Dose Aspirin EC] 81 mg PO DAILY@89902/13/20 02/13/20 Dextromethorphan HBr/Quinidine 1 cap PO BID@899,209902/13/20 02/13/20 [Nuedexta 20-10 mg Capsule] Donepezil [Aricept] 10 mg PO HS@209902/13/20 02/13/20 Escitalopram [Lexapro] 20 mg PO DAILY@89902/13/20 02/13/20 Glucerna Shake 240 ml PO TID@1000,1400,199902/13/20 02/13/20 Loperamide HCl [Imodium A-D] 2 - 4 mg PO QID PRN 02/13/20 02/13/20 Melatonin 10 mg PO HS@209902/13/20 02/13/20 Menthol-Camphor Lotion [Sarna 1 applic TOPICAL BID 02/13/20 02/13/20 Lotion 0.5%-0.5%] Menthol-Camphor Lotion [Sarna 1 applic TOPICAL DAILY PRN 02/13/20 02/13/20 Lotion 0.5%-0.5%] Metoprolol Tartrate 12.5 mg PO BID@0900,2100 02/13/20 02/13/20 Nitroglycerin Sl Tabs [Nitrostat] 0.4 mg SL Q5M PRN 02/13/20 02/13/20 Tamsulosin HCl [Flomax] 0.4 mg PO BID@0900,209902/13/20 02/13/20 busPIRone HCL 15 mg PO BID@0900,209902/13/20 02/13/20 Previous Rx's Medication Instructions Recorded ALPRAZolam [Xanax] 0.25 mg PO BID@1500,2100 #6 tab 02/15/20 ALPRAZolam [Xanax] 0.25 mg PO DAILY PRN #3 tab 02/15/20 Furosemide [Lasix] 40 mg PO DAILY@0900 #0 02/15/20 INSULIN ASPART (NovoLOG) [NovoLOG 0 unit SQ ACHS vial 02/15/20 (formulary)] Linagliptin [Tradjenta] 5 mg PO DAILY tablet 02/15/20 hydrALAZINE HCL [Apresoline] 50 mg PO BID tab 02/15/20 Allergies Allergy/AdvReac Type Severity Reaction Status Date / Time strawberry Allergy Unknown Verified 03/11/20 00:32 Review of Systems ROS Statement: Those systems with pertinent positive or pertinent negative responses have been documented in the HPI. ROS Other: All systems not noted in ROS Statement are negative. Past Medical History Past Medical History: Dementia, Diabetes Mellitus, Hyperlipidemia, Hypertension Additional Past Medical History / Comment(s): NIDDM type II, aortic aneursym, abdominal hernia, bilateral cataracts History of Any Multi-Drug Resistant Organisms: None Reported Past Surgical History: Tonsillectomy Past Anesthesia/Blood Transfusion Reactions: No Reported Reaction Past Psychological History: Depression Smoking Status: Former smoker Past Alcohol Use History: None Reported Past Drug Use History: None Reported - Past Family History Father Family Medical History: CVA/TIA Son(s) Additional Family Medical History / Comment(s): He has 2 sons. One has coronary artery disease and a stent placed at age 58. He has a second son with hypertension, cholesterol, diabetes. Daughter(s) Additional Family Medical History / Comment(s): He has 3 daughters. Brother(s) Additional Family Medical History / Comment(s): Patient has a total of 6 brothers and one from a myocardial infarction. One at age 84 from a bowel problem but not cancer. Sister(s) Additional Family Medical History / Comment(s): He has 4 sisters. General Exam - General Exam Comments Initial Comments: Physical Exam GENERAL: Elderly male, no distress HENT: Normocephalic, Atraumatic. EYES: PERRL, EOMI PULMONARY: Unlabored respirations. CARDIOVASCULAR: Bradycardic Warm and well perfused extremities ABDOMEN: Non-distended SKIN: No rashes or bruising : Deferred NEUROLOGIC: Alert and oriented to self only Mild slurred speech Moving all extremities MUSCULOSKELETAL: Moving all extremities with no apparent injury PSYCHIATRIC: Agitated Limitations: language barrier, altered mental status, physical limitation Course Vital Signs 03/11/20 00:26 Temperature 97.1 F L Pulse Rate 77 Respiratory 18 Rate Blood Pressure 132/77 O2 Sat by Pulse 96 Oximetry EKG Findings - EKG Comments: EKG Findings:: EKG was obtained as part of the stroke workup, EKG was obtained at 1:04 AM, rate is 53 rhythm is sinus bradycardia with a prolonged QT, AK 174, care assigned 6, QTC [address] elevations or depressions no evidence of ac [place] ischemia or infarction Medical Decision Making - Medical Decision Making The patient was seen and evaluated, history is obtained from the patient and nurse at [facility] 84-year-old gentleman with advanced dementia history of strokes multiple medical comorbidities coming in with possible left-sided facial droop and possible slurred speech Patient is able speak I can understand his speech but it is somewhat distorted nurse reports that he does not usually wear any dentures so this is not the cause Code stroke was activated for an NIH of 3 Patient care was discussed with Dr. Beebe who agrees this patient is not a candidate for TPA, recommends head CT to rule out any bleed or mass and admission to hospital for supportive care Computed tomography scan was unremarkable Labs with chronic anemia no significant abnormalities She care was discussed with Dr. Mcadams who is familiar with this patient she accepts the admission she is aware that we do not have neurology professional services manager today She recommends aspirin, swallow evaluation and neuro checks - Lab Data Result diagrams: 03/11/20 01:06 03/11/20 01:06 Lab Results 0903/11/20 03/11/20 Range/Units 01:06 01:06 01:06 WBC 10.2 (3.8-10.6) k/uL RBC 3.30 L (4.30-5.90) m/uL Hgb 10.6 L (13.0-17.5) gm/dL Hct 33.1 L (39.0-53.0) % MCV 100.2 H (80.0-100.0) fL MCH 32.0 (25.0-35.0) pg MCHC 31.9 (31.0-37.0) g/dL RDW 13.6 (11.5-15.5) % Plt Count 182 (150-450) k/uL Neutrophils % 72 % Lymphocytes % 13 % Monocytes % 6 % Eosinophils % 8 % Basophils % 1 % Neutrophils # 7.3 (1.3-7.7) k/uL Lymphocytes # 1.3 (1.0-4.8) k/uL Monocytes # 0.6 (0-1.0) k/uL Eosinophils # 0.8 H (0-0.7) k/uL Basophils # 0.1 (0-0.2) k/uL Hypochromasia Slight PT 10.4 (9.0-12.0) sec INR 1.0 (<1.2) APTT 29.9 (22.0-30.0) sec Sodium 136 L (137-145) mmol/L Potassium 5.3 H (3.5-5.1) mmol/L Chloride 103 (98-107) mmol/L Carbon Dioxide 27 (22-30) mmol/L Anion Gap 6 mmol/L BUN 52 H (9-20) mg/dL Creatinine 1.89 H (0.66-1.25) mg/dL Est GFR (CKD-EPI)AfAm 36 (>60 ml/min/1.73 sqM) Est GFR (CKD-EPI)NonAf 31 (>60 ml/min/1.73 sqM) Glucose 232 H (74-99) mg/dL Calcium 8.5 (8.4-10.2) mg/dL Total Bilirubin 0.4 (0.2-1.3) mg/dL AST 27 (17-59) U/L ALT 37 (4-49) U/L Alkaline Phosphatase 129 H (38-126) U/L Troponin I (0.000-0.034) ng/mL Total Protein 5.8 L (6.3-8.2) g/dL Albumin 3.0 L (3.5-5.0) g/dL 03/11/20 Range/Units 01:06 WBC (3.8-10.6) k/uL RBC (4.30-5.90) m/uL Hgb (13.0-17.5) gm/dL Hct (39.0-53.0) % MCV (80.0-100.0) fL MCH (25.0-35.0) pg MCHC (31.0-37.0) g/dL RDW (11.5-15.5) % Plt Count (150-450) k/uL Neutrophils % % Lymphocytes % % Monocytes % % Eosinophils % % Basophils % % Neutrophils # (1.3-7.7) k/uL Lymphocytes # (1.0-4.8) k/uL Monocytes # (0-1.0) k/uL Eosinophils # (0-0.7) k/uL Basophils # (0-0.2) k/uL Hypochromasia PT (9.0-12.0) sec INR (<1.2) APTT (22.0-30.0) sec Sodium (137-145) mmol/L Potassium (3.5-5.1) mmol/L Chloride (98-107) mmol/L Carbon Dioxide (22-30) mmol/L Anion Gap mmol/L BUN (9-20) mg/dL Creatinine (0.66-1.25) mg/dL Est GFR (CKD-EPI)AfAm (>60 ml/min/1.73 sqM) Est GFR (CKD-EPI)NonAf (>60 ml/min/1.73 sqM) Glucose (74-99) mg/dL Calcium (8.4-10.2) mg/dL Total Bilirubin (0.2-1.3) mg/dL AST (17-59) U/L ALT (4-49) U/L Alkaline Phosphatase (38-126) U/L Troponin I <0.012 (0.000-0.034) ng/mL Total Protein (6.3-8.2) g/dL Albumin (3.5-5.0) g/dL Disposition Clinical Impression: Cerebrovascular accident (CVA) Disposition: ADMITTED IP TO THIS HOSP Condition: Serious Is patient prescribed a controlled substance at d/c from ED?: No Referrals: Roula Mcadams MD [Primary Care Provider] - 1-2 days
--- NOTE | 2020-03-11 01:26 | CT ---
EXAMINATION TYPE: CT brain wo con for TPA DATE OF EXAM: 03/11/2020 COMPARISON: 04/23/2018 HISTORY: AMS CT DLP: 1260.4 mGycm Automated exposure control for dose reduction was used. There is cerebral cortical atrophy. There is enlargement of the ventricles. There is no mass effect n or midline shift. There is no sign of intracranial hemorrhage. Calvarium is intact. IMPRESSION: Cerebral atrophy. Hydrocephalus. No change compared to old exam.
--- NOTE | 2020-03-11 01:27 | XR ---
EXAMINATION TYPE: XR chest 1V portable DATE OF EXAM: 03/11/2020 COMPARISON: 02/15/2020 HISTORY: Altered mental status TECHNIQUE: Single view FINDINGS: There is moderate pulmonary edema. Heart is enlarged. There is blunting of costophrenic ang les. IMPRESSION: Congestive heart failure and pulmonary edema appears worse than last exam. Pleural fluid unchanged.
[2020-03-11 01:29] LABS: Basophils # (A) 0.1 k/uL (0-0.2); Basophils % (A) 1 %; Eosinophils # (A) 0.8 k/uL (0-0.7); Eosinophils % (A) 8 %; HCT 33.1 % (39.0-53.0); HGB 10.6 gm/dL (13.0-17.5); Hypochromasia Slight; Lymphocytes # (A) 1.3 k/uL (1.0-4.8); Lymphocytes % (A) 13 %; MCHC 31.9 g/dL (31.0-37.0); MCV 100.2 fL (80.0-100.0); Mean Platelet Volume 9.2; Monocytes # (A) 0.6 k/uL (0-1.0); Monocytes % (A) 6 %; Neutrophils # (A) 7.3 k/uL (1.3-7.7); Neutrophils % (A) 72 %; Platelet Count 182 k/uL (150-450); RDW 13.6 % (11.5-15.5); WBC 10.2 k/uL (3.8-10.6)
[2020-03-11 01:37] LABS: Calcium 8.5 mg/dL (8.4-10.2); Potassium 5.3 mmol/L (3.5-5.1); Total Bilirubin 0.4 mg/dL (0.2-1.3); Total Protein 5.8 g/dL (6.3-8.2)
[2020-03-11 01:38] LABS: Partial Thromboplastin Time 29.9 sec (22.0-30.0); Prothrombin Time 10.4 sec (9.0-12.0)
[2020-03-11] MEDS ORDERED: NALOXONE 0.4 MG/ML 1 ML VIAL IV PRN (02:26)
[2020-03-11 07:26] LABS: Glucose,Whole Blood 182 mg/dL (75-99)
[2020-03-11] MEDS: ASPIRIN 325 MG TAB PO SCH (08:30)
[2020-03-11] MEDS ORDERED: ACETAMINOPHEN TAB 325 MG TAB PO PRN (09:20)
[2020-03-11] MEDS ORDERED: FUROSEMIDE 10 MG/ML 4 ML VIAL IV STA (09:27)
[2020-03-11] MEDS ORDERED: FUROSEMIDE 10 MG/ML 4 ML VIAL IV SCH (09:30)
[2020-03-11] MEDS ORDERED: ALPRAZolam 0.5 MG TAB PO SCH (09:30)
[2020-03-11] MEDS: PIPERACILLIN-TAZOBACTAM 3.375 GM in SODIUM CHLORIDE 0.9% 100 ML IVPB SCH ×2 (11:40→20:07)
[2020-03-11] MEDS: hydrALAZINE HCL 50 MG TAB PO SCH ×2 (11:57→23:01)
[2020-03-11] MEDS: LINAGLIPTIN 5 MG TABLET PO SCH (11:57)
[2020-03-11 12:19] LABS: Glucose,Whole Blood 207 mg/dL (75-99)
[2020-03-11] MEDS ORDERED: HYDROcodone/APAP 5-325MG 1 EACH TAB PO PRN (12:39)
--- NOTE | 2020-03-11 12:39 | US ---
EXAMINATION TYPE: US carotid duplex BILAT DATE OF EXAM: 03/11/2020 COMPARISON: NONE CLINICAL HISTORY: 84-year-old male CVA. TECHNIQUE: Carotid duplex ultrasound examination. Indirect Doppler criteria was utilized. FINDINGS: Laborer Rags notes:Exam limited patient moving during exam not cooperating. FINDINGS: EXAM MEASUREMENTS: RIGHT: Peak Systolic Velocity (PSV) cm/sec ----- Right CCA: 91.0 ----- Right ICA: 77.9 ----- Right ECA: 85.2 ICA/CCA ratio: 0.9 RIGHT: End Diastole cm/sec ----- Right CCA: 16.9 ----- Right ICA: 18.3 ----- Right ECA: 0 LEFT: Peak Systolic Velocity (PSV) cm/sec ----- Left CCA: 57.5 ----- Left ICA: 102.6 ----- Left ECA: 133.1 ICA/CCA ratio: 1.8 LEFT: End Diastole cm/sec ----- Left CCA: 0 ----- Left ICA: 28.5 ----- Left ECA: 0 VERTEBRALS (direction of flow): Right Vertebral: Not well visualized Left Vertebral: Not well visualized Rhythm: Normal Laborer Rags notes: Bilateral plaque visualized . No significant stenosis seen IMPRESSION: 1. Exam limited as the patient would not cooperate. No hemodynamically significant internal carotid a rtery stenosis on either side. Mild to moderate atherosclerotic change at the bifurcations. 2. Unable to adequately visualize the vertebral arteries due to exam limitations. Criteria for Assigning % of Stenosis / Diameter reduction (Estimation based on the indirect measurements of the internal carotid artery velocities (ICA PSV). 1. Normal (no stenosis)=ICA PSV < 125 cm/s: ratio < 2.0: ICA EDV<40 cm/s. 2. Less than 50% stenosis=ICA PSV < 125 cm/s: ratio < 2.0: ICA EDV<40 cm/s. 3. 50 to 69% stenosis=ICA PSV of 125 to 230 cm/s: ration 2.0 ? 4.0: ICA EDV 40-100 cm/s. 4. Greater than 70% stenosis to near occlusion= ICA PSV > 230 cm/s: ratio > 4.0: ICA EDV > 100 cm/s. 5. Near occlusion= ICA PSV velocities may be low or undetectable: variable ratio and ICA EDV. 6. Total occlusion=unable to detect flow.
--- NOTE | 2020-03-11 12:43 | P.HPIM ---
History of Present Illness H&P Date: 03/11/20 Chief Complaint: Slurred speech, facial droop left side There is a pleasant 84-year-old gentleman who I follow at [facility], with history of diabetes mellitus type 2, hypertension hyperlipidemia dyslipidemia, dementia aortic aneurysm, pseudobulbar affect depression, admitted to the emergency room secondary to new onset slurred speech that happened at bedtime, this is also noticeable by the nursing staff of a facial droop, prior to these patient has been baseline with some behaviors, has difficulty with reorienting his behaviors, uncomfortable either sitting down and laying down and standing up, the medications were added over the past 2 weeks to keisha his s ymptoms, however it looks like these are more as lumbar stenosis type pain, no cold has elevated most of his discomfort, patient's unable to report any of his symptoms, where in the process of weaning off his Seroquel 25 which was started 7 days ago. When seen in the emergency room, patient cannot provide much of the history, there is also a facial droop that was noted, when seen by myself today, patient awakens, can follow verbal commands however cannot feel feel a full neuro evaluation. There is a facial droop noted left side, unable to elicit a full industrial machinery mechanic on the left arm, able to industrial machinery mechanic on the right arm, and able to move legs bilaterally. Review of Systems ROS unobtainable: due to mental status Past Medical History Past Medical History: Heart Failure, Dementia, Diabetes Mellitus, Hyperlipidemia, Hypertension Additional Past Medical History / Comment(s): NIDDM type II, aortic aneursym, abdominal hernia, bilateral cataracts pseudobulbar affect disorder depression severe elevated PSA workup in progress History of Any Multi-Drug Resistant Organisms: None Reported Past Surgical History: No Surgical Hx Reported, Tonsillectomy Past Anesthesia/Blood Transfusion Reactions: No Reported Reaction Past Psychological History: Depression Additional Psychological History / Comment(s): . Smoking Status: Former smoker Past Alcohol Use History: None Reported Additional Past Alcohol Use History / Comment(s): Pt states he started smoking in 1949 and quit in 2008. Past Drug Use History: None Reported - Past Family History Father Family Medical History: CVA/TIA Son(s) Additional Family Medical History / Comment(s): He has 2 sons. One has coronary artery disease and a stent placed at age 58. He has a second son with hypertension, cholesterol, diabetes. Daughter(s) Additional Family Medical History / Comment(s): He has 3 daughters. Brother(s) Additional Family Medical History / Comment(s): Patient has a total of 6 brothers and one from a myocardial infarction. One at age 84 from a bowel problem but not cancer. Sister(s) Additional Family Medical History / Comment(s): He has 4 sisters. Medications and Allergies Home Medications Medication Instructions Recorded Confirmed Type Simvastatin [Zocor] 10 mg PO HS@209901/04/17 03/11/20 History Acetaminophen Tab [Tylenol] 650 mg PO Q4H PRN 02/13/20 03/11/20 History Aspirin [Adult Low Dose Aspirin EC] 81 mg PO DAILY@89902/13/20 03/11/20 History Dextromethorphan HBr/Quinidine 1 cap PO BID@899,209902/13/20 03/11/20 History [Nuedexta 20-10 mg Capsule] Donepezil [Aricept] 10 mg PO HS@209902/13/20 03/11/20 History Escitalopram [Lexapro] 20 mg PO DAILY@89902/13/20 03/11/20 History Glucerna Shake 240 ml PO TID@1000,1400,199902/13/20 03/11/20 History Loperamide HCl [Imodium A-D] 2 - 4 mg PO QID PRN 02/13/20 03/11/20 History Melatonin 10 mg PO HS@209902/13/20 03/11/20 History Menthol-Camphor Lotion [Sarna 1 applic TOPICAL BID 02/13/20 03/11/20 History Lotion 0.5%-0.5%] Menthol-Camphor Lotion [Sarna 1 applic TOPICAL DAILY PRN 02/13/20 03/11/20 History Lotion 0.5%-0.5%] Metoprolol Tartrate 12.5 mg PO BID@899,209902/13/20 03/11/20 History Nitroglycerin Sl Tabs [Nitrostat] 0.4 mg SL Q5M PRN 02/13/20 03/11/20 History Tamsulosin HCl [Flomax] 0.4 mg PO BID@899,2099 02/13/20 03/11/20 History busPIRone HCL 15 mg PO BID@0900,2100 02/13/20 03/11/20 History Furosemide [Lasix] 40 mg PO DAILY@0900 #0 02/15/20 03/11/20 Rx Linagliptin [Tradjenta] 5 mg PO DAILY tablet 02/15/20 03/11/20 Rx hydrALAZINE HCL [Apresoline] 50 mg PO BID tab 02/15/20 03/11/20 Rx ALPRAZolam [Xanax] 0.5 mg PO TID@0900,1300,2100 03/11/20 03/11/20 History HYDROcodone/APAP 5-325MG [[place] 1 tab PO DIRECTED 03/11/20 03/11/20 History 5-325] HYDROcodone/APAP 5-325MG [[place] 1 tab PO Q12HR PRN 03/11/20 03/11/20 History 5-325] QUEtiapine [SEROquel] 12.5 mg PO HS@209903/11/20 03/11/20 History Allergies Allergy/AdvReac Type Severity Reaction Status Date / Time strawberry Allergy Unknown Verified 03/11/20 11:33 Physical Exam Vitals: Vital Signs Temp Pulse Pulse Resp BP BP Pulse Ox 03/11/20 09:04 93 L 03/11/20 08:48 59 L 119/73 88 L 03/11/20 03:30 53 L 18 133/60 93 L 03/11/20 03:13 97.1 F L 64 16 129/61 93 L 03/11/20 00:26 97.1 F L 77 18 132/77 96 Intake and Output 03/10/20 03/11/20 03/11/20 22:59 06:59 14:59 Other: Voiding Method Diaper Diaper Incontinent Incontinent # Voids 1 Weight 86.183 kg - Constitutional General appearance: cooperative - EENT Eyes: anicteric sclerae, EOMI, PERRLA, dentition normal, poor dentition ENT: NA/AT - Neck Neck: normal ROM - Respiratory Respiratory: bilateral: CTA - Cardiovascular Rhythm: regular Heart sounds: normal: S1, S2 Abnormal Heart Sounds: systolic murmur, diastolic murmur - Gastrointestinal General gastrointestinal: normal bowel sounds, soft - Integumentary Integumentary: decreased turgor, normal - Neurologic Neurologic: CNII-XII intact - Musculoskeletal Musculoskeletal: generalized weakness, strength equal bilaterally - Psychiatric Psychiatric: appropriate affect Results CBC & Chem 7: 03/11/20 01:06 03/11/20 01:06 Labs: Abnormal Lab Results - Last 24 Hours (Table) 03/11/20 03/11/20 03/11/20 Range/Units 01:06 01:06 07:24 RBC 3.30 L (4.30-5.90) m/uL Hgb 10.6 L (13.0-17.5) gm/dL Hct 33.1 L (39.0-53.0) % MCV 100.2 H (80.0-100.0) fL Eosinophils # 0.8 H (0-0.7) k/uL Sodium 136 L (137-145) mmol/L Potassium 5.3 H (3.5-5.1) mmol/L BUN 52 H (9-20) mg/dL Creatinine 1.89 H (0.66-1.25) mg/dL Glucose 232 H (74-99) mg/dL POC Glucose (mg/dL) 182 H (75-99) mg/dL Alkaline Phosphatase 129 H (38-126) U/L Total Protein 5.8 L (6.3-8.2) g/dL Albumin 3.0 L (3.5-5.0) g/dL Laboratory Results WBC 10.2 k/uL (3.8-10.6) 03/11/20 01:06 RBC 3.30 m/uL (4.30-5.90) L 03/11/20 01:06 Hgb 10.6 gm/dL (13.0-17.5) L 03/11/20 01:06 Hct 33.1 % (39.0-53.0) L 03/11/20 01:06 MCV 100.2 fL (80.0-100.0) H 03/11/20 01:06 MCH 32.0 pg (25.0-35.0) 03/11/20 01:06 MCHC 31.9 g/dL (31.0-37.0) 03/11/20 01:06 RDW 13.6 % (11.5-15.5) 03/11/20 01:06 Plt Count 182 k/uL (150-450) 03/11/20 01:06 Neutrophils % 72 % 03/11/20 01:06 Lymphocytes % 13 % 03/11/20 01:06 Monocytes % 6 % 03/11/20 01:06 Eosinophils % 8 % 03/11/20 01:06 Basophils % 1 % 03/11/20 01:06 Neutrophils # 7.3 k/uL (1.3-7.7) 03/11/20 01:06 Lymphocytes # 1.3 k/uL (1.0-4.8) 03/11/20 01:06 Monocytes # 0.6 k/uL (0-1.0) 03/11/20 01:06 Eosinophils # 0.8 k/uL (0-0.7) H 03/11/20 01:06 Basophils # 0.1 k/uL (0-0.2) 03/11/20 01:06 Hypochromasia Slight 03/11/20 01:06 PT 10.4 sec (9.0-12.0) 03/11/20 01:06 INR 1.0 (<1.2) 03/11/20 01:06 APTT 29.9 sec (22.0-30.0) 03/11/20 01:06 Sodium 136 mmol/L (137-145) L 03/11/20 01:06 Potassium 5.3 mmol/L (3.5-5.1) H 03/11/20 01:06 Chloride 103 mmol/L (98-107) 03/11/20 01:06 Carbon Dioxide 27 mmol/L (22-30) 03/11/20 01:06 Anion Gap 6 mmol/L 03/11/20 01:06 BUN 52 mg/dL (9-20) H 03/11/20 01:06 Creatinine 1.89 mg/dL (0.66-1.25) H 03/11/20 01:06 Est GFR (CKD-EPI)AfAm 36 (>60 ml/min/1.73 sqM) 03/11/20 01:06 Est GFR (CKD-EPI)NonAf 31 (>60 ml/min/1.73 sqM) 03/11/20 01:06 Glucose 232 mg/dL (74-99) H 03/11/20 01:06 POC Glucose (mg/dL) 182 mg/dL (75-99) H 03/11/20 07:24 POC Glu Quality Control Auditor Venus Eisenberg 03/11/20 07:24 Calcium 8.5 mg/dL (8.4-10.2) 03/11/20 01:06 Total Bilirubin 0.4 mg/dL (0.2-1.3) 03/11/20 01:06 AST 27 U/L (17-59) 03/11/20 01:06 ALT 37 U/L (4-49) 03/11/20 01:06 Alkaline Phosphatase 129 U/L (38-126) H 03/11/20 01:06 Troponin I <0.012 ng/mL (0.000-0.034) 03/11/20 09:48 Total Protein 5.8 g/dL (6.3-8.2) L 03/11/20 01:06 Albumin 3.0 g/dL (3.5-5.0) L 03/11/20 01:06 Thrombosis Risk Factor Assmnt - DVT/VTE Prophylaxis DVT/VTE Prophylaxis: Pharmacologic Prophylaxis ordered - Choose All That Apply Each Risk Factor Represents 3 Points: Age 75 years or older Thrombosis Risk Factor Assessment Total Risk Factor Score: 3 Thrombosis Risk Factor Assessment Level: Moderate Risk Assessment and Plan Plan: 1. Left facial droop with dysarthria, present prior to admission, patient will be seen consultation by neurology, try to obtain MRI of the brain however contrast studies cannot be performed secondary to elevated creatinine patient is on aspirin 325 mg daily, echocardiogram was performed recently, 2. Acute diastolic CHF with pleural effusion mild, Lasix 40 mg every 12 hours, check for postvoid residuals, patient could have urinary retention causing worsening of symptoms, last EF was 50-55%, with concentric LVH severe, LA size dilated, mild to moderate aortic sclerosis, mild to moderate mitral regurgitation 02/2020. Consult with cardiology, Lasix 40 mg twice a day iv, 3. Pseudobulbar affect with underlying dementia and behavior disorder, we will discontinue Seroquel this currently is in a tapering QDR dose reduction from the ECF, decreased Nuedexta 1 a day, Xanax 0.25 mg 3 times a day as the patient is more somnolent today. Check for B12 and TSH 4. Diabetes mellitus type 2 on metformin, Tradjenta, and hold off glimepiride secondary to unknown dietary requirements at this time 5 Hypertension on Lopressor 6. Hyperlipidemia on Lipitor 7. Anemia with enlarged RBC cell volume check for B12 levels 8. Elevated PSA, check free PSA and postvoid residual consult were made with urology at the [facility] however secondary to the covid lockdown proper biopsy has not been obtained, patient will need urology evaluation should there be complications related to the elevated PSA Flomax twice a day 9. 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 Acute respiratory failure secondary to CHF, also suspect aspiration pneumonia, Zosyn started, PT OT and speech eval 11. DVT prophylaxis 12. Dysthymia, on Lexapro 20 13 History of dementia on Aricept code status DNR no feeding tube
--- NOTE | 2020-03-11 14:08 | P.CNNES ---
History of Present Illness Consult date: 03/11/20 Reason for Consult: Slurred speech History of Present Illness: This is an 84-year-old gentleman with medical history of advanced dementia, diabetes mellitus 2, hypertension, hyperlipidemia and aortic aneurysm that presented to the emergency department via EMS on 03/11/2020 at 00:22, for acute left facial droop and slurring of the speech. He was last seen normal by his nurse at 2300 and the he was in his usual state of health. History was obtained from the medical record since unable to obtain the history from the patient. I attempted to contact the patient's son via phone but no response. Patient usually has a clear speech at baseline Per medical record the patient has advanced dementia but he is alert oriented to self only. He does have baseline with behavioral issues. And he is usually restless trying to get out of bed. He seems that Seroquel was added the about 7 days ago. Per the primary care's note is that mention the patient has pseudobulbar affect depression. Workup in the hospital consisted of: Initial vital signs: Blood pressure of 132/77, heart rate of 77, respiratory of 18, temperature of 97.1 Fahrenheit oral, pulse ox of [address] of the head was read as reported as cerebral atrophy at. Hydrocephalus. No change compared to old exam (04/23/2018). I did review the CT of the head and I found that the patient has mild to minimal moderate diffuse atrophy by the the patient does have hydrocephalus of all ventricle and proportion to the patient's atrophy. EKG was reported as sinus bradycardia, ventricle rate of 53. Prolonged QT. The QT QTC was 524/491 ms. Chest x-ray was reported as congestive heart failure and pulmonary edema appears worse than the last exam. Pleural fluid unchanged. Duplex was performed and was reported as exam is limited as the patient would not cooperate. No hemodynamic significant internal carotid artery stenosis on either side. Mild to moderate of his chronic change at the bifurcation. Unable to adequately visualize the vertebral artery due to exam of dictation. Of note spoke with the patient's son (Doni) as well as [id number] phone and they stated that that the patient has been having shuffling gaits for at least 7-8 years. His memory issues and they felt like had to be at least 4 years or a little bit more and they said that for the most part his remote memory is intact and they felt his memory has been progressively getting worse to the point that he doesn't know the name of his children. He also had episodes of urinary incontinence for at least the last 4 years. He's been falling for couple years and he is been non-ambulatory for at least one year. They notified me that since the patient's about 4 years ago he's been having crying episodes been feeling suicidal. He doesn't have any inappropriate laughter episodes. He's been at [facility] on the [place] for the past 1 year since the patient could not take care of himself. Baseline he is only oriented to self. Review of Systems Unable to assess the full review of systems because of the patient condition but the pertinent positives negative as per HPI. Past Medical History Past Medical History: Heart Failure, Dementia, Diabetes Mellitus, Hyperlipidemia, Hypertension Additional Past Medical History / Comment(s): NIDDM type II, aortic aneursym, abdominal hernia, bilateral cataracts pseudobulbar affect disorder depression severe elevated PSA workup in progress History of Any Multi-Drug Resistant Organisms: None Reported Past Surgical History: No Surgical Hx Reported, Tonsillectomy Past Anesthesia/Blood Transfusion Reactions: No Reported Reaction Past Psychological History: Depression Additional Psychological History / Comment(s): . Smoking Status: Former smoker Past Alcohol Use History: None Reported Additional Past Alcohol Use History / Comment(s): Pt states he started smoking in 1949 and quit in 2008. Past Drug Use History: None Reported - Past Family History Father Family Medical History: CVA/TIA Son(s) Additional Family Medical History / Comment(s): He has 2 sons. One has coronary artery disease and a stent placed at age 58. He has a second son with hypertension, cholesterol, diabetes. Daughter(s) Additional Family Medical History / Comment(s): He has 3 daughters. Brother(s) Additional Family Medical History / Comment(s): Patient has a total of 6 brothers and one from a myocardial infarction. One at age 84 from a bowel problem but not cancer. Sister(s) Additional Family Medical History / Comment(s): He has 4 sisters. Medications and Allergies Home Medications Medication Instructions Recorded Confirmed Type Simvastatin [Zocor] 10 mg PO HS@2100 01/04/17 03/11/20 History Acetaminophen Tab [Tylenol] 650 mg PO Q4H PRN 02/13/20 03/11/20 History Aspirin [Adult Low Dose Aspirin EC] 81 mg PO DAILY@89902/13/20 03/11/20 History Dextromethorphan HBr/Quinidine 1 cap PO BID@0900,209902/13/20 03/11/20 History [Nuedexta 20-10 mg Capsule] Donepezil [Aricept] 10 mg PO HS@209902/13/20 03/11/20 History Escitalopram [Lexapro] 20 mg PO DAILY@89902/13/20 03/11/20 History Glucerna Shake 240 ml PO TID@1000,1400,199902/13/20 03/11/20 History Loperamide HCl [Imodium A-D] 2 - 4 mg PO QID PRN 02/13/20 03/11/20 History Melatonin 10 mg PO HS@209902/13/20 03/11/20 History Menthol-Camphor Lotion [Sarna 1 applic TOPICAL BID 02/13/20 03/11/20 History Lotion 0.5%-0.5%] Menthol-Camphor Lotion [Sarna 1 applic TOPICAL DAILY PRN 02/13/20 03/11/20 History Lotion 0.5%-0.5%] Metoprolol Tartrate 12.5 mg PO BID@0900,209902/13/20 03/11/20 History Nitroglycerin Sl Tabs [Nitrostat] 0.4 mg SL Q5M PRN 02/13/20 03/11/20 History Tamsulosin HCl [Flomax] 0.4 mg PO BID@0900,209902/13/20 03/11/20 History busPIRone HCL 15 mg PO BID@0900,209902/13/20 03/11/20 History Furosemide [Lasix] 40 mg PO DAILY@0900 #0 02/15/20 03/11/20 Rx Linagliptin [Tradjenta] 5 mg PO DAILY tablet 02/15/20 03/11/20 Rx hydrALAZINE HCL [Apresoline] 50 mg PO BID tab 02/15/20 03/11/20 Rx ALPRAZolam [Xanax] 0.5 mg PO TID@0900,1300,2100 03/11/20 03/11/20 History HYDROcodone/APAP 5-325MG [[place] 1 tab PO DIRECTED 03/11/20 03/11/20 History 5-325] HYDROcodone/APAP 5-325MG [[place] 1 tab PO Q12HR PRN 03/11/20 03/11/20 History 5-325] QUEtiapine [SEROquel] 12.5 mg PO HS@2100 03/11/20 03/11/20 History Allergies Allergy/AdvReac Type Severity Reaction Status Date / Time strawberry Allergy Unknown Verified 03/11/20 11:33 Physical Examination - Vital Signs Vital Signs: Vital Signs Temp Pulse Pulse Pulse Resp BP BP 03/11/20 13:00 50 L 16 112/44 03/11/20 09:04 03/11/20 08:48 59 L 119/73 03/11/20 03:30 53 L 18 133/60 03/11/20 03:13 97.1 F L 64 16 129/61 03/11/20 00:26 97.1 F L 77 18 132/77 Pulse Ox 03/11/20 13:00 93 L 03/11/20 09:04 93 L 03/11/20 08:48 88 L 03/11/20 03:30 93 L 03/11/20 03:13 93 L 03/11/20 00:26 96 Intake and Output 03/10/20 03/11/20 03/11/20 22:59 06:59 14:59 Other: Voiding Method Diaper Diaper Incontinent Incontinent # Voids 1 Weight 86.183 kg GENERAL: The patient is lying in bed and is not in acute distress. CHEST: The heart rate is regular rate rhythm. No murmurs to auscultation. No carotid bruit bilaterally. LUNG: Clear to auscultation bilaterally no wheezing noted throughout. Not labored breathing. ABDOMEN/GI: Bowel sounds present in all 4 quadrants. No tenderness to palpation throughout. NEUROLOGICAL: Limited because of patient cooperation. Higher mental function: The patient is awake, alert, oriented to self only. Upon asking him the year and place he stated "I don't know and I don't care". No following command. No aphasia. No neglect. Cranial nerves: The pupils are round, equal and reactive to light. Visual soto are full to threat throughout. Extraocular movement is intact no nystagmus is noted. Facial sensation is unable to assess. The facial strength has mild left lower facial weakness. Mild dysarthria. Motor: Gait is defered. The strength is moving all extremities above gravity and no focality noted. Normal tone and bulk. Cerebellum: Unable to assess Sensation: Sensation is intact to painful stimuli throughout. Reflexes (right/left): Unable to assess because of patient's cooperation. Plantars are downgoing bilaterally. Results On presentation the potassium was 5.3. Creatinine on presentation is 1.9 [place] the patient's creatinine is the predominantly less than 1.4 he did have instance where was a 1.6-1.9 on March 09 it was 2.2 AST is 27 ALTs of 37. Albumin is 3.0. Coagulation study: PT is 10.4, INR 1.0 PTT of 29.9 Patient last hemoglobin A1c was on February 2019 was 9.0. Last vitamin B12 was 879 and that was in the April 2018 - Laboratory Findings CBC and BMP: 03/11/20 01:06 03/11/20 01:06 Abnormal Lab Findings: Abnormal Labs 03/11/20 03/11/20 03/11/20 01:06 01:06 07:24 RBC 3.30 L Hgb 10.6 L Hct 33.1 L MCV 100.2 H Eosinophils # 0.8 H Sodium 136 L Potassium 5.3 H BUN 52 H Creatinine 1.89 H Glucose 232 H POC Glucose (mg/dL) 182 H Alkaline Phosphatase 129 H Total Protein 5.8 L Albumin 3.0 L 03/11/20 12:18 RBC Hgb Hct MCV Eosinophils # Sodium Potassium BUN Creatinine Glucose POC Glucose (mg/dL) 207 H Alkaline Phosphatase Total Protein Albumin Assessment and Plan Assessment: New onset Left facial droop with dysarthria likely due to stroke. Chronic Normal Pressure Hydrocephalus (Shuffling gait for 7-8 years, urinary incontinence and confusion). Dementia possibly due to normal pressure hydrocephalus. Also worsening since the patient about 4 years ago also a component of depression. Depression with pseudobulbar affect Acute kidney insufficiency Diabetes mellitus type 2 Hypertension Hyperlipidemia Acute diastolic congestive heart failure with pleural effusion Plan: CT of the head was read as reported as cerebral atrophy at. Hydrocephalus. No change compared to old exam (04/23/2018). I did review the CT of the head and I found that the patient has mild to minimal moderate diffuse atrophy by the the patient does have hydrocephalus of all ventricle and proportion to the patient's atrophy. Carotid Duplex was performed and was reported as exam is limited as the patient would not cooperate. No hemodynamic significant internal carotid artery stenosis on either side. Mild to moderate of his chronic change at the bifurcation. Unable to adequately visualize the vertebral artery due to exam of dictation. MRI the brain without contrast ordered by the primary team----Daughter wanted it canceled since she said her father will not cooperate for the exam. Patient was started on aspirin 81 mg daily and I started the Lipitor 20 mg aj y. Lipid profile: ordered 2-D echo is also pending TSH pending PT, OT and CLARIFIER OPERATOR HELPER are consulted. CT of the head was read as reported as cerebral atrophy at. Hydrocephalus. No change compared to old exam (04/23/2018). I did review the CT of the head and I found that the patient has mild to minimal moderate diffuse atrophy by the the patient does have hydrocephalus of all ventricle and proportion to the patient's atrophy. EKG was reported as sinus bradycardia, ventricle rate of 53. Prolonged QT. The QT QTC was 524/491 ms. Chest x-ray was reported as congestive heart failure and pulmonary edema appears worse than the last exam. Pleural fluid unchanged. Regarding his dementia I ordered vitamin B12, folate. He is on Aricept 10 mg daily. Regarding his depression he is on Lexapro 20 mg daily. Regarding the patient chronic normal pressure hydrocephalus I explained to the patient daughter (holds power of transactional attorney), son as well as the [id number] that the patient's presentation that seem to correlate with this condition and they stated that that he has been having it for 7-8 years. They refused any intervention as inpatient. The plan was discussed with patient and son via phone as well as the plan was discussed with the primary team. Thank you for the consult. [place] M.D. Neuro-hospitalist Time with Patient: Greater than 30
--- NOTE | 2020-03-11 15:41 | P.CRDCN ---
History of Present Illness Consult date: 03/11/20 Consult reason: congestive heart failure History of present illness: HISTORY OF PRESENTING ILLNESS This is a pleasant but very confused 84-year-old male who follows with Dr. Lobato in the office. Patient has advanced dementia and currently lethargic and not answering questions so most of history is obtained through the chart. Patient had recent workup including echocardiogram in April 2019 which showed normal LV function and mild mitral regurgitation. He was recently seen approximately one month ago by cardiology due to diastolic heart failure with bilateral pleural effusions and patient was diuresis. A 2-D echocardiogram was performed 02/13/2020 which showed ejection fraction 50-55% percent, mild to moderate mitral regurgitation, no significant aortic stenosis, no pericardial effusion. Patient has a history of diabetes mellitus, hypertension, hyperlipidemia, dementia, aortic aneurysm who is admitted secondary to new onset of slurred speech and questionable facial droop. We are asked to see in consultation regarding heart failure. Patient does have mild lower extremity edema and he had a chest x-ray performed which showed bilateral pulmonary edema and pleural effusions consistent with congestive heart failure. He is additionally being worked up by neurology to rule out stroke. DIAGNOSTICS EKG reveals sinus bradycardia with heart rate 53, normal axis, borderline prolonged QT. Chest xray bilateral pleural effusions, pulmonary congestion, consistent with congestive heart failure. Laboratory reviewed, prior BNP from 02/12/2020 5300, white blood cell count 10.2, hemoglobin 10.6, potassium 5.3, creatinine 1.89 with baseline 1.6-1.9, troponin negative 2. Current cardiac medications include []. REVIEW OF SYSTEMS Unable to perform review of systems secondary to patient being confused and not answering questions PHYSICAL EXAMINATION Blood pressure 112/44 heart rate 50 afebrile and maintaining oxygen saturation on 2 L nasal cannula. CONSTITUTIONAL: No apparent distress, lethargic, not cooperative with any part of exam, curled up in a blanket, chronically ill-appearing. HEENT: Head is normocephalic. Pupils are equal, round. Sclerae anicteric. Mucous membranes of the mouth are moist. No carotid bruit. CHEST EXAMINATION: + Bilateral crackles at bases HEART EXAMINATION: Regular rate and rhythm. S1, S2 heard. No murmurs, gallops or rub. ABDOMEN: Soft, nontender. Positive bowel sounds. EXTREMITIES: 2+ peripheral pulses, 1+ lower extremity edema and no calf tenderness. NEUROLOGIC EXAMINATION: Patient is lethargic and not cooperative with exam ASSESSMENT 1. Acute on chronic diastolic heart failure 2. Altered mental status of unclear etiology, rule out stroke versus metabolic 3. Baseline dementia 4. Hypertension 5. Diabetes mellitus 6. History of aortic aneurysm 7. Chronic kidney disease, appears at baseline creatinine PLAN Patient with somewhat similar admission one month ago with workup including an echo which showed ejection fraction 50-55%, mild to moderate mitral regurgitation, no pericardial effusion and no other significant valvular disease. No reason to repeat echo. Trial Lasix 80 mg IV twice a day. Patient does have chronic kidney disease however appears at baseline creatinine and patient may need a higher dose than the 40 mg IV ordered. Monitor kidney function. Continue with blood pressure control. Your workup of altered mental status. Further recommendations to follow. Past Medical History Past Medical History: Heart Failure, Dementia, Diabetes Mellitus, Hyperlipidemia, Hypertension Additional Past Medical History / Comment(s): NIDDM type II, aortic aneursym, abdominal hernia, bilateral cataracts pseudobulbar affect disorder depression severe elevated PSA workup in progress History of Any Multi-Drug Resistant Organisms: None Reported Past Surgical History: No Surgical Hx Reported, Tonsillectomy Past Anesthesia/Blood Transfusion Reactions: No Reported Reaction Past Psychological History: Depression Additional Psychological History / Comment(s): . Smoking Status: Former smoker Past Alcohol Use History: None Reported Additional Past Alcohol Use History / Comment(s): Pt states he started smoking in 1949 and quit in 2008. Past Drug Use History: None Reported - Past Family History Father Family Medical History: CVA/TIA Son(s) Additional Family Medical History / Comment(s): He has 2 sons. One has coronary artery disease and a stent placed at age 58. He has a second son with hypertension, cholesterol, diabetes. Daughter(s) Additional Family Medical History / Comment(s): He has 3 daughters. Brother(s) Additional Family Medical History / Comment(s): Patient has a total of 6 brothers and one from a myocardial infarction. One at age 84 from a bowel problem but not cancer. Sister(s) Additional Family Medical History / Comment(s): He has 4 sisters. Medications and Allergies Home Medications Medication Instructions Recorded Confirmed Type Simvastatin [Zocor] 10 mg PO HS@2100 01/04/17 03/11/20 History Acetaminophen Tab [Tylenol] 650 mg PO Q4H PRN 02/13/20 03/11/20 History Aspirin [Adult Low Dose Aspirin EC] 81 mg PO DAILY@89902/13/20 03/11/20 History Dextromethorphan HBr/Quinidine 1 cap PO BID@0900,209902/13/20 03/11/20 History [Nuedexta 20-10 mg Capsule] Donepezil [Aricept] 10 mg PO HS@209902/13/20 03/11/20 History Escitalopram [Lexapro] 20 mg PO DAILY@89902/13/20 03/11/20 History Glucerna Shake 240 ml PO TID@1000,1400,199902/13/20 03/11/20 History Loperamide HCl [Imodium A-D] 2 - 4 mg PO QID PRN 02/13/20 03/11/20 History Melatonin 10 mg PO HS@209902/13/20 03/11/20 History Menthol-Camphor Lotion [Sarna 1 applic TOPICAL BID 02/13/20 03/11/20 History Lotion 0.5%-0.5%] Menthol-Camphor Lotion [Sarna 1 applic TOPICAL DAILY PRN 02/13/20 03/11/20 History Lotion 0.5%-0.5%] Metoprolol Tartrate 12.5 mg PO BID@0900,209902/13/20 03/11/20 History Nitroglycerin Sl Tabs [Nitrostat] 0.4 mg SL Q5M PRN 02/13/20 03/11/20 History Tamsulosin HCl [Flomax] 0.4 mg PO BID@0900,209902/13/20 03/11/20 History busPIRone HCL 15 mg PO BID@0900,209902/13/20 03/11/20 History Furosemide [Lasix] 40 mg PO DAILY@0900 #0 02/15/20 03/11/20 Rx Linagliptin [Tradjenta] 5 mg PO DAILY tablet 02/15/20 03/11/20 Rx hydrALAZINE HCL [Apresoline] 50 mg PO BID tab 02/15/20 03/11/20 Rx ALPRAZolam [Xanax] 0.5 mg PO TID@0900,1300,2100 03/11/20 03/11/20 History HYDROcodone/APAP 5-325MG [[place] 1 tab PO DIRECTED 03/11/20 03/11/20 History 5-325] HYDROcodone/APAP 5-325MG [[place] 1 tab PO Q12HR PRN 03/11/20 03/11/20 History 5-325] QUEtiapine [SEROquel] 12.5 mg PO HS@2100 03/11/20 03/11/20 History Allergies Allergy/AdvReac Type Severity Reaction Status Date / Time strawberry Allergy Unknown Verified 03/11/20 11:33 Physical Exam Vitals: Vital Signs Temp Pulse Pulse Pulse Resp BP BP 03/11/20 13:00 50 L 16 112/44 03/11/20 09:04 03/11/20 08:48 59 L 119/73 03/11/20 03:30 53 L 18 133/60 03/11/20 03:13 97.1 F L 64 16 129/61 03/11/20 00:26 97.1 F L 77 18 132/77 Pulse Ox 03/11/20 13:00 93 L 03/11/20 09:04 93 L 03/11/20 08:48 88 L 03/11/20 03:30 93 L 03/11/20 03:13 93 L 03/11/20 00:26 96 Intake and Output 03/11/20 03/11/20 03/11/20 06:59 14:59 22:59 Other: Voiding Method Diaper Diaper Incontinent Incontinent # Voids 1 Weight 86.183 kg Results 03/11/20 01:06 03/11/20 01:06 Cardiac Enzymes 03/11/20 03/11/20 03/11/20 Range/Units 01:06 01:06 09:48 AST 27 (17-59) U/L Troponin I <0.012 <0.012 (0.000-0.034) ng/mL Coagulation 03/11/20 Range/Units 01:06 PT 10.4 (9.0-12.0) sec APTT 29.9 (22.0-30.0) sec Lipids 03/11/20 Range/Units 01:06 Triglycerides 73 (<150) mg/dL Cholesterol 98 (<200) mg/dL HDL Cholesterol 39 L (40-60) mg/dL CBC 03/11/20 Range/Units 01:06 WBC 10.2 (3.8-10.6) k/uL RBC 3.30 L (4.30-5.90) m/uL Hgb 10.6 L (13.0-17.5) gm/dL Hct 33.1 L (39.0-53.0) % Plt Count 182 (150-450) k/uL Comprehensive Metabolic Panel 03/11/20 Range/Units 01:06 Sodium 136 L (137-145) mmol/L Potassium 5.3 H (3.5-5.1) mmol/L Chloride 103 (98-107) mmol/L Carbon Dioxide 27 (22-30) mmol/L BUN 52 H (9-20) mg/dL Creatinine 1.89 H (0.66-1.25) mg/dL Glucose 232 H (74-99) mg/dL Calcium 8.5 (8.4-10.2) mg/dL AST 27 (17-59) U/L ALT 37 (4-49) U/L Alkaline Phosphatase 129 H (38-126) U/L Total Protein 5.8 L (6.3-8.2) g/dL Albumin 3.0 L (3.5-5.0) g/dL Current Medications Generic Name Dose Route Start Last Admin Trade Name Freq PRN Reason Stop Dose Admin Acetaminophen 650 mg 03/11/20 09:20 Tylenol Tab PO Q4H PRN Fever Hydrocodone Bitart/Acetaminophen 1 each 03/11/20 12:39 [place] 5-325 PO Q6HR PRN Pain Alprazolam 0.25 mg 03/11/20 16:00 Xanax PO TID [facility] Aspirin 325 mg 03/11/20 09:00 03/11/20 08:30 Aspirin PO 325 mg DAILY [facility] Administration Aspirin 81 mg 03/12/20 09:00 Aspirin PO DAILY@0900 [facility] Atorvastatin Calcium 20 mg 03/11/20 21:00 Lipitor PO HS [facility] Buspirone HCl 15 mg 03/11/20 21:00 Buspar PO BID@0900,2100 [facility] Donepezil HCl 10 mg 03/11/20 21:00 Aricept PO HS@2100 [facility] Escitalopram Oxalate 20 mg 03/12/20 09:00 Lexapro PO DAILY@0900 [facility] Furosemide 40 mg 03/11/20 09:30 03/11/20 11:40 Lasix IV Not Given Q12HR [facility] Hydralazine HCl 50 mg 03/11/20 09:30 03/11/20 11:57 Apresoline PO 50 mg BID [facility] Administration Piperacillin Sod/Tazobactam 100 mls @ 25 mls/hr 03/11/20 09:30 03/11/20 11:40 Sod 3.375 gm/ Sodium Chloride IVPB 25 mls/hr Q12HR [facility] Administration Linagliptin 5 mg 03/11/20 09:30 03/11/20 11:57 Tradjenta PO 5 mg DAILY [facility] Administration Melatonin 10 mg 03/11/20 21:00 Melatonin PO HS@2100 [facility] Metoprolol Tartrate 12.5 mg 03/11/20 21:00 Lopressor PO BID@0900,2100 [facility] Naloxone HCl 0.2 mg 03/11/20 02:26 Narcan IV Q2M PRN Opioid Reversal Non-Formulary Medication 1 cap 03/12/20 09:00 Dextromethorphan Hbr/Quinidine [Nuedexta 20-10 Mg Capsule] PO DAILY [facility] Tamsulosin HCl 0.4 mg 03/11/20 21:00 Flomax PO BID@0900,2100 [facility] Intake and Output 03/11/20 03/11/20 03/11/20 06:59 14:59 22:59 Other: Voiding Method Diaper Diaper Incontinent Incontinent # Voids 1 Weight 86.183 kg 03/11/20 01:06 03/11/20 01:06
[2020-03-11 15:57] LABS: Creatine Kinase 59 U/L (55-170)
[2020-03-11 16:10] LABS: Creatine Kinase MB 6.1 ng/mL (0.0-2.4); Troponin I <0.012 ng/mL (0.000-0.034)
[2020-03-11 17:29] LABS: Glucose,Whole Blood 170 mg/dL (75-99)
[2020-03-11] MEDS: ALPRAZolam 0.25 MG TAB PO SCH (18:04)
[2020-03-11] MEDS: DONEPEZIL 10 MG TAB PO SCH (19:44)
[2020-03-11] MEDS: TAMSULOSIN 0.4 MG CAP.ER.24H PO SCH (19:44)
[2020-03-11] MEDS: busPIRone HCl 5 MG TAB PO SCH (19:44)
[2020-03-11] MEDS: MELATONIN 5 MG TABLET PO SCH (19:44)
[2020-03-11] MEDS: ATORVASTATIN 20 MG TAB PO SCH (19:44)
[2020-03-11] MEDS: FUROSEMIDE 10 MG/ML 10 ML VIAL IV SCH (20:00)
[2020-03-11] MEDS: METOPROLOL TARTRATE 12.5 MG TAB PO SCH (20:01)
[2020-03-11 20:28] LABS: Glucose,Whole Blood 271 mg/dL (75-99)
[2020-03-11] MEDS ORDERED: NON FORMULARY DRUG (Dextromethorphan Hbr/Quinidine [Nuedexta 20-10 Mg Capsule] 1 CAP) PO SCH (21:00)
[2020-03-11 21:23] LABS: Creatine Kinase 59 U/L (55-170)
[2020-03-11 21:37] LABS: Creatine Kinase MB 6.2 ng/mL (0.0-2.4); Troponin I <0.012 ng/mL (0.000-0.034)
[2020-03-11 23:15] LABS: Folate, Serum 11.2 ng/mL
[2020-03-12] MEDS: ALPRAZolam 0.25 MG TAB PO SCH ×4 (00:17→21:22)
[2020-03-12 01:58] LABS: Glucose,Whole Blood 210 mg/dL (75-99)
[2020-03-12 06:54] LABS: Glucose,Whole Blood 190 mg/dL (75-99)
[2020-03-12 07:34] LABS: Basophils # (A) 0.1 k/uL (0-0.2); Basophils % (A) 1 %; Eosinophils # (A) 0.5 k/uL (0-0.7); Eosinophils % (A) 6 %; HCT 34.5 % (39.0-53.0); HGB 10.6 gm/dL (13.0-17.5); Hypochromasia Slight; Lymphocytes # (A) 0.8 k/uL (1.0-4.8); Lymphocytes % (A) 10 %; MCHC 30.7 g/dL (31.0-37.0); MCV 100.9 fL (80.0-100.0); Macrocytosis Slight; Mean Platelet Volume 8.9; Monocytes # (A) 0.4 k/uL (0-1.0); Monocytes % (A) 4 %; Neutrophils # (A) 6.7 k/uL (1.3-7.7); Neutrophils % (A) 79 %; Platelet Count 176 k/uL (150-450); RBC 3.42 m/uL (4.30-5.90); RDW 13.6 % (11.5-15.5); WBC 8.5 k/uL (3.8-10.6)
[2020-03-12] MEDS: busPIRone HCl 5 MG TAB PO SCH ×2 (07:37→21:21)
[2020-03-12] MEDS: ASPIRIN 325 MG TAB PO SCH (07:37)
[2020-03-12] MEDS: TAMSULOSIN 0.4 MG CAP.ER.24H PO SCH ×2 (07:38→21:22)
[2020-03-12] MEDS: ASPIRIN 81 MG PO SCH (07:38)
[2020-03-12] MEDS: ESCITALOPRAM 20 MG TAB PO SCH (07:38)
[2020-03-12] MEDS: hydrALAZINE HCL 50 MG TAB PO SCH ×2 (07:38→21:21)
[2020-03-12] MEDS: LINAGLIPTIN 5 MG TABLET PO SCH (07:38)
[2020-03-12] MEDS: METOPROLOL TARTRATE 12.5 MG TAB PO SCH ×2 (07:38→21:21)
[2020-03-12] MEDS: NON FORMULARY DRUG (Dextromethorphan Hbr/Quinidine [Nuedexta 20-10 Mg Capsule] 1 CAP) PO SCH (07:39)
[2020-03-12 07:54] LABS: Albumin 3.2 g/dL (3.5-5.0); Calcium 8.8 mg/dL (8.4-10.2); Potassium 4.8 mmol/L (3.5-5.1); Total Bilirubin 0.6 mg/dL (0.2-1.3)
--- NOTE | 2020-03-12 08:31 | US ---
EXAMINATION TYPE: US abdomen complete DATE OF EXAM: 03/12/2020 COMPARISON: CT 2019 CLINICAL HISTORY: hydronephrosis, elevated psa elev creat. Patient disoriented - poor historian. Pain . EXAM MEASUREMENTS: Liver Length: 20.0 cm Gallbladder Wall: 0.2 cm CBD: 0.5 cm Spleen: 10.8 cm Right Kidney: 9.8 x 4.8 x 5.2 cm Left Kidney: 9.9 x 5.5 x 4.7 cm Difficult study due to patient uncooperative, moving and yelling during exam. Pancreas: visualized portions appear mildly heterogeneous, limited by overlying midline bowel gas Liver: Homogeneous Gallbladder: borderline hydropic, 1.0cm shadowing stone seen Evidence for sonographic Moe's sign: n/a CBD: wnl Spleen: wnl Right Kidney: wnl Left Kidney: wnl Upper IVC: wnl Abd Aorta: proximal portion wnl, mid and distal portion obscured by overlying midline bowel gas The visualized liver is homogenous. The intrahepatic portion of the IVC and visualized proximal abdo sergio aorta are within normal limits. There is a single mobile shadowing 10 mm gallstone. Common bi le duct is nondilated. The visualized portions of the pancreas are homogenous. The spleen is unrema rkable. Kidneys are symmetric and free of hydronephrosis. No renal lesions are seen. IMPRESSION: No hydronephrosis noted bilaterally. Suboptimal study without acute finding identified.
[2020-03-12] MEDS ORDERED: FUROSEMIDE 40 MG TAB PO SCH (09:00)
[2020-03-12] MEDS: PIPERACILLIN-TAZOBACTAM 3.375 GM in SODIUM CHLORIDE 0.9% 100 ML IVPB SCH ×2 (09:03→16:53)
[2020-03-12] MEDS: FUROSEMIDE 10 MG/ML 10 ML VIAL IV SCH (09:04)
--- NOTE | 2020-03-12 10:59 | P.PN ---
Subjective Progress Note Date: 03/12/20 HISTORY OF PRESENT ILLNESS This is an 84-year-old male patient of Dr. Mcadams residing at [facility] in the [place] with history of diabetes mellitus type 2, hypertension hyperlipidemia dys lipidemia, dementia aortic aneurysm, pseudobulbar affect depression, admitted to the emergency room secondary to new onset slurred speech that happened at bedtime, this is also noticeable by the nursing staff of a facial droop, prior to these patient has been baseline with some behaviors, has difficulty with reorienting his behaviors, uncomfortable either sitting down and laying down and standing up, the medications were added over the past 2 weeks to keisha his symptoms, however it looks like these are more as lumbar stenosis type pain, no cold has elevated most of his discomfort, patient's unable to report any of his symptoms, where in the process of weaning off his Seroquel 25 which was started 7 days ago. When seen in the emergency room, patient cannot provide much of the history, there is also a facial droop that was noted, when seen by myself today, patient awakens, can follow verbal commands however cannot feel feel a full neuro evaluation. There is a facial droop noted left side, unable to elicit a full mill work on the left arm, able to mill work on the right arm, and able to move legs bilaterally. 03/12: Patient continues to have some right-sided weakness. PT, OT and speech therapies will be seeing him today. Patient is followed by cardiology for acute on chronic diastolic heart failure Renal ultrasound reveals no hydronephrosis bilaterally. Suboptimal study without acute finding identified. Carotid ultrasound revealed no hemodynamically significant internal carotid artery stenosis on either side. Mild to moderate atherosclerotic change the bifurcations. Unable to adequately visualize the vertebral arteries due to exam limitations. MRI was canceled as daughter wanted it canceled as he is unable to cooperate for exam. Patient has been seen by neurology for chronic normal pressure hydrocephalus. Neurology has recommended aspirin 81 mg and Lipitor 20 g daily. Patient is also on Aricept 10 mg daily for dementia. Echocardiogram from February 12 revealed EF of 50-55% with severe concentric left ventricle hypertrophy, mild to moderate aortic valve sclerosis, [id number] mitral regurgitation. Discharge plan will be to return to [facility] on the [place] REVIEW OF SYSTEMS Unable to obtain due to mental status, dementia. PHYSICAL EXAMINATION Gen: This is an 84-year-old male patient. He is resting in an bed and appears to be comfortable and in no acute distress. HEENT: Head is atraumatic, normocephalic. Pupils equal, round. Sclerae is anicteric. NECK: Supple. No JVD. No lymphadenopathy. No thyromegaly. LUNGS: Minimal bilateral crackles at the bases. No wheezes or rhonchi. No intercostal retractions. HEART: Regular rate and rhythm. No murmur. ABDOMEN: Soft. Bowel sounds are present. No masses. No tenderness. EXTREMITIES: No pedal edema. No calf tenderness. NEUROLOGICAL: Patient is awake, alert and oriented to person only. Patient is confused but able to follow simple commands. Generalized weakness noted. ASSESSMENT AND PLAN 1. Left facial droop and shuffling gait secondary to chronic hydrocephalus. Neurology consult appreciated. Patient to be on aspirin 81 mg daily and Lipitor. 2. Acute on chronic diastolic heart failure with pleural effusion. Continue Lasix 80 mg IV every 12 hours. Consult with cardiology appreciated. 3. 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 Seroquel was discontinued on a tapering dose and decrease Nuedexta 1 a day, Xanax 0.25 mg 3 times a day. Continue Aricept. 4. Diabetes mellitus type 2. Continue metformin, Tradjenta. Hold glimepiride. 5. Hypertension. Continue Lopressor, hydralazine 50 mg twice daily. 6. Hyperlipidemia continue Lipitor. 7. Anemia of chronic disease.. 8. Elevated PSA. Patient have follow-up with urology as an outpatient. Continue Flomax twice daily. 9. 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 Ultrasound negative for hydronephrosis. 10. Acute hypoxic respiratory failure secondary to heart failure, possible aspiration pneumonia. Continue Zosyn. 11. DVT prophylaxis. Heparin subcu. 12. GI prophylaxis. Protonix.. Patient will be admitted to the hospital for a minimum of 2 night stay. Discharge plan: Return to [facility] under the care of Dr. Mcadams Impression and plan of care have been directed as dictated by the signing physician. Mena Gallardo nurse practitioner acting as scribe for signing physician. Objective - Vital Signs Vital signs: Vital Signs Temp 98.5 F 03/12/20 07:44 Pulse 52 L 03/12/20 07:44 Resp 18 03/12/20 07:44 BP 170/65 03/12/20 07:44 Pulse Ox 90 L 03/12/20 07:44 Intake & Output 03/11/20 03/12/20 03/12/20 18:59 06:59 18:59 Output Total 450 Balance -450 Weight 81.873 kg Output: Urine 450 Other: Voiding Method Diaper Diaper Incontinent Incontinent # Voids 1 3 - Labs CBC & Chem 7: 03/12/20 06:50 03/12/20 06:50 Labs: Abnormal Lab Results - Last 24 Hours (Table) 03/11/20 03/11/20 03/11/20 Range/Units 01:06 12:18 15:23 RBC (4.30-5.90) m/uL Hgb (13.0-17.5) gm/dL Hct (39.0-53.0) % MCV (80.0-100.0) fL MCHC (31.0-37.0) g/dL Lymphocytes # (1.0-4.8) k/uL BUN (9-20) mg/dL Creatinine (0.66-1.25) mg/dL Glucose (74-99) mg/dL POC Glucose (mg/dL) 207 H (75-99) mg/dL CK-MB (CK-2) 6.1 H (0.0-2.4) ng/mL Total Protein (6.3-8.2) g/dL Albumin (3.5-5.0) g/dL HDL Cholesterol 39 L (40-60) mg/dL 03/11/20 03/11/20 03/11/20 Range/Units 17:23 20:13 20:59 RBC (4.30-5.90) m/uL Hgb (13.0-17.5) gm/dL Hct (39.0-53.0) % MCV (80.0-100.0) fL MCHC (31.0-37.0) g/dL Lymphocytes # (1.0-4.8) k/uL BUN (9-20) mg/dL Creatinine (0.66-1.25) mg/dL Glucose (74-99) mg/dL POC Glucose (mg/dL) 170 H 271 H (75-99) mg/dL CK-MB (CK-2) 6.2 H (0.0-2.4) ng/mL Total Protein (6.3-8.2) g/dL Albumin (3.5-5.0) g/dL HDL Cholesterol (40-60) mg/dL 03/12/20 03/12/20 03/12/20 Range/Units 01:56 06:46 06:50 RBC 3.42 L (4.30-5.90) m/uL Hgb 10.6 L (13.0-17.5) gm/dL Hct 34.5 L (39.0-53.0) % MCV 100.9 H (80.0-100.0) fL MCHC 30.7 L (31.0-37.0) g/dL Lymphocytes # 0.8 L (1.0-4.8) k/uL BUN (9-20) mg/dL Creatinine (0.66-1.25) mg/dL Glucose (74-99) mg/dL POC Glucose (mg/dL) 210 H 190 H (75-99) mg/dL CK-MB (CK-2) (0.0-2.4) ng/mL Total Protein (6.3-8.2) g/dL Albumin (3.5-5.0) g/dL HDL Cholesterol (40-60) mg/dL 03/12/20 Range/Units 06:50 RBC (4.30-5.90) m/uL Hgb (13.0-17.5) gm/dL Hct (39.0-53.0) % MCV (80.0-100.0) fL MCHC (31.0-37.0) g/dL Lymphocytes # (1.0-4.8) k/uL BUN 51 H (9-20) mg/dL Creatinine 2.15 H (0.66-1.25) mg/dL Glucose 194 H (74-99) mg/dL POC Glucose (mg/dL) (75-99) mg/dL CK-MB (CK-2) (0.0-2.4) ng/mL Total Protein 6.0 L (6.3-8.2) g/dL Albumin 3.2 L (3.5-5.0) g/dL HDL Cholesterol (40-60) mg/dL
--- NOTE | 2020-03-12 11:12 | XR ---
EXAMINATION TYPE: XR chest 1V portable DATE OF EXAM: 03/12/2020 CLINICAL HISTORY: Difficulty breathing progress study. History of CHF. TECHNIQUE: Single AP portable frontal view of the chest is obtained. COMPARISON: Chest x-ray from one day earlier and older studies. FINDINGS: Persistent cardiomegaly with improving interstitial prominence. Persistent right basilar o pacity. Atherosclerotic aorta redemonstrated. Osseous structures remain demineralized. IMPRESSION: Background chronic parenchymal interstitial change and cardiomegaly with improving bilate ral interstitial edema from one day earlier. Persistent small right pleural effusion and associated r ight basilar atelectasis and/or infiltrate.
[2020-03-12 11:33] LABS: Glucose,Whole Blood 195 mg/dL (75-99)
--- NOTE | 2020-03-12 14:18 | P.PN ---
Subjective HISTORY OF PRESENTING ILLNESS This is a pleasant but very confused 84-year-old male who follows with Dr. Lobato in the office. Patient has advanced dementia and currently lethargic and not answering questions so most of history is obtained through the chart. He was started on IV diuresis yesterday. Blood pressure 170/65 heart rate 52 afebrile maintaining oxygen saturation on room air. Laboratory data reviewed, WBC 8.5, hemoglobin 10.6, platelets 176, sodium 141, potassium 4.8, creatinine 2.15, cardiac enzymes negative 4 and TSH 3.99. Currently maintained on aspirin 81 mg daily, atorvastatin 20 mg at bedtime, Lasix 80 mg IV twice a day, hydralazine 50 mg twice a day and metoprolol 12.5 mg twice a day. Weight is down from 86 kg on admission to 81 mg this morning. He is seen and examined sitting up in the chair watching TV. He is alert but confused about why he is here. His breathing is stable however he has a persistent dry cough. He denies chest pain, shortness of breath, dizziness or palpitations. Repeat chest xray today reveals improving pulmonary edema with persistent small right pleural effusion and right basilar atelectasis and/or infiltrate. He has been started on IV antibiotics. PHYSICAL EXAMINATION CONSTITUTIONAL: No apparent distress, lethargic, not cooperative with any part of exam, curled up in a blanket, chronically ill-appearing. HEENT: Head is normocephalic. Pupils are equal, round. Sclerae anicteric. Mucous membranes of the mouth are moist. No carotid bruit. CHEST EXAMINATION: Clear to auscultation bilaterally, no rales, rhonchi or wheezes. Diminished bilaterally. HEART EXAMINATION: Regular rate and rhythm. S1, S2 heard. No murmurs, gallops or rub. EXTREMITIES: 2+ peripheral pulses, trace bilateral lower extremity edema and no calf tenderness. ASSESSMENT Acute on chronic diastolic heart failure Altered mental status of unclear etiology, rule out stroke versus metabolic Baseline dementia Hypertension Diabetes mellitus History of aortic aneurysm Chronic kidney disease, appears at baseline creatinine PLAN Transition to oral diuretics 40 mg PO BID. Ongoing medical management and treatment of suspected stroke. We will follow along as needed. Nurse Practitioner note has been reviewed, I agree with a documented findings and plan of care. Patient was seen and examined. Objective - Vital Signs Vital signs: Vital Signs Temp 98.5 F 03/12/20 07:44 Pulse 52 L 03/12/20 07:44 Resp 18 03/12/20 07:44 BP 170/65 03/12/20 07:44 Pulse Ox 90 L 03/12/20 07:44 Intake & Output 03/11/20 03/12/20 03/12/20 18:59 06:59 18:59 Output Total 450 Balance -450 Weight 81.873 kg Output: Urine 450 Other: Voiding Method Diaper Diaper Diaper Incontinent Incontinent Incontinent # Voids 1 3 1 - Labs CBC & Chem 7: 03/12/20 06:50 03/12/20 06:50 Labs: Abnormal Lab Results - Last 24 Hours (Table) 03/11/20 03/11/20 03/11/20 Range/Units 01:06 12:18 15:23 RBC (4.30-5.90) m/uL Hgb (13.0-17.5) gm/dL Hct (39.0-53.0) % MCV (80.0-100.0) fL MCHC (31.0-37.0) g/dL Lymphocytes # (1.0-4.8) k/uL BUN (9-20) mg/dL Creatinine (0.66-1.25) mg/dL Glucose (74-99) mg/dL POC Glucose (mg/dL) 207 H (75-99) mg/dL CK-MB (CK-2) 6.1 H (0.0-2.4) ng/mL Total Protein (6.3-8.2) g/dL Albumin (3.5-5.0) g/dL HDL Cholesterol 39 L (40-60) mg/dL 03/11/20 03/11/20 03/11/20 Range/Units 17:23 20:13 20:59 RBC (4.30-5.90) m/uL Hgb (13.0-17.5) gm/dL Hct (39.0-53.0) % MCV (80.0-100.0) fL MCHC (31.0-37.0) g/dL Lymphocytes # (1.0-4.8) k/uL BUN (9-20) mg/dL Creatinine (0.66-1.25) mg/dL Glucose (74-99) mg/dL POC Glucose (mg/dL) 170 H 271 H (75-99) mg/dL CK-MB (CK-2) 6.2 H (0.0-2.4) ng/mL Total Protein (6.3-8.2) g/dL Albumin (3.5-5.0) g/dL HDL Cholesterol (40-60) mg/dL 03/12/20 03/12/20 03/12/20 Range/Units 01:56 06:46 06:50 RBC 3.42 L (4.30-5.90) m/uL Hgb 10.6 L (13.0-17.5) gm/dL Hct 34.5 L (39.0-53.0) % MCV 100.9 H (80.0-100.0) fL MCHC 30.7 L (31.0-37.0) g/dL Lymphocytes # 0.8 L (1.0-4.8) k/uL BUN (9-20) mg/dL Creatinine (0.66-1.25) mg/dL Glucose (74-99) mg/dL POC Glucose (mg/dL) 210 H 190 H (75-99) mg/dL CK-MB (CK-2) (0.0-2.4) ng/mL Total Protein (6.3-8.2) g/dL Albumin (3.5-5.0) g/dL HDL Cholesterol (40-60) mg/dL 03/12/20 Range/Units 06:50 RBC (4.30-5.90) m/uL Hgb (13.0-17.5) gm/dL Hct (39.0-53.0) % MCV (80.0-100.0) fL MCHC (31.0-37.0) g/dL Lymphocytes # (1.0-4.8) k/uL BUN 51 H (9-20) mg/dL Creatinine 2.15 H (0.66-1.25) mg/dL Glucose 194 H (74-99) mg/dL POC Glucose (mg/dL) (75-99) mg/dL CK-MB (CK-2) (0.0-2.4) ng/mL Total Protein 6.0 L (6.3-8.2) g/dL Albumin 3.2 L (3.5-5.0) g/dL HDL Cholesterol (40-60) mg/dL
[2020-03-12] MEDS: FUROSEMIDE 40 MG TAB PO SCH (15:23)
--- NOTE | 2020-03-12 15:59 | P.PN ---
Subjective Progress Note Date: 03/12/20 The patient was seen at bedside and he is accompanied with his daughter. Per the daughter and she feels that the patient is back to baseline and he doesn't have any further slurring of the speech or she doesn't see any facial weakness. She feels the patient is back to baseline. Objective - Vital Signs Vital signs: Vital Signs Temp 98.5 F 03/12/20 07:44 Pulse 52 L 03/12/20 07:44 Resp 18 03/12/20 07:44 BP 170/65 03/12/20 07:44 Pulse Ox 90 L 03/12/20 07:44 Intake & Output 03/11/20 03/12/20 03/12/20 18:59 06:59 18:59 Intake Total 100 Output Total 450 Balance -450 100 Weight 81.873 kg Intake: Intake, IV Titration 100 Amount Piperacillin-Tazobactam 3 100 .375 gm In Sodium Chloride 0.9% 100 ml @ 25 mls/hr IVPB Q12HR [facility] Rx #:[id number] Output: Urine 450 Other: Voiding Method Diaper Diaper Diaper Incontinent Incontinent Incontinent # Voids 1 3 4 - Exam GENERAL: The patient is sitting on chair and is not in acute distress. CHEST: The heart rate is regular rate rhythm. No murmurs to auscultation. LUNG: Clear to auscultation bilaterally no wheezing noted throughout. Not labored breathing. ABDOMEN/GI: Bowel sounds present in all 4 quadrants. No tenderness to palpation throughout. NEUROLOGICAL: Limited because of patient cooperation. Higher mental function: The patient is awake, alert, oriented to self only. Not oriented to place or time. Is correctly naming objects such as watch, pen and phone. No following command. No aphasia. No neglect. Cranial nerves: The pupils are round, equal and reactive to light. Visual soto are full to threat throughout. Extraocular movement is intact no nystagmus is noted. Facial sensation is unable to assess. No facial weakness noted. No dysarthria (Also per family members he sounds clear). Motor: Gait is defered. The strength is moving all extremities above gravity and no focality noted. Normal tone and bulk. Cerebellum: Unable to assess Sensation: Sensation is intact to painful stimuli throughout. Reflexes (right/left): Unable to assess because of patient's cooperation. Plantars are downgoing bilaterally. - Labs CBC & Chem 7: 03/12/20 06:50 03/12/20 06:50 Labs: Abnormal Lab Results - Last 24 Hours (Table) 03/11/20 03/11/20 03/11/20 Range/Units 15:23 17:23 20:13 RBC (4.30-5.90) m/uL Hgb (13.0-17.5) gm/dL Hct (39.0-53.0) % MCV (80.0-100.0) fL MCHC (31.0-37.0) g/dL Lymphocytes # (1.0-4.8) k/uL BUN (9-20) mg/dL Creatinine (0.66-1.25) mg/dL Glucose (74-99) mg/dL POC Glucose (mg/dL) 170 H 271 H (75-99) mg/dL CK-MB (CK-2) 6.1 H (0.0-2.4) ng/mL Total Protein (6.3-8.2) g/dL Albumin (3.5-5.0) g/dL 03/11/20 03/12/20 03/12/20 Range/Units 20:59 01:56 06:46 RBC (4.30-5.90) m/uL Hgb (13.0-17.5) gm/dL Hct (39.0-53.0) % MCV (80.0-100.0) fL MCHC (31.0-37.0) g/dL Lymphocytes # (1.0-4.8) k/uL BUN (9-20) mg/dL Creatinine (0.66-1.25) mg/dL Glucose (74-99) mg/dL POC Glucose (mg/dL) 210 H 190 H (75-99) mg/dL CK-MB (CK-2) 6.2 H (0.0-2.4) ng/mL Total Protein (6.3-8.2) g/dL Albumin (3.5-5.0) g/dL 03/12/20 03/12/20 03/12/20 Range/Units 06:50 06:50 11:06 RBC 3.42 L (4.30-5.90) m/uL Hgb 10.6 L (13.0-17.5) gm/dL Hct 34.5 L (39.0-53.0) % MCV 100.9 H (80.0-100.0) fL MCHC 30.7 L (31.0-37.0) g/dL Lymphocytes # 0.8 L (1.0-4.8) k/uL BUN 51 H (9-20) mg/dL Creatinine 2.15 H (0.66-1.25) mg/dL Glucose 194 H (74-99) mg/dL POC Glucose (mg/dL) 195 H (75-99) mg/dL CK-MB (CK-2) (0.0-2.4) ng/mL Total Protein 6.0 L (6.3-8.2) g/dL Albumin 3.2 L (3.5-5.0) g/dL Assessment and Plan Assessment: Transient ischemic attack (Left facial droop with dysarthria) Chronic Normal Pressure Hydrocephalus (Shuffling gait for 7-8 years, urinary incontinence and confusion). Dementia possibly due to normal pressure hydrocephalus. Also worsening since the patient about 4 years ago also a component of depression. Depression with pseudobulbar affect Acute kidney insufficiency Diabetes mellitus type 2 Hypertension Hyperlipidemia Acute diastolic congestive heart failure with pleural effusion Plan: CT of the head was read as reported as cerebral atrophy at. Hydrocephalus. No change compared to old exam (04/23/2018). I did review the CT of the head and I found that the patient has mild to minimal moderate diffuse atrophy by the the patient does have hydrocephalus of all ventricle and proportion to the patient's atrophy. Carotid Duplex was performed and was reported as exam is limited as the patient would not cooperate. No hemodynamic significant internal carotid artery stenosis on either side. Mild to moderate of his chronic change at the bifurcation. Unable to adequately visualize the vertebral artery due to exam of dictation. MRI the brain without contrast ordered by the primary team----Daughter wanted it canceled since she said her father will not cooperate for the exam. Patient was started on aspirin 81 mg daily and I started the Lipitor 20 mg daily. Lipid profile: Triglyceride is 83, Cholestrol 98, LDL of 44 and HDL 39. 2-D echo 02/13/20: Was reported as a ejection fraction of 50-55%, severe concentric left ventricular hypertrophy, mild to moderate mitral regurgitation, no significant aortic stenosis, no pericardial effusion. Left atrium is moderately dilated. PT, OT and SPECIALIST FIELD ENGINEER are on board. CT of the head was read as reported as cerebral atrophy at. Hydrocephalus. No change compared to old exam (04/23/2018). I did review the CT of the head and I found that the patient has mild to minimal moderate diffuse atrophy by the the patient does have hydrocephalus of all ventricle and proportion to the patient's atrophy. EKG was reported as sinus bradycardia, ventricle rate of 53. Prolonged QT. The QT QTC was 524/491 ms. Chest x-ray was reported as congestive heart failure and pulmonary edema appears worse than the last exam. Pleural fluid unchanged. Regarding his dementia: vitamin B12: 861, folate: 11.2. TSH: 3.990 He is on Aricept 10 mg daily. Regarding his depression he is on Lexapro 20 mg daily. Regarding the patient chronic normal pressure hydrocephalus I explained to the patient daughter (holds power of food aide), son as well as the [id number] that the patient's presentation that seem to correlate with this condition and they stated that that he has been having it for 7-8 years. They refused any intervention as inpatient and were told to consider follow-up with neurologist as an outpatient. From a neurology perspective the per family member she is back at baseline there is no further workup needed from neurology he needs to follow up with a neurologist as an outpatient. The plan was discussed with the patient daughter was at bedside. Cuong Hills M.D. Neuro-hospitalist Time with Patient: Greater than 30
[2020-03-12 17:00] LABS: Glucose,Whole Blood 204 mg/dL (75-99)
[2020-03-12 19:41] VITALS: TEMP 97.6
[2020-03-12] MEDS: MELATONIN 5 MG TABLET PO SCH (21:21)
[2020-03-12] MEDS: HEPARIN SODIUM,PORCINE 5,000 UNIT/ML 1 ML VIAL SQ SCH (21:21)
[2020-03-12] MEDS: DONEPEZIL 10 MG TAB PO SCH (21:21)
[2020-03-12] MEDS: ATORVASTATIN 20 MG TAB PO SCH (21:21)
[2020-03-13 02:10] LABS: Glucose,Whole Blood 205 mg/dL (75-99)
[2020-03-13 06:47] LABS: Glucose,Whole Blood 226 mg/dL (75-99)
[2020-03-13] MEDS ORDERED: PANTOPRAZOLE 40 MG TABLET PO SCH (07:30)
--- NOTE | 2020-03-13 07:52 | P.DS ---
Providers Date of admission: 03/11/20 02:26 Expected date of discharge: 03/13/20 Attending physician: Roula Mcadams Consults: 03/11/20 09:01 Consult Physician Routine Consulting Provider: Cuong Hills Consult Reason/Comments: CVA slurred speech Do you want consulting provider notified?: Yes 03/11/20 09:27 Consult Physician Routine Consulting Provider: Jose Lerner Consult Reason/Comments: CHF Do you want consulting provider notified?: Yes Primary care physician: Roula Mcadams Hospital Course: HISTORY OF PRESENT ILLNESS This is an 84-year-old male patient of Dr. Mcadams residing at [facility] [place] with history of diabetes mellitus type 2, hypertension hyperlipidemia dyslipidemia, dementia aortic aneurysm, pseudobulbar affect depression, admitted to the emergency room secondary to new onset slurred speech that happened at bedtime, this is also noticeable by the nursing staff of a facial droop, prior to these patient has been baseline with some behaviors, has difficulty with reorienting his behaviors, uncomfortable either sitting down and laying down and standing up, the medications were added over the past 2 weeks to keisha his symp toms, however it looks like these are more as lumbar stenosis type pain, no cold has elevated most of his discomfort, patient's unable to report any of his symptoms, where in the process of weaning off his Seroquel 25 which was started 7 days ago. When seen in the emergency room, patient cannot provide much of the history, there is also a facial droop that was noted, when seen by myself today, patient awakens, can follow verbal commands however cannot feel feel a full neuro evaluation. There is a facial droop noted left side, unable to elicit a full client services manager on the left arm, able to client services manager on the right arm, and able to move legs bilaterally. 03/12: Patient continues to have some right-sided weakness. PT, OT and speech therapies will be seeing him today. Patient is followed by cardiology for acute on chronic diastolic heart failure Renal ultrasound reveals no hydronephrosis bilaterally. Suboptimal study without acute finding identified. Carotid ultrasound revealed no hemodynamically significant internal carotid artery stenosis on either side. Mild to moderate atherosclerotic change the bifurcations. Unable to adequately visualize the vertebral arteries due to exam limitations. MRI was canceled as daughter wanted it canceled as he is unable to cooperate for exam. Patient has been seen by neurology for chronic normal pressure hydrocephalus. Neurology has recommended aspirin 81 mg and Lipitor 20 g daily. Patient is also on Aricept 10 mg daily for dementia. Echocardiogram from February 12 revealed EF of 50-55% with severe concentric left ventricle hypertrophy, mild to moderate aortic valve sclerosis, [id number] mitral regurgitation. Discharge plan will be to return to [facility] [place] 03/13: Patient is denying any new complaints. He denies shortness of breath, chest pain. He is currently on Zosyn which will be transitioned to Levaquin for possible aspiration pneumonia. We will plan to continue higher dose of Lasix at the [facility] which will be monitored closely at [facility]. Patient has been afebrile, heart rate 59, blood pressure 176/75, pulse ox 96% on 2 L nasal cannula. Repeat blood work reveals Yvonne BC 7.7, hemoglobin 11, platelet count 189. Electrolytes normal, BUN 53 and creatinine 2.23. Blood sugars are running in the 200s and patient will be resumed back on Tradjenta at [facility]. Renal function will need to be monitored closely. Patient will be discharged back to [facility] today in stable condition. ASSESSMENT AND PLAN 1. Left facial droop and shuffling gait secondary to chronic hydrocephalus. 2. Acute on chronic diastolic heart failure with pleural effusion. 3. 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 4. Diabetes mellitus type 2. 5. Hypertension. 6. Hyperlipidemia. 7. Anemia of chronic disease. 8. Elevated PSA. 9. 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 10. Acute hypoxic respiratory failure secondary to heart failure, possible aspiration pneumonia. Discharge plan: Return to [facility] under the care of Dr. Mcadams Impression and plan of care have been directed as dictated by the signing physician. Mena Gallardo nurse practitioner acting as scribe for signing physician. Patient Condition at Discharge: Good Plan - Discharge Summary New Discharge Prescriptions: New Atorvastatin [Lipitor] 20 mg PO HS tab ALPRAZolam [Xanax] 0.25 mg PO TID #9 tab Furosemide [Lasix] 40 mg PO BID@0900,1600 tab Levofloxacin [Levaquin] 250 mg PO Q48H 7 Days #3 tablet Continue Acetaminophen Tab [Tylenol] 650 mg PO Q4H PRN PRN Reason: Fever Loperamide HCl [Imodium A-D] 2 - 4 mg PO QID PRN PRN Reason: Diarrhea Tamsulosin HCl [Flomax] 0.4 mg PO BID@0900,2099 Metoprolol Tartrate 12.5 mg PO BID@0900,2100 busPIRone HCL 15 mg PO BID@0900,2100 Melatonin 10 mg PO HS@2100 Escitalopram [Lexapro] 20 mg PO DAILY@0900 Donepezil [Aricept] 10 mg PO HS@2100 Aspirin [Adult Low Dose Aspirin EC] 81 mg PO DAILY@0900 Nitroglycerin Sl Tabs [Nitrostat] 0.4 mg SL Q5M PRN PRN Reason: Chest Pain Menthol-Camphor Lotion [Sarna Lotion 0.5%-0.5%] 1 applic TOPICAL DAILY PRN PRN Reason: PRURITIS/SCRATCHING Menthol-Camphor Lotion [Sarna Lotion 0.5%-0.5%] 1 applic TOPICAL BID Glucerna Shake 240 ml PO TID@1000,1400,1999 hydrALAZINE HCL [Apresoline] 50 mg PO BID tab Linagliptin [Tradjenta] 5 mg PO DAILY tablet HYDROcodone/APAP 5-325MG [Hollister 5-325] 1 tab PO Q12HR PRN #6 tab PRN Reason: Pain Changed Dextromethorphan HBr/Quinidine [Nuedexta 20-10 mg Capsule] 1 cap PO DAILY #0 Discontinued Simvastatin [Zocor] 10 mg PO HS@2100 Furosemide [Lasix] 40 mg PO DAILY@0900 #0 HYDROcodone/APAP 5-325MG [Hollister 5-325] 1 tab PO DIRECTED ALPRAZolam [Xanax] 0.5 mg PO TID@0900,1300,2100 QUEtiapine [SEROquel] 12.5 mg PO HS@2100 Discharge Medication List Acetaminophen Tab [Tylenol] 650 mg PO Q4H PRN 02/13/20 [History] Aspirin [Adult Low Dose Aspirin EC] 81 mg PO DAILY@0902/13/20 [History] Donepezil [Aricept] 10 mg PO HS@2100 02/13/20 [History] Escitalopram [Lexapro] 20 mg PO DAILY@89902/13/20 [History] Glucerna Shake 240 ml PO TID@1000,1400,199902/13/20 [History] Loperamide HCl [Imodium A-D] 2 - 4 mg PO QID PRN 02/13/20 [History] Melatonin 10 mg PO HS@209902/13/20 [History] Menthol-Camphor Lotion [Sarna Lotion 0.5%-0.5%] 1 applic TOPICAL BID 02/13/20 [History] Menthol-Camphor Lotion [Sarna Lotion 0.5%-0.5%] 1 applic TOPICAL DAILY PRN 02/13/20 [History] Metoprolol Tartrate 12.5 mg PO BID@899,209902/13/20 [History] Nitroglycerin Sl Tabs [Nitrostat] 0.4 mg SL Q5M PRN 02/13/20 [History] Tamsulosin HCl [Flomax] 0.4 mg PO BID@0900,209902/13/20 [History] busPIRone HCL 15 mg PO BID@899,209902/13/20 [History] Linagliptin [Tradjenta] 5 mg PO DAILY tablet 02/15/20 [Rx] hydrALAZINE HCL [Apresoline] 50 mg PO BID tab 02/15/20 [Rx] ALPRAZolam [Xanax] 0.25 mg PO TID #9 tab 03/13/20 [Rx] Atorvastatin [Lipitor] 20 mg PO HS tab 03/13/20 [Rx] Dextromethorphan HBr/Quinidine [Nuedexta 20-10 mg Capsule] 1 cap PO DAILY #0 03/13/20 [Rx] Furosemide [Lasix] 40 mg PO BID@0900,1600 tab 03/13/20 [Rx] HYDROcodone/APAP 5-325MG [Hollister 5-325] 1 tab PO Q12HR PRN #6 tab 03/13/20 [Rx] Levofloxacin [Levaquin] 250 mg PO Q48H 7 Days #3 tablet 03/13/20 [Rx] Follow up Appointment(s)/Referral(s): Roula Mcadams MD [Primary Care Provider] - 1-2 days [facility] [place], [NON-STAFF] - As Needed Discharge Disposition: TRANSFER TO SNF/ECF
[2020-03-13] MEDS: METOPROLOL TARTRATE 12.5 MG TAB PO SCH (08:50)
[2020-03-13] MEDS: hydrALAZINE HCL 50 MG TAB PO SCH (08:50)
[2020-03-13] MEDS: LINAGLIPTIN 5 MG TABLET PO SCH (08:50)
[2020-03-13] MEDS: ALPRAZolam 0.25 MG TAB PO SCH (08:50)
[2020-03-13] MEDS: ESCITALOPRAM 20 MG TAB PO SCH (08:50)
[2020-03-13] MEDS: ASPIRIN 81 MG PO SCH (08:50)
[2020-03-13] MEDS: TAMSULOSIN 0.4 MG CAP.ER.24H PO SCH (08:51)
[2020-03-13] MEDS: HEPARIN SODIUM,PORCINE 5,000 UNIT/ML 1 ML VIAL SQ SCH (08:51)
[2020-03-13] MEDS: FUROSEMIDE 40 MG TAB PO SCH (08:51)
[2020-03-13] MEDS: busPIRone HCl 5 MG TAB PO SCH (08:51)
[2020-03-13] MEDS ORDERED: LEVOFLOXACIN 250 MG TAB PO SCH (09:00)
[2020-03-13] MEDS: NON FORMULARY DRUG (Dextromethorphan Hbr/Quinidine [Nuedexta 20-10 Mg Capsule] 1 CAP) PO SCH (09:04)
[2020-03-13] MEDS: PIPERACILLIN-TAZOBACTAM 3.375 GM in SODIUM CHLORIDE 0.9% 100 ML IVPB SCH ×3 (09:04)
[2020-03-13 09:34] LABS: Basophils % (A) 1 %; Eosinophils # (A) 0.1 k/uL (0-0.7); Eosinophils % (A) 1 %; HCT 35.6 % (39.0-53.0); Hypochromasia Slight; Lymphocytes # (A) 0.5 k/uL (1.0-4.8); Lymphocytes % (A) 7 %; MCH 31.1 pg (25.0-35.0); MCHC 30.8 g/dL (31.0-37.0); MCV 101.1 fL (80.0-100.0); Macrocytosis Slight; Mean Platelet Volume 9.4; Monocytes # (A) 0.3 k/uL (0-1.0); Monocytes % (A) 4 %; Neutrophils # (A) 6.7 k/uL (1.3-7.7); Neutrophils % (A) 87 %; Platelet Count 189 k/uL (150-450); RBC 3.53 m/uL (4.30-5.90); RDW 13.8 % (11.5-15.5); WBC 7.7 k/uL (3.8-10.6)
[2020-03-13 09:49] VITALS: BP 176/75; PULSE 59; RESP 18
[2020-03-13 09:49] LABS: Albumin 3.6 g/dL (3.5-5.0); Calcium 8.8 mg/dL (8.4-10.2); Potassium 4.6 mmol/L (3.5-5.1); Total Bilirubin 0.6 mg/dL (0.2-1.3); Total Protein 6.5 g/dL (6.3-8.2)
[2020-03-13] MEDS ORDERED: INSULIN ASPART (NovoLOG) 100 UNIT/ML VIAL SQ SCH (12:30)
--- NOTE | 2020-03-13 21:26 | P.PN ---
Subjective Progress Note Date: 03/13/20 Patient was seen today and he was sitting outside of bed. He had no complaints. He denies of any weakness any numbness. Objective - Vital Signs Vital signs: Vital Signs Temp 97.6 F 03/12/20 19:40 Pulse 59 L 03/13/20 09:48 Resp 18 03/13/20 09:49 BP 176/75 03/13/20 09:48 Pulse Ox 96 03/13/20 09:49 Intake & Output 03/13/20 03/13/20 03/14/20 06:59 18:59 06:59 Weight 77.337 kg Other: Voiding Method Diaper Diaper Incontinent Incontinent # Voids 1 # Bowel Movements 1 - Exam GENERAL: The patient is sitting on chair and is not in acute distress. CHEST: The heart rate is regular rate rhythm. No murmurs to auscultation. LUNG: Clear to auscultation bilaterally no wheezing noted throughout. Not labored breathing. ABDOMEN/GI: Bowel sounds present in all 4 quadrants. No tenderness to palpation throughout. NEUROLOGICAL: Limited because of patient cooperation. Higher mental function: The patient is awake, alert, oriented to self only. Not oriented to place or time. Is correctly naming objects such as watch, pen and phone. No following command. No aphasia. No neglect. Cranial nerves: The pupils are round, equal and reactive to light. Visual soto are full to threat throughout. Extraocular movement is intact no nystagmus is noted. Facial sensation is unable to assess. No facial weakness noted. No dysarthria (Also per family members he sounds clear). Motor: Gait is defered. The strength is moving all extremities above gravity and no focality noted. Normal tone and bulk. Cerebellum: Unable to assess Sensation: Sensation is intact to painful stimuli throughout. Reflexes (right/left): Unable to assess because of patient's cooperation. Plantars are downgoing bilaterally. - Labs CBC & Chem 7: 03/13/20 09:00 03/13/20 09:00 Labs: Abnormal Lab Results - Last 24 Hours (Table) 03/12/20 03/13/20 03/13/20 Range/Units 06:50 02:08 06:46 RBC (4.30-5.90) m/uL Hgb (13.0-17.5) gm/dL Hct (39.0-53.0) % MCV (80.0-100.0) fL MCHC (31.0-37.0) g/dL Lymphocytes # (1.0-4.8) k/uL BUN (9-20) mg/dL Creatinine (0.66-1.25) mg/dL Glucose (74-99) mg/dL POC Glucose (mg/dL) 205 H 226 H (75-99) mg/dL Total PSA 33.8 H (<=4.0) ng/mL 03/13/20 03/13/20 Range/Units 09:00 09:00 RBC 3.53 L (4.30-5.90) m/uL Hgb 11.0 L (13.0-17.5) gm/dL Hct 35.6 L (39.0-53.0) % MCV 101.1 H (80.0-100.0) fL MCHC 30.8 L (31.0-37.0) g/dL Lymphocytes # 0.5 L (1.0-4.8) k/uL BUN 53 H (9-20) mg/dL Creatinine 2.23 H (0.66-1.25) mg/dL Glucose 222 H (74-99) mg/dL POC Glucose (mg/dL) (75-99) mg/dL Total PSA (<=4.0) ng/mL Assessment and Plan Assessment: Transient ischemic attack (Left facial droop with dysarthria) Chronic Normal Pressure Hydrocephalus (Shuffling gait for 7-8 years, urinary incontinence and confusion). Dementia possibly due to normal pressure hydrocephalus. Also worsening since the patient about 4 years ago also a component of depression. Depression with pseudobulbar affect Acute kidney insufficiency Diabetes mellitus type 2 Hypertension Hyperlipidemia Acute diastolic congestive heart failure with pleural effusion Plan: CT of the head was read as reported as cerebral atrophy at. Hydrocephalus. No change compared to old exam (04/23/2018). I did review the CT of the head and I found that the patient has mild to minimal moderate diffuse atrophy by the the patient does have hydrocephalus of all ventricle and proportion to the patient's atrophy. Carotid Duplex was performed and was reported as exam is limited as the patient would not cooperate. No hemodynamic significant internal carotid artery s tenosis on either side. Mild to moderate of his chronic change at the bifurcation. Unable to adequately visualize the vertebral artery due to exam of dictation. MRI the brain without contrast ordered by the primary team----Daughter wanted it canceled since she said her father will not cooperate for the exam. Patient was started on aspirin 81 mg daily and I started the Lipitor 20 mg daily. Lipid profile: Triglyceride is 83, Cholestrol 98, LDL of 44 and HDL 39. 2-D echo 02/13/20: Was reported as a ejection fraction of 50-55%, severe concentric left ventricular hypertrophy, mild to moderate mitral regurgitation, no significant aortic stenosis, no pericardial effusion. Left atrium is moderately dilated. PT, OT and SENIOR ASSOCIATE are on board. CT of the head was read as reported as cerebral atrophy at. Hydrocephalus. No change compared to old exam (04/23/2018). I did review the CT of the head and I found that the patient has mild to minimal moderate diffuse atrophy by the the patient does have hydrocephalus of all ventricle and proportion to the patient's atrophy. EKG was reported as sinus bradycardia, ventricle rate of 53. Prolonged QT. The QT QTC was 524/491 ms. Chest x-ray was reported as congestive heart failure and pulmonary edema appears worse than the last exam. Pleural fluid unchanged. Regarding his dementia: vitamin B12: 861, folate: 11.2. TSH: 3.990 He is on Aricept 10 mg daily. Regarding his depression he is on Lexapro 20 mg daily. Regarding the patient chronic normal pressure hydrocephalus I explained to the patient daughter (holds power of personal injury attorney), son as well as the [id number] that the patient's presentation that seem to correlate with this condition and they stated that that he has been having it for 7-8 years. They refused any intervention as inpatient and were told to consider follow-up with neurologist as an outpatient. Family feel he is back to baseline. From a neurology perspective, there is no further workup needed. He needs to follow up with a neurologist as an outpatient. The plan was discussed with the patient daughter. Cuong Hills M.D. Neuro-hospitalist Time with Patient: Greater than 30
--- NOTE | 2020-03-17 11:03 | CDI ---
Documentation Clarification Form Date: 03/17/20 From: Amanda Gustafson CCS Phone: If you have a question about this query, please contact Salina Mcgregor, Soda Column Operator at [phone] between 8am and 5pm. Admit Date: 03/11/20 Discharge Date:03/13/20 Patient Name: Santana Williamson Visit Number: [id number] ATTENTION: The Clinical Documentation Specialists (CDI) and [facility] Coding Staff appreciate your assistance in clarifying documentation. Please respond to the clarification below the line at the bottom and electronically sign. The CDI & [facility] Coding staff will review the response and follow-up if needed. Please note: Queries are made part of the Legal Health Record. If you have any questions, please contact the author of this message via ITS. Dear Dr. Franco, Conflicting documentation has been found in the medical record: PN 03/12, 03/13 document in the assessment: Transient ischemic attack (Left facial droop with dysarthria DS documents: Left facial droop and shuffling gait secondary to chronic hydrocephalus. History/Risk Factors: Hydrocephalus, CKD, DM, HTN, Hx CVA, Dementia Clinical Indicators: Slurred speech, Facial droop, Gait abnormalities CT: Cerebral atrophy.Hydrocephalus.No change compared to old exam. Treatment: Neuro work up, Narcan 0.2 mg IV Consult: Jeana In your opinion, what is the most clinically appropriate diagnosis for this patient? TIA xx Chronic hydrocephalus Other explanation of clinical findings Unable to determine (no explanation for clinical findings) MTDD
== END 2020-03-13 11:38 | DRG 56 ==
LOC: EC 00:22 → 6NMEDSUR 02:26
PROVIDERS: ADMIT Family Medicine; ATTEND Family Medicine
DX: G91.2 (Idiopathic) normal pressure hydrocephalus (principal); I50.33 Acute on chronic diastolic (congestive) heart failure; J96.01 Acute respiratory failure with hypoxia; J69.0 Pneumonitis due to inhalation of food and vomit; N17.9 Acute kidney failure, unspecified; F03.91 Unspecified dementia, unspecified severity, with behavioral disturbance; I13.0 Hypertensive heart and chronic kidney disease with heart failure and stage 1 through stage 4 chronic kidney disease, or unspecified chronic kidney disease; R45.851 Suicidal ideations; D63.1 Anemia in chronic kidney disease; E11.22 Type 2 diabetes mellitus with diabetic chronic kidney disease; N18.3 Chronic kidney disease, stage 3 (moderate); Z66 Do not resuscitate; R29.810 Facial weakness; R47.81 Slurred speech; E78.5 Hyperlipidemia, unspecified; F17.200 Nicotine dependence, unspecified, uncomplicated; R00.1 Bradycardia, unspecified; R47.1 Dysarthria and anarthria; I08.0 Rheumatic disorders of both mitral and aortic valves; F34.1 Dysthymic disorder; R32 Unspecified urinary incontinence; K46.9 Unspecified abdominal hernia without obstruction or gangrene; H26.9 Unspecified cataract; F48.2 Pseudobulbar affect; R53.1 Weakness; R97.20 Elevated prostate specific antigen [PSA]; M48.061 Spinal stenosis, lumbar region without neurogenic claudication; Z79.82 Long term (current) use of aspirin; Z79.899 Other long term (current) drug therapy; Z79.84 Long term (current) use of oral hypoglycemic drugs; Z98.890 Other specified postprocedural states; Z86.73 Personal history of transient ischemic attack (TIA), and cerebral infarction without residual deficits; Z86.79 Personal history of other diseases of the circulatory system; Z91.018 Allergy to other foods; Z82.3 Family history of stroke; Z83.3 Family history of diabetes mellitus; Z82.49 Family history of ischemic heart disease and other diseases of the circulatory system
CPT/HCPCS: 36415; 70450; 71045; 76700; 80053; 80061; 81001; 82550; 82553; 82607; 82746; 83690; 84153; 84443; 84484; 85025; 85610; 85730; 87086; 93005; 93880; 99285